=== PATIENT | male | born 1995 | race Caucasian/White ===

== ENCOUNTER 2016-10-15 09:53 | Inpatient (IN) | payer OTHER ==
[2016-10-15 10:32] VITALS: BMI 27.2
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
[2016-10-15] MEDS ORDERED: MENTHOL/PHENOL 1 EACH UD MM PRN (14:00)
[2016-10-15] MEDS ORDERED: guaiFENesin/D-METHORPHAN HB 10 ML UNIT-DOSE CUPS PO PRN (14:00)
[2016-10-15] MEDS ORDERED: diphenhydrAMINE HCL 50 MG CAPSULE PO PRN (14:00)
[2016-10-15] MEDS ORDERED: MAGNESIUM CITRATE 300 ML BOTTLE PO PRN (14:00)
[2016-10-15] MEDS ORDERED: LOPERAMIDE HCL 2 MG CAPSULE PO PRN (14:00)
[2016-10-15] MEDS ORDERED: MAG HYDROX/AL HYDROX/SIMETH 30 ML UNIT-DOSE CUP PO PRN (14:00)
[2016-10-15] MEDS ORDERED: MAGNESIUM HYDROX 2400MG/30ML ORAL SUSPENSION 30 ML CUP PO PRN (14:00)
[2016-10-15] MEDS ORDERED: P-EPHED 60MG/TRIPROLIDI 2.5MG TABLET PO PRN (14:00)
[2016-10-15] MEDS ORDERED: NICOTINE POLACRILEX 4 MG GUM BUC PRN (14:00)
[2016-10-15] MEDS ORDERED: ACETAMINOPHEN 325 MG TABLET (FP) PO PRN (14:00)
[2016-10-15] MEDS ORDERED: METHADONE HCL 10 MG TABLET (FOR DETOX USE ONLY) PO ONE ×2 (14:00→23:00)
[2016-10-15] MEDS ORDERED: hydrOXYzine PAMOATE 50 MG CAPSULE (FP) PO PRN (14:00)
[2016-10-15] MEDS ORDERED: diazePAM 5 MG TABLET PO ONE (14:13)
[2016-10-15] MEDS: diazePAM 5 MG TABLET PO SCH ×2 (14:33→22:12)
[2016-10-15 17:26] LABS: URINE APPEARANCE TURBID; URINE BILIRUBIN NEGATIVE (NEGATIVE); URINE BLOOD NEGATIVE (NEGATIVE); URINE COLOR YELLOW; URINE GLUCOSE (UA) NEGATIVE (NEGATIVE); URINE KETONE NEGATIVE (NEGATIVE); URINE LEUK ESTERASE NEGATIVE (NEGATIVE); URINE NITRITE NEGATIVE (NEGATIVE); URINE PROTEIN NEGATIVE (NEGATIVE); URINE UROBILINOGEN NEGATIVE E.U./dl (0.2-1.0)
[2016-10-15] MEDS: THIAMINE HCL 100 MG TABLET (FP) PO SCH (22:12)
[2016-10-16] MEDS: diazePAM 5 MG TABLET PO PRN ×2 (01:49→10:33)
[2016-10-16] MEDS: IBUPROFEN 400 MG TABLET (FP) PO PRN (01:49)
[2016-10-16] MEDS: diazePAM 5 MG TABLET PO SCH ×3 (06:15→22:35)
[2016-10-16] MEDS ORDERED: METHADONE HCL 10 MG TABLET (FOR DETOX USE ONLY) PO SCH (10:00)
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
[2016-10-16] MEDS: PRENATAL VITAMINS W/ FOLIC ACID TABLET (FP) PO SCH (10:32)
[2016-10-16] MEDS: NICOTINE 21 MG/24 HOURS TOPICAL PATCH TD SCH (10:33)
[2016-10-16 11:02] LABS: MCH 29.1 pg (25.7-33.7); MCHC 33.5 g/dl (32.0-35.9); MEAN CELL VOLUME 86.9 fl (80-96); MEAN PLT VOLUME 9.5 fl (7.5-11.1); PLATELET COUNT 227 K/MM3 (134-434); RDW 14.2 % (11.9-15.9); WHITE BLOOD COUNT 6.8 K/mm3 (4.0-10.0)
[2016-10-16 11:38] LABS: ALBUMIN 4.4 g/dl (3.4-5.0); ANION GAP 9 (8-16); CALCIUM 10.1 mg/dL (8.5-10.1); CO2 29 mmol/L (21-32); CREATININE 1.1 mg/dL (0.7-1.3); GLUCOSE,RANDOM 117 mg/dL (74-106); SGOT/AST 25 U/L (15-37); SGPT/ALT 44 U/L (12-78); TOT PROT 7.6 g/dl (6.4-8.2)
[2016-10-16 11:39] LABS: ALK PHOS 104 U/L (45-117)
--- NOTE | 2016-10-16 13:50 | PN ---
S CIWA - CIWA Score Nausea/Vomitin Muscle Tremors: 4-Moderate,w/Arms Extend Anxiety: 4-Mod. Anxious/Guarded Agitation: 4-Moderately Restless Paroxysmal Sweats: 3 Orientation: 0-Oriented Tacttile Disturbances: 1-Very Mild Itch/Numbness Auditory Disturbances: 0-None Visual Disturbances: 0-None Headache: 1-Very Mild CIWA-Ar Total Score: 20 BHS COWS - Scale Resting Pulse: 1= [place] 81-100 Sweatin= Chills/Flushing Restless Observation: 1= Difficult to Sit Still Pupil Size: 1= Pupils >than Normal Bone or Joint Aches: 1= Mild Discomfort Runny Nose/ Eye Tearin= Nasal Congestion GI Upset > 30mins: 2= Nausea/Diarrhea Tremor Observation of Outstretched Hands: 2= Slight Tremor Visible Yawning Observation: 1= 1-2x During Session Anxiety or Irritability: 2=Irritable/Anxious Goose Flesh Skin: 3=Piloerection COWS Score: 16 S Progress Note (SOAP) Subjective: nausea, sweats, interrupted sleep, anxiety, tremor Objective: 10/16/16 13:50 Vital Signs - 24 hr 10/15/16 10/15/16 10/15/16 14:53 17:45 21:53 Temperature 98.4 F 98.4 F 98.8 F Pulse Rate 80 111 H 81 Respiratory 16 20 18 Rate Blood Pressure 125/78 123/69 146/85 10/16/16 10/16/16 10/16/16 00:30 03:30 06:24 Temperature 97.3 F L Pulse Rate 64 Respiratory 16 18 16 Rate Blood Pressure 122/68 10/16/16 09:59 Temperature 98.1 F Pulse Rate 102 H Respiratory 20 Rate Blood Pressure 141/76 Laboratory Tests 10/15/16 10/16/16 10/16/16 16:00 06:10 06:10 WBC 6.8 RBC 5.44 Hgb 15.9 D Hct 47.3 D MCV 86.9 MCHC 33.5 RDW 14.2 Plt Count 227 D MPV 9.5 Sodium 139 Potassium 4.5 Chloride 101 Carbon Dioxide 29 Anion Gap 9 BUN 13 D Creatinine 1.1 Creat Clearance w eGFR > 60 Random Glucose 117 H D Calcium 10.1 Total Bilirubin 1.0 D AST 25 D ALT 44 D Alkaline Phosphatase 104 Total Protein 7.6 D Albumin 4.4 D Urine Color Yellow Urine Appearance Turbid Urine pH 7.0 Ur Specific [place] 1.019 Urine Protein Negative Urine Glucose (UA) Negative Urine Ketones Negative Urine Blood Negative Urine Nitrite Negative Urine Bilirubin Negative Urine Urobilinogen Negative Ur Leukocyte Esterase Negative Assessment: 10/16/16 13:50 withdrawal sx Plan: cont detox
[2016-10-16] MEDS: THIAMINE HCL 100 MG TABLET (FP) PO SCH (22:35)
[2016-10-16] MEDS: ZOLPIDEM TARTRATE 5 MG TABLET PO PRN (22:35)
[2016-10-17] MEDS: PRENATAL VITAMINS W/ FOLIC ACID TABLET (FP) PO SCH (10:48)
[2016-10-17] MEDS: METHADONE HCL 5 MG TABLET (FOR DETOX USE ONLY) PO SCH (10:48)
[2016-10-17] MEDS: diazePAM 5 MG TABLET PO SCH ×2 (10:49→22:24)
[2016-10-17] MEDS: NICOTINE 21 MG/24 HOURS TOPICAL PATCH TD SCH (10:49)
[2016-10-17] MEDS: IBUPROFEN 400 MG TABLET (FP) PO PRN (10:52)
--- NOTE | 2016-10-17 11:18 | PN ---
S CIWA - CIWA Score Nausea/Vomitin Muscle Tremors: 4-Moderate,w/Arms Extend Anxiety: 4-Mod. Anxious/Guarded Agitation: 4-Moderately Restless Paroxysmal Sweats: 3 Orientation: 0-Oriented Tacttile Disturbances: 0-None Auditory Disturbances: 0-None Visual Disturbances: 0-None Headache: 0-None Present CIWA-Ar Total Score: 18 BHS COWS - Scale Resting Pulse: 0= [place] 80 or Below Sweatin= Chills/Flushing Restless Observation: 1= Difficult to Sit Still Pupil Size: 1= Pupils >than Normal Bone or Joint Aches: 1= Mild Discomfort Runny Nose/ Eye Tearin= Nasal Congestion GI Upset > 30mins: 2= Nausea/Diarrhea Tremor Observation of Outstretched Hands: 2= Slight Tremor Visible Yawning Observation: 1= 1-2x During Session Anxiety or Irritability: 2=Irritable/Anxious Goose Flesh Skin: 3=Piloerection COWS Score: 15 BHS Progress Note (SOAP) Subjective: nausea, sweats, interrupted sleep, anxiety, tremor, Objective: 10/17/16 11:17 Vital Signs - 8 hr 10/17/16 10/17/16 10/17/16 03:30 06:00 10:55 Temperature 97.7 F 97.9 F Pulse Rate 69 75 Respiratory 18 18 20 Rate Blood Pressure 110/74 140/76 Laboratory Tests 10/15/16 10/16/16 10/16/16 16:00 06:10 06:10 WBC 6.8 RBC 5.44 Hgb 15.9 D Hct 47.3 D MCV 86.9 MCHC 33.5 RDW 14.2 Plt Count 227 D MPV 9.5 Sodium 139 Potassium 4.5 Chloride 101 Carbon Dioxide 29 Anion Gap 9 BUN 13 D Creatinine 1.1 Creat Clearance w eGFR > 60 Random Glucose 117 H D Calcium 10.1 Total Bilirubin 1.0 D AST 25 D ALT 44 D Alkaline Phosphatase 104 Total Protein 7.6 D Albumin 4.4 D Urine Color Yellow Urine Appearance Turbid Urine pH 7.0 Ur Specific [place] 1.019 Urine Protein Negative Urine Glucose (UA) Negative Urine Ketones Negative Urine Blood Negative Urine Nitrite Negative Urine Bilirubin Negative Urine Urobilinogen Negative Ur Leukocyte Esterase Negative Assessment: 10/17/16 11:17 withdrawal sx Plan: cont detox
[2016-10-17] MEDS: diazePAM 5 MG TABLET PO PRN ×2 (14:12→23:48)
[2016-10-17] MEDS: ZOLPIDEM TARTRATE 5 MG TABLET PO PRN (22:25)
[2016-10-17] MEDS: THIAMINE HCL 100 MG TABLET (FP) PO SCH (22:26)
[2016-10-18] MEDS: PRENATAL VITAMINS W/ FOLIC ACID TABLET (FP) PO SCH (10:42)
[2016-10-18] MEDS: NICOTINE 21 MG/24 HOURS TOPICAL PATCH TD SCH (10:42)
[2016-10-18] MEDS: diazePAM 5 MG TABLET PO SCH ×2 (10:42→22:07)
[2016-10-18] MEDS: METHADONE HCL 5 MG TABLET (FOR DETOX USE ONLY) PO SCH (10:42)
--- NOTE | 2016-10-18 11:23 | PN ---
BHS Progress Note (SOAP) Subjective: cold sweats, lbp Objective: 10/18/16 11:22 Vital Signs Temperature 97.5 F L 10/18/16 10:12 Pulse Rate 71 10/18/16 10:12 Respiratory Rate 16 10/18/16 10:12 Blood Pressure 141/96 10/18/16 10:12 O2 Sat by Pulse Oximetry (%) Laboratory Tests 10/15/16 10/16/16 10/16/16 16:00 06:10 06:10 WBC 6.8 RBC 5.44 Hgb 15.9 D Hct 47.3 D MCV 86.9 MCHC 33.5 RDW 14.2 Plt Count 227 D MPV 9.5 Sodium 139 Potassium 4.5 Chloride 101 Carbon Dioxide 29 Anion Gap 9 BUN 13 D Creatinine 1.1 Creat Clearance w eGFR > 60 Random Glucose 117 H D Calcium 10.1 Total Bilirubin 1.0 D AST 25 D ALT 44 D Alkaline Phosphatase 104 Total Protein 7.6 D Albumin 4.4 D Urine Color Yellow Urine Appearance Turbid Urine pH 7.0 Ur Specific [place] 1.019 Urine Protein Negative Urine Glucose (UA) Negative Urine Ketones Negative Urine Blood Negative Urine Nitrite Negative Urine Bilirubin Negative Urine Urobilinogen Negative Ur Leukocyte Esterase Negative RPR Titer 10/16/16 06:10 WBC RBC Hgb Hct MCV MCHC RDW Plt Count MPV Sodium Potassium Chloride Carbon Dioxide Anion Gap BUN Creatinine Creat Clearance w eGFR Random Glucose Calcium Total Bilirubin AST ALT Alkaline Phosphatase Total Protein Albumin Urine Color Urine Appearance Urine pH Ur Specific [place] Urine Protein Urine Glucose (UA) Urine Ketones Urine Blood Urine Nitrite Urine Bilirubin Urine Urobilinogen Ur Leukocyte Esterase RPR Titer Nonreactive pt aox3 in nad ambulating Assessment: 10/18/16 11:23 withdrawl sx's Plan: cont. detox increase fluids motrin prn
--- NOTE | 2016-10-18 12:48 | EKG ---
Test Reason : Blood Pressure : / mmHG Vent. Rate : 077 BPM Atrial Rate : 077 BPM P-R Int : 146 ms QRS Dur : 088 ms QT Int : 376 ms P-R-T Axes : 069 072 041 degrees QTc Int : 425 ms NORMAL SINUS RHYTHM NORMAL ECG NO PREVIOUS ECGS AVAILABLE Confirmed by OBIE BRANHAM MD ([id number]) on 10/18/2016 12:48:20 PM Referred By: Confirmed By:OBIE BRANHAM MD
[2016-10-18] MEDS: THIAMINE HCL 100 MG TABLET (FP) PO SCH (22:05)
[2016-10-18] MEDS: ZOLPIDEM TARTRATE 5 MG TABLET PO PRN (22:05)
[2016-10-19] MEDS: IBUPROFEN 400 MG TABLET (FP) PO PRN (00:40)
--- NOTE | 2016-10-19 08:40 | DS ---
[facility] Detox Discharge Summary Admission Date: 10/15/16 Discharge Date: 10/19/16 - History Present History: Opioid Dependence, Sedative Dependence - Physical Exam Results Vital Signs: Vital Signs Temperature 97.7 F 10/19/16 06:18 Pulse Rate 74 10/19/16 06:18 Respiratory Rate 18 10/19/16 06:18 Blood Pressure 114/74 10/19/16 06:18 O2 Sat by Pulse Oximetry (%) - Treatment Hospital Course: Detox Protocol Followed, Detoxed Safely, Responded well, Discharged Condition Good Patient has Accepted a Rehab Referral to: pt will be d/c'ed because of court attendance today. - Medication Discharge Medications: Ambulatory Orders NK [No Known Home Medication] 10/15/16 - Diagnosis (1) Nicotine dependence Current Visit: Yes Status: Chronic Qualifiers: Nicotine product type: cigarettes Substance use status: uncomplicated Qualified Code(s): F17.210 - Nicotine dependence, cigarettes, uncomplicated (2) Opioid dependence with withdrawal Current Visit: Yes Status: Chronic (3) Sedative, hypnotic or anxiolytic dependence with withdrawal, uncomplicated Current Visit: Yes Status: Chronic (4) Amphetamine abuse Current Visit: No Status: Acute (5) Anxiety Current Visit: Yes Status: Chronic - AMA Did Patient Leave Against Medical Advice: No
[2016-10-19] MEDS: PRENATAL VITAMINS W/ FOLIC ACID TABLET (FP) PO SCH (09:19)
[2016-10-19 09:34] VITALS: BP 133/78; PULSE 78; TEMP 97.3
[2016-10-19] MEDS ORDERED: METHADONE HCL 10 MG TABLET (FOR DETOX USE ONLY) PO SCH (10:00)
[2016-10-19] MEDS ORDERED: diazePAM 5 MG TABLET PO SCH (10:00)
[2016-10-20] MEDS ORDERED: METHADONE HCL 5 MG TABLET (FOR DETOX USE ONLY) PO SCH (06:00)
== END 2016-10-19 09:37 | disposition home or self-care (01) | DRG 897 ==
LOC: YASAS 09:53 → Y6N 13:53
PROVIDERS: ADMIT Internal Medicine; ATTEND Internal Medicine
PROC: HZ2ZZZZ Detoxification Services for Substance Abuse Treatment (ICD-10-PCS; principal; 2016-10-15)
DX: F11.23 Opioid dependence with withdrawal (principal); F19.282 Other psychoactive substance dependence with psychoactive substance-induced sleep disorder; F13.230 Sedative, hypnotic or anxiolytic dependence with withdrawal, uncomplicated; F15.10 Other stimulant abuse, uncomplicated; F17.210 Nicotine dependence, cigarettes, uncomplicated; F41.9 Anxiety disorder, unspecified; F19.24 Other psychoactive substance dependence with psychoactive substance-induced mood disorder; F51.01 Primary insomnia
CPT/HCPCS: 36415; 80053; 81003; 85027; 86593; 93005; 93010

== ENCOUNTER 2017-03-09 11:43 | Inpatient (IN) | payer OTHER ==
[2017-03-09 14:03] VITALS: BMI 27.9
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
[2017-03-09] MEDS ORDERED: P-EPHED 60MG/TRIPROLIDI 2.5MG TABLET PO PRN (15:15)
[2017-03-09] MEDS ORDERED: MENTHOL/PHENOL 1 EACH UD MM PRN (15:15)
[2017-03-09] MEDS ORDERED: ACETAMINOPHEN 325 MG TABLET (FP) PO PRN (15:15)
[2017-03-09] MEDS ORDERED: LOPERAMIDE HCL 2 MG CAPSULE PO PRN (15:15)
[2017-03-09] MEDS ORDERED: MAG HYDROX/AL HYDROX/SIMETH 30 ML UNIT-DOSE CUP PO PRN (15:15)
[2017-03-09] MEDS ORDERED: MAGNESIUM HYDROX 2400MG/30ML ORAL SUSPENSION 30 ML CUP PO PRN (15:15)
[2017-03-09] MEDS ORDERED: guaiFENesin/D-METHORPHAN HB 10 ML UNIT-DOSE CUPS PO PRN (15:15)
[2017-03-09] MEDS ORDERED: IBUPROFEN 400 MG TABLET (FP) PO PRN (15:15)
[2017-03-09] MEDS ORDERED: hydrOXYzine PAMOATE 50 MG CAPSULE (FP) PO PRN (15:15)
[2017-03-09] MEDS ORDERED: MAGNESIUM CITRATE 300 ML BOTTLE PO PRN (15:15)
[2017-03-09] MEDS ORDERED: METHADONE HCL 10 MG TABLET (FOR DETOX USE ONLY) PO ONE ×2 (15:50→23:00)
[2017-03-09] MEDS: diazePAM 5 MG TABLET PO PRN ×2 (16:51→22:29)
[2017-03-09] MEDS: NICOTINE POLACRILEX 4 MG GUM BUC PRN (18:47)
[2017-03-09] MEDS: THIAMINE HCL 100 MG TABLET (FP) PO SCH (22:29)
[2017-03-09] MEDS: diphenhydrAMINE HCL 50 MG CAPSULE PO PRN (22:29)
[2017-03-09 22:38] LABS: URINE APPEARANCE CLEAR; URINE BILIRUBIN NEGATIVE (NEGATIVE); URINE BLOOD NEGATIVE (NEGATIVE); URINE COLOR YELLOW; URINE GLUCOSE (UA) NEGATIVE (NEGATIVE); URINE KETONE NEGATIVE (NEGATIVE); URINE LEUK ESTERASE NEGATIVE (NEGATIVE); URINE NITRITE NEGATIVE (NEGATIVE); URINE PROTEIN NEGATIVE (NEGATIVE); URINE UROBILINOGEN NEGATIVE E.U./dl (0.2-1.0)
[2017-03-10] MEDS: diazePAM 5 MG TABLET PO PRN ×4 (06:05→22:31)
[2017-03-10 09:47] LABS: MCH 29.1 pg (25.7-33.7); MEAN CELL VOLUME 85.8 fl (80-96); MEAN PLT VOLUME 9.5 fl (7.5-11.1); PLATELET COUNT 212 K/MM3 (134-434); WHITE BLOOD COUNT 6.8 K/mm3 (4.0-10.0)
[2017-03-10] MEDS ORDERED: METHADONE HCL 10 MG TABLET (FOR DETOX USE ONLY) PO ONE (10:00)
[2017-03-10] MEDS: PRENATAL VITAMINS W/ FOLIC ACID TABLET (FP) PO SCH (10:57)
[2017-03-10] MEDS: NICOTINE 21 MG/24 HOURS TOPICAL PATCH TD SCH (10:58)
--- NOTE | 2017-03-10 12:37 | PN ---
BHS COWS - Scale Resting Pulse: 0= [place] 80 or Below Sweatin= Chills/Flushing Restless Observation: 3= Extraneous Movement Pupil Size: 2= Moderately Dilated Bone or Joint Aches: 4=Acute Joint/Muscle Pain Runny Nose/ Eye Tearin= Nasal Congestion GI Upset > 30mins: 1= Stomach Cramp Tremor Observation of Outstretched Hands: 2= Slight Tremor Visible Yawning Observation: 1= 1-2x During Session Anxiety or Irritability: 2=Irritable/Anxious Goose Flesh Skin: 0=Smooth Skin COWS Score: 17 BHS Progress Note (SOAP) Subjective: ANXIETY,SWEATS,IRRITABILITY,INTERMITTENT SLEEP...BENADRYL 50 MG PO X1 NOT EFFECTIVE. Objective: 03/10/17 12:35 Vital Signs Temperature 96.1 F L 03/10/17 09:02 Pulse Rate 73 03/10/17 09:02 Respiratory Rate 18 03/10/17 09:02 Blood Pressure 121/74 03/10/17 09:02 O2 Sat by Pulse Oximetry (%) Laboratory Last Values WBC 6.8 K/mm3 (4.0-10.0) 03/10/17 06:00 RBC 4.80 M/mm3 (4.00-5.60) 03/10/17 06:00 Hgb 14.0 GM/dL (11.7-16.9) D 03/10/17 06:00 Hct 41.2 % (35.4-49) 03/10/17 06:00 MCV 85.8 fl (80-96) 03/10/17 06:00 MCHC 34.0 g/dl (32.0-35.9) 03/10/17 06:00 RDW 13.0 % (11.9-15.9) 03/10/17 06:00 Plt Count 212 K/MM3 (134-434) 03/10/17 06:00 MPV 9.5 fl (7.5-11.1) 03/10/17 06:00 Urine Color Yellow 03/09/17 22:15 Urine Appearance Clear 03/09/17 22:15 Urine pH 5.0 (5.0-8.0) D 03/09/17 22:15 Ur Specific [place] 1.025 (1.005-1.025) 03/09/17 22:15 Urine Protein Negative (NEGATIVE) 03/09/17 22:15 Urine Glucose (UA) Negative (NEGATIVE) 03/09/17 22:15 Urine Ketones Negative (NEGATIVE) 03/09/17 22:15 Urine Blood Negative (NEGATIVE) 03/09/17 22:15 Urine Nitrite Negative (NEGATIVE) 03/09/17 22:15 Urine Bilirubin Negative (NEGATIVE) 03/09/17 22:15 Urine Urobilinogen Negative E.U./dl (0.2-1.0) 03/09/17 22:15 Ur Leukocyte Esterase Negative (NEGATIVE) 03/09/17 22:15 Assessment: 03/10/17 12:35 WITHDRAWAL SX Plan: CONTINUE DETOX BENADRYL 50 MG PO X2 TONIGHT, IF X1 NOT EFFECTIVE INCREASE PO FLUIDS
--- NOTE | 2017-03-10 12:41 | EKG ---
Test Reason : Blood Pressure : / mmHG Vent. Rate : 082 BPM Atrial Rate : 082 BPM P-R Int : 148 ms QRS Dur : 096 ms QT Int : 390 ms P-R-T Axes : 078 080 062 degrees QTc Int : 455 ms NORMAL SINUS RHYTHM NORMAL ECG WHEN COMPARED WITH ECG OF 15-OCT-2016 15:00, NO SIGNIFICANT CHANGE WAS FOUND Confirmed by SABA MADERA MD ([id number]) on 03/10/2017 12:41:15 PM Referred By: Confirmed By:SABA MADERA MD
[2017-03-10 13:27] LABS: ALBUMIN 4.5 g/dl (3.4-5.0); ALK PHOS 133 U/L (45-117); ANION GAP 15 (8-16); BILIRUBIN,TOTAL 1.4 mg/dL (0.2-1.0); CALCIUM 9.6 mg/dL (8.5-10.1); CO2 23 mmol/L (21-32); CREATININE 1.3 mg/dL (0.7-1.3); GLUCOSE,RANDOM 128 mg/dL (74-106); SGOT/AST 21 U/L (15-37); SGPT/ALT 40 U/L (12-78)
[2017-03-10 14:39] LABS: HIV 1 & 2 AB NEGATIVE; HIV 1 AGp24 NEGATIVE
[2017-03-10] MEDS: NICOTINE POLACRILEX 4 MG GUM BUC PRN ×2 (20:10→22:32)
[2017-03-10] MEDS: THIAMINE HCL 100 MG TABLET (FP) PO SCH (22:31)
[2017-03-10] MEDS: diphenhydrAMINE HCL 50 MG CAPSULE PO PRN (22:31)
[2017-03-11] MEDS: diazePAM 5 MG TABLET PO PRN ×4 (06:00→21:13)
[2017-03-11] MEDS ORDERED: METHADONE HCL 5 MG TABLET (FOR DETOX USE ONLY) PO ONE (10:00)
[2017-03-11] MEDS: NICOTINE 21 MG/24 HOURS TOPICAL PATCH TD SCH (10:29)
[2017-03-11] MEDS: PRENATAL VITAMINS W/ FOLIC ACID TABLET (FP) PO SCH (10:29)
--- NOTE | 2017-03-11 11:15 | PN ---
BHS COWS - Scale Resting Pulse: 1= [place] 81-100 Sweatin= Chills/Flushing Restless Observation: 3= Extraneous Movement Pupil Size: 2= Moderately Dilated Bone or Joint Aches: 4=Acute Joint/Muscle Pain Runny Nose/ Eye Tearin= Nasal Congestion GI Upset > 30mins: 1= Stomach Cramp Tremor Observation of Outstretched Hands: 1= Tremor [place], Not Seen Yawning Observation: 1= 1-2x During Session Anxiety or Irritability: 2=Irritable/Anxious Goose Flesh Skin: 0=Smooth Skin COWS Score: 17 BHS Progress Note (SOAP) Subjective: ANXIETY, MUSCLE ACHES/SPASMS,IRRITABILITY, SWEATS/CHILLS. Objective: 03/11/17 11:15 Vital Signs Temperature 98.2 F 03/11/17 09:59 Pulse Rate 86 03/11/17 09:59 Respiratory Rate 18 03/11/17 09:59 Blood Pressure 133/84 03/11/17 09:59 O2 Sat by Pulse Oximetry (%) Laboratory Last Values WBC 6.8 K/mm3 (4.0-10.0) 03/10/17 06:00 RBC 4.80 M/mm3 (4.00-5.60) 03/10/17 06:00 Hgb 14.0 GM/dL (11.7-16.9) D 03/10/17 06:00 Hct 41.2 % (35.4-49) 03/10/17 06:00 MCV 85.8 fl (80-96) 03/10/17 06:00 MCHC 34.0 g/dl (32.0-35.9) 03/10/17 06:00 RDW 13.0 % (11.9-15.9) 03/10/17 06:00 Plt Count 212 K/MM3 (134-434) 03/10/17 06:00 MPV 9.5 fl (7.5-11.1) 03/10/17 06:00 Sodium 138 mmol/L (136-145) 03/10/17 06:00 Potassium 3.9 mmol/L (3.5-5.1) 03/10/17 06:00 Chloride 100 mmol/L (98-107) 03/10/17 06:00 Carbon Dioxide 23 mmol/L (21-32) D 03/10/17 06:00 Anion Gap 15 (8-16) 03/10/17 06:00 BUN 23 mg/dL (7-18) H D 03/10/17 06:00 Creatinine 1.3 mg/dL (0.7-1.3) 03/10/17 06:00 Creat Clearance w eGFR > 60 (>60) 03/10/17 06:00 Random Glucose 128 mg/dL (74-106) H 03/10/17 06:00 Calcium 9.6 mg/dL (8.5-10.1) 03/10/17 06:00 Total Bilirubin 1.4 mg/dL (0.2-1.0) H D 03/10/17 06:00 AST 21 U/L (15-37) 03/10/17 06:00 ALT 40 U/L (12-78) 03/10/17 06:00 Alkaline Phosphatase 133 U/L (45-117) H D 03/10/17 06:00 Total Protein 8.0 g/dl (6.4-8.2) 03/10/17 06:00 Albumin 4.5 g/dl (3.4-5.0) 03/10/17 06:00 Urine Color Yellow 03/09/17 22:15 Urine Appearance Clear 03/09/17 22:15 Urine pH 5.0 (5.0-8.0) D 03/09/17 22:15 Ur Specific [place] 1.025 (1.005-1.025) 03/09/17 22:15 Urine Protein Negative (NEGATIVE) 03/09/17 22:15 Urine Glucose (UA) Negative (NEGATIVE) 03/09/17 22:15 Urine Ketones Negative (NEGATIVE) 03/09/17 22:15 Urine Blood Negative (NEGATIVE) 03/09/17 22:15 Urine Nitrite Negative (NEGATIVE) 03/09/17 22:15 Urine Bilirubin Negative (NEGATIVE) 03/09/17 22:15 Urine Urobilinogen Negative E.U./dl (0.2-1.0) 03/09/17 22:15 Ur Leukocyte Esterase Negative (NEGATIVE) 03/09/17 22:15 RPR Titer Nonreactive (NONREACTIVE) 03/10/17 06:00 HIV 1&2 Antibody Screen Negative 03/09/17 06:00 HIV P24 Antigen Negative 03/09/17 06:00 Assessment: 03/11/17 11:15 WITHDRAWAL SX Plan: CONTINUE DETOX
[2017-03-11] MEDS: THIAMINE HCL 100 MG TABLET (FP) PO SCH (21:13)
[2017-03-11] MEDS: diphenhydrAMINE HCL 50 MG CAPSULE PO PRN (21:13)
[2017-03-12] MEDS: diazePAM 5 MG TABLET PO PRN ×3 (05:59→14:22)
[2017-03-12] MEDS ORDERED: METHADONE HCL 5 MG TABLET (FOR DETOX USE ONLY) PO ONE (10:00)
[2017-03-12] MEDS: PRENATAL VITAMINS W/ FOLIC ACID TABLET (FP) PO SCH (10:17)
[2017-03-12] MEDS: NICOTINE 21 MG/24 HOURS TOPICAL PATCH TD SCH (10:17)
[2017-03-12] MEDS: NICOTINE POLACRILEX 4 MG GUM BUC PRN (14:22)
--- NOTE | 2017-03-12 18:57 | PN ---
BHS Progress Note (SOAP) Subjective: Sweating (mild) only symptom reported by patient today. Objective: PT. A & O X 3, OBSERVED AMBULATING ON UNIT. NO ACUTE DISTRESS. 03/12/17 18:51 Vital Signs Temperature 98.2 F 03/12/17 17:22 Pulse Rate 89 03/12/17 17:22 Respiratory Rate 18 03/12/17 17:22 Blood Pressure 104/65 03/12/17 17:22 O2 Sat by Pulse Oximetry (%) Laboratory Tests 03/09/17 03/09/17 03/10/17 06:00 22:15 06:00 WBC 6.8 RBC 4.80 Hgb 14.0 D Hct 41.2 MCV 85.8 MCHC 34.0 RDW 13.0 Plt Count 212 MPV 9.5 Sodium Potassium Chloride Carbon Dioxide Anion Gap BUN Creatinine Creat Clearance w eGFR Random Glucose Calcium Total Bilirubin AST ALT Alkaline Phosphatase Total Protein Albumin Urine Color Yellow Urine Appearance Clear Urine pH 5.0 D Ur Specific [place] 1.025 Urine Protein Negative Urine Glucose (UA) Negative Urine Ketones Negative Urine Blood Negative Urine Nitrite Negative Urine Bilirubin Negative Urine Urobilinogen Negative Ur Leukocyte Esterase Negative RPR Titer HIV 1&2 Antibody Screen Negative HIV P24 Antigen Negative 03/10/17 03/10/17 06:00 06:00 WBC RBC Hgb Hct MCV MCHC RDW Plt Count MPV Sodium 138 Potassium 3.9 Chloride 100 Carbon Dioxide 23 D Anion Gap 15 BUN 23 H D Creatinine 1.3 Creat Clearance w eGFR > 60 Random Glucose 128 H Calcium 9.6 Total Bilirubin 1.4 H D AST 21 ALT 40 Alkaline Phosphatase 133 H D Total Protein 8.0 Albumin 4.5 Urine Color Urine Appearance Urine pH Ur Specific [place] Urine Protein Urine Glucose (UA) Urine Ketones Urine Blood Urine Nitrite Urine Bilirubin Urine Urobilinogen Ur Leukocyte Esterase RPR Titer Nonreactive HIV 1&2 Antibody Screen HIV P24 Antigen LABS NOTED. Assessment: 03/12/17 18:52 WITHDRAWAL SYMPTOMS. Plan: WITHDRAWAL SYMPTOMS. PATIENT REPORTS THAT HE IS GENERALLY FEELING WELL. DETOX MEDICATION (METHADONE) SCHEDULE MODIFIED SO THAT PATIENT MAY LEAVE ON 03/13/2017 RATHER THAN ON 2016. ADVISED PATIENT TO FOLLOW-UP WITH [facility] AFTER DISCHARGE FROM DETOX FOR GENERAL MEDICAL ASSESSMENT AND FOR ELEVATED ADMISSION BUN AND RANDOM GLUCOSE LEVELS.
[2017-03-12] MEDS: diphenhydrAMINE HCL 50 MG CAPSULE PO PRN (22:01)
[2017-03-12] MEDS: THIAMINE HCL 100 MG TABLET (FP) PO SCH (22:01)
[2017-03-13] MEDS ORDERED: METHADONE HCL 5 MG TABLET (FOR DETOX USE ONLY) PO ONE (06:00)
[2017-03-13 06:52] VITALS: BP 135/84; PULSE 110; TEMP 97.8
[2017-03-13] MEDS ORDERED: METHADONE HCL 10 MG TABLET (FOR DETOX USE ONLY) PO ONE (10:00)
--- NOTE | 2017-03-13 12:33 | DS ---
[facility] Detox Discharge Summary Admission Date: 03/09/17 Discharge Date: 03/13/17 - History Present History: Opioid Dependence Pertinent Past History: Denies - Physical Exam Results Vital Signs: Vital Signs Temperature 97.8 F 03/13/17 06:52 Pulse Rate 110 H 03/13/17 06:52 Respiratory Rate 18 03/13/17 06:52 Blood Pressure 135/84 03/13/17 06:52 O2 Sat by Pulse Oximetry (%) Pertinent Admission Physical Exam Findings: Withdrawal symptoms Laboratory Tests 03/09/17 03/09/17 03/10/17 06:00 22:15 06:00 WBC 6.8 RBC 4.80 Hgb 14.0 D Hct 41.2 MCV 85.8 MCHC 34.0 RDW 13.0 Plt Count 212 MPV 9.5 Sodium Potassium Chloride Carbon Dioxide Anion Gap BUN Creatinine Creat Clearance w eGFR Random Glucose Calcium Total Bilirubin AST ALT Alkaline Phosphatase Total Protein Albumin Urine Color Yellow Urine Appearance Clear Urine pH 5.0 D Ur Specific [place] 1.025 Urine Protein Negative Urine Glucose (UA) Negative Urine Ketones Negative Urine Blood Negative Urine Nitrite Negative Urine Bilirubin Negative Urine Urobilinogen Negative Ur Leukocyte Esterase Negative RPR Titer HIV 1&2 Antibody Screen Negative HIV P24 Antigen Negative 03/10/17 03/10/17 06:00 06:00 WBC RBC Hgb Hct MCV MCHC RDW Plt Count MPV Sodium 138 Potassium 3.9 Chloride 100 Carbon Dioxide 23 D Anion Gap 15 BUN 23 H D Creatinine 1.3 Creat Clearance w eGFR > 60 Random Glucose 128 H Calcium 9.6 Total Bilirubin 1.4 H D AST 21 ALT 40 Alkaline Phosphatase 133 H D Total Protein 8.0 Albumin 4.5 Urine Color Urine Appearance Urine pH Ur Specific [place] Urine Protein Urine Glucose (UA) Urine Ketones Urine Blood Urine Nitrite Urine Bilirubin Urine Urobilinogen Ur Leukocyte Esterase RPR Titer Nonreactive HIV 1&2 Antibody Screen HIV P24 Antigen Labs noted - Treatment Hospital Course: Detox Protocol Followed, Detoxed Safely, Responded well, Discharged Condition Good - Medication Discharge Medications: Ambulatory Orders NK [No Known Home Medication] 10/15/16 - Diagnosis (1) Nicotine dependence Status: Chronic Qualifiers: Nicotine product type: cigarettes Substance use status: uncomplicated Qualified Code(s): F17.210 - Nicotine dependence, cigarettes, uncomplicated (2) Opioid dependence with withdrawal Status: Acute - AMA Did Patient Leave Against Medical Advice: No
[2017-03-14] MEDS ORDERED: METHADONE HCL 5 MG TABLET (FOR DETOX USE ONLY) PO ONE (06:00)
== END 2017-03-13 09:32 | disposition home or self-care (01) | DRG 897 ==
LOC: YASAS 11:43 → Y3N 15:36
PROVIDERS: ADMIT Internal Medicine; ATTEND Internal Medicine
PROC: HZ2ZZZZ Detoxification Services for Substance Abuse Treatment (ICD-10-PCS; principal; 2017-03-09)
DX: F11.23 Opioid dependence with withdrawal (principal); F17.210 Nicotine dependence, cigarettes, uncomplicated; R00.0 Tachycardia, unspecified
CPT/HCPCS: 36415; 80053; 81003; 85027; 86593; 87389; 93005; 93010

== ENCOUNTER 2018-02-06 16:03 | Inpatient (IN) | payer BC, OTHER ==
[2018-02-06 18:00] VITALS: BMI 26.9
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
[2018-02-06] MEDS ORDERED: MAGNESIUM HYDROX 2400MG/30ML ORAL SUSPENSION 30 ML CUP PO PRN (21:10)
[2018-02-06] MEDS ORDERED: P-EPHED 60MG/TRIPROLIDI 2.5MG TABLET PO PRN (21:10)
[2018-02-06] MEDS ORDERED: guaiFENesin/D-METHORPHAN HB 10 ML UNIT-DOSE CUPS PO PRN (21:10)
[2018-02-06] MEDS ORDERED: ACETAMINOPHEN 325 MG TABLET (FP) PO PRN (21:10)
[2018-02-06] MEDS ORDERED: MAG HYDROX/AL HYDROX/SIMETH 30 ML UNIT-DOSE CUP PO PRN (21:10)
[2018-02-06] MEDS ORDERED: hydrOXYzine PAMOATE 50 MG CAPSULE (FP) PO PRN (21:10)
[2018-02-06] MEDS ORDERED: MAGNESIUM CITRATE 300 ML BOTTLE PO PRN (21:10)
[2018-02-06] MEDS ORDERED: MENTHOL/PHENOL 1 EACH UD MM PRN (21:10)
[2018-02-06] MEDS ORDERED: IBUPROFEN 400 MG TABLET (FP) PO PRN (21:10)
[2018-02-06] MEDS ORDERED: LOPERAMIDE HCL 2 MG CAPSULE PO PRN (21:10)
[2018-02-06] MEDS ORDERED: NICOTINE POLACRILEX 2 MG GUM BC PRN (21:10)
[2018-02-06] MEDS ORDERED: diazePAM 5 MG TABLET PO ONE (22:00)
[2018-02-06] MEDS ORDERED: MELATONIN 5 MG TABLETS PO PRN (22:00)
[2018-02-06] MEDS ORDERED: METHADONE HCL 10 MG TABLET (FOR DETOX USE ONLY) PO ONE ×2 (22:00→23:00)
[2018-02-06] MEDS: THIAMINE HCL 100 MG TABLET (FP) PO SCH (22:36)
[2018-02-06] MEDS: LIDOCAINE PATCH REMOVAL MC SCH (22:42)
[2018-02-06] MEDS: LIDOCAINE 5% TOPICAL PATCH TP SCH (22:42)
[2018-02-06] MEDS: diazePAM 5 MG TABLET PO SCH (22:47)
[2018-02-07 00:07] LABS: URINE APPEARANCE CLEAR; URINE BILIRUBIN NEGATIVE (<2.0 mg/dL); URINE COLOR YELLOW; URINE GLUCOSE (UA) NEGATIVE (NEGATIVE); URINE KETONE NEGATIVE (NEGATIVE); URINE LEUK ESTERASE NEGATIVE (NEGATIVE); URINE NITRITE NEGATIVE (NEGATIVE); URINE PROTEIN NEGATIVE (NEGATIVE); URINE UROBILINOGEN NEGATIVE mg/dL (0.2-1.0)
[2018-02-07] MEDS: diazePAM 5 MG TABLET PO SCH ×3 (05:40→22:21)
[2018-02-07] MEDS ORDERED: METHADONE HCL 10 MG TABLET (FOR DETOX USE ONLY) PO SCH (10:00)
[2018-02-07 10:15] LABS: MCHC 34.4 g/dl (32.0-35.9); PLATELET COUNT 190 K/MM3 (134-434); RBC 4.02 M/mm3 (4.00-5.60); WHITE BLOOD COUNT 4.3 K/mm3 (4.0-10.0)
[2018-02-07 10:22] LABS: ALBUMIN 3.4 g/dl (3.4-5.0); BLOOD UREA NITROGEN 14 mg/dL (7-18); CALCIUM 8.5 mg/dL (8.5-10.1); CHLORIDE 106 mmol/L (98-107); SODIUM 142 mmol/L (136-145)
[2018-02-07 10:28] LABS: ALK PHOS 98 U/L (45-117); ANION GAP 8 (8-16); BILIRUBIN,TOTAL 0.4 mg/dL (0.2-1.0); CO2 28 mmol/L (21-32); GLUCOSE,RANDOM 90 mg/dL (74-106); SGOT/AST 16 U/L (15-37); SGPT/ALT 29 U/L (12-78); TOT PROT 6.3 g/dl (6.4-8.2)
[2018-02-07] MEDS: NICOTINE 21 MG/24 HOURS TOPICAL PATCH TD SCH (10:33)
[2018-02-07] MEDS: PRENATAL VITAMINS W/ FOLIC ACID TABLET (FP) PO SCH (10:33)
[2018-02-07] MEDS: diazePAM 5 MG TABLET PO PRN (10:36)
[2018-02-07] MEDS: LIDOCAINE 5% TOPICAL PATCH TP SCH (11:23)
--- NOTE | 2018-02-07 12:00 | EKG ---
Test Reason : Blood Pressure : / mmHG Vent. Rate : 073 BPM Atrial Rate : 073 BPM P-R Int : 144 ms QRS Dur : 092 ms QT Int : 416 ms P-R-T Axes : 066 074 051 degrees QTc Int : 458 ms NORMAL SINUS RHYTHM WITH SINUS ARRHYTHMIA NORMAL ECG WHEN COMPARED WITH ECG OF 09-MAR-2017 16:02, NO SIGNIFICANT CHANGE WAS FOUND Confirmed by MD RONAK, SONY ([id number]) on 02/07/2018 11:59:58 AM Referred By: Confirmed By:SONY SIMONS MD
--- NOTE | 2018-02-07 12:38 | PN ---
[facility] CIWA - CIWA Score Nausea/Vomitin-No Nausea/No Vomiting Muscle Tremors: None Anxiety: 4-Mod. Anxious/Guarded Agitation: 3 Paroxysmal Sweats: No Perspiration Orientation: 0-Oriented Tacttile Disturbances: 3-Moderate Itch/Numb/Burn Auditory Disturbances: 2-Mild Harshness/Frighten Visual Disturbances: 3-Moderate Sensitivity Headache: 0-None Present CIWA-Ar Total Score: 15 S COWS - Scale Resting Pulse: 0= [place] 80 or Below Sweatin= No chills or Flushing Restless Observation: 0= Sits Still Pupil Size: 0= Normal to Room Light Bone or Joint Aches: 2= Severe Diffuse Aches Runny Nose/ Eye Tearin= Runny Nose/Eyes GI Upset > 30mins: 1= Stomach Cramp Tremor Observation of Outstretched Hands: 0= None Yawning Observation: 2= >3x During Session Anxiety or Irritability: 2=Irritable/Anxious Goose Flesh Skin: 3=Piloerection COWS Score: 12 S Progress Note (SOAP) Subjective: Interrupted Sleep, Stomach Cramping, Anxious, Fatigue, Body Aches. Objective: PATIENT A & O X 3. NO ACUTE DISTRESS. 02/07/18 12:36 Vital Signs Temperature 99 F 02/07/18 09:29 Pulse Rate 75 02/07/18 09:29 Respiratory Rate 18 02/07/18 09:29 Blood Pressure 134/88 02/07/18 09:29 O2 Sat by Pulse Oximetry (%) Laboratory Tests 02/06/18 02/07/18 02/07/18 23:50 07:00 07:00 WBC 4.3 D RBC 4.02 Hgb 12.0 D Hct 35.0 L D MCV 87.0 MCH 30.0 MCHC 34.4 RDW 13.0 Plt Count 190 MPV 9.0 Sodium 142 Potassium 4.0 Chloride 106 Carbon Dioxide 28 D Anion Gap 8 BUN 14 D Creatinine 1.0 D Creat Clearance w eGFR > 60 Random Glucose 90 D Calcium 8.5 Total Bilirubin 0.4 D AST 16 D ALT 29 D Alkaline Phosphatase 98 D Total Protein 6.3 L D Albumin 3.4 D Urine Color Yellow Urine Appearance Clear Urine pH 5.0 Ur Specific [place] 1.034 Urine Protein Negative Urine Glucose (UA) Negative Urine Ketones Negative Urine Blood Negative Urine Nitrite Negative Urine Bilirubin Negative Urine Urobilinogen Negative Ur Leukocyte Esterase Negative RPR Titer 02/07/18 07:00 WBC RBC Hgb Hct MCV MCH MCHC RDW Plt Count MPV Sodium Potassium Chloride Carbon Dioxide Anion Gap BUN Creatinine Creat Clearance w eGFR Random Glucose Calcium Total Bilirubin AST ALT Alkaline Phosphatase Total Protein Albumin Urine Color Urine Appearance Urine pH Ur Specific [place] Urine Protein Urine Glucose (UA) Urine Ketones Urine Blood Urine Nitrite Urine Bilirubin Urine Urobilinogen Ur Leukocyte Esterase RPR Titer Nonreactive LABS NOTED. Assessment: 02/07/18 12:37 WITHDRAWAL SYMPTOMS. Plan: CONTINUE DETOX. INCREASE DAILY PO FLUID INTAKE. ENCOURAGE AMBULATION.
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
[2018-02-07] MEDS ORDERED: ZOLPIDEM TARTRATE 5 MG TABLET PO PRN (22:00)
[2018-02-07] MEDS: THIAMINE HCL 100 MG TABLET (FP) PO SCH (22:21)
[2018-02-07] MEDS: LIDOCAINE PATCH REMOVAL MC SCH (22:30)
[2018-02-08] MEDS: diazePAM 5 MG TABLET PO PRN (06:56)
[2018-02-08 09:43] VITALS: BP 129/70; PULSE 63; TEMP 98.3
[2018-02-08] MEDS ORDERED: diazePAM 5 MG TABLET PO SCH (10:00)
[2018-02-08] MEDS ORDERED: METHADONE HCL 5 MG TABLET (FOR DETOX USE ONLY) PO SCH (10:00)
[2018-02-08] MEDS: LIDOCAINE 5% TOPICAL PATCH TP SCH (10:56)
[2018-02-08] MEDS: PRENATAL VITAMINS W/ FOLIC ACID TABLET (FP) PO SCH (10:56)
[2018-02-08] MEDS: NICOTINE 21 MG/24 HOURS TOPICAL PATCH TD SCH (10:56)
--- NOTE | 2018-02-08 12:26 | PN ---
S CIWA - CIWA Score Nausea/Vomitin-No Nausea/No Vomiting Muscle Tremors: None Anxiety: 4-Mod. Anxious/Guarded Agitation: 5 Paroxysmal Sweats: 3 Orientation: 0-Oriented Tacttile Disturbances: 2-Mild Itch/Numbness/Burn Auditory Disturbances: 0-None Visual Disturbances: 2-Mild Sensitivity Headache: 0-None Present CIWA-Ar Total Score: 16 S COWS - Scale Resting Pulse: 0= [place] 80 or Below Sweatin=Flushed/Facial Moisture Restless Observation: 1= Difficult to Sit Still Pupil Size: 0= Normal to Room Light Bone or Joint Aches: 2= Severe Diffuse Aches Runny Nose/ Eye Tearin= None GI Upset > 30mins: 0= None Tremor Observation of Outstretched Hands: 0= None Yawning Observation: 2= >3x During Session Anxiety or Irritability: 2=Irritable/Anxious Goose Flesh Skin: 3=Piloerection COWS Score: 12 S Progress Note (SOAP) Subjective: Sweating, Anxious, Body Aches, Fatigue. Objective: PATIENT A & O X 3, OBSERVED AMBULATING ON UNIT. NO ACUTE DISTRESS. 02/08/18 12:25 Vital Signs Temperature 98.3 F 02/08/18 09:42 Pulse Rate 63 02/08/18 09:42 Respiratory Rate 18 02/08/18 09:42 Blood Pressure 129/70 02/08/18 09:42 O2 Sat by Pulse Oximetry (%) Laboratory Tests 02/06/18 02/07/18 02/07/18 23:50 07:00 07:00 WBC 4.3 D RBC 4.02 Hgb 12.0 D Hct 35.0 L D MCV 87.0 MCH 30.0 MCHC 34.4 RDW 13.0 Plt Count 190 MPV 9.0 Sodium 142 Potassium 4.0 Chloride 106 Carbon Dioxide 28 D Anion Gap 8 BUN 14 D Creatinine 1.0 D Creat Clearance w eGFR > 60 Random Glucose 90 D Calcium 8.5 Total Bilirubin 0.4 D AST 16 D ALT 29 D Alkaline Phosphatase 98 D Total Protein 6.3 L D Albumin 3.4 D Urine Color Yellow Urine Appearance Clear Urine pH 5.0 Ur Specific [place] 1.034 Urine Protein Negative Urine Glucose (UA) Negative Urine Ketones Negative Urine Blood Negative Urine Nitrite Negative Urine Bilirubin Negative Urine Urobilinogen Negative Ur Leukocyte Esterase Negative RPR Titer 02/07/18 07:00 WBC RBC Hgb Hct MCV MCH MCHC RDW Plt Count MPV Sodium Potassium Chloride Carbon Dioxide Anion Gap BUN Creatinine Creat Clearance w eGFR Random Glucose Calcium Total Bilirubin AST ALT Alkaline Phosphatase Total Protein Albumin Urine Color Urine Appearance Urine pH Ur Specific [place] Urine Protein Urine Glucose (UA) Urine Ketones Urine Blood Urine Nitrite Urine Bilirubin Urine Urobilinogen Ur Leukocyte Esterase RPR Titer Nonreactive LABS NOTED. Assessment: 02/08/18 12:26 WITHDRAWAL SYMPTOMS. Plan: CONTINUE DETOX. INCREASE DAILY PO FLUID INTAKE.
--- NOTE | 2018-02-08 12:27 | DS ---
[facility] Detox Discharge Summary Admission Date: 02/06/18 Discharge Date: 02/08/18 - History Present History: Opioid Dependence, Sedative Dependence Additional Comments: PATIENT DOES NOT WISH TO STAY TO COMPLETE DETOX REGIMEN. RISKS OF LEAVING DETOX UNIT AGAINST MEDICAL ADVICE AND PRIOR TO COMPLETION OF DETOX REGIMEN EXPLAINED TO PATIENT. PATIENT ADVISED TO GO IMMEDIATELY TO NEAREST ER SHOULD ANY INTOLERABLE DETOX SYMPTOMS DEVELOP AT ANY TIME. PATIENT LEFT DETOX UNIT IN STABLE MEDICAL CONDITION. Pertinent Past History: Anxious, Insomnia, Depression, History of Gastric Ulcer, Back Pain, Nicotine Dependence. - Physical Exam Results Vital Signs: Vital Signs Temperature 98.3 F 02/08/18 09:42 Pulse Rate 63 02/08/18 09:42 Respiratory Rate 18 02/08/18 09:42 Blood Pressure 129/70 02/08/18 09:42 O2 Sat by Pulse Oximetry (%) Pertinent Admission Physical Exam Findings: WITHDRAWAL SYMPTOMS. Laboratory Tests 02/06/18 02/07/18 02/07/18 23:50 07:00 07:00 WBC 4.3 D RBC 4.02 Hgb 12.0 D Hct 35.0 L D MCV 87.0 MCH 30.0 MCHC 34.4 RDW 13.0 Plt Count 190 MPV 9.0 Sodium 142 Potassium 4.0 Chloride 106 Carbon Dioxide 28 D Anion Gap 8 BUN 14 D Creatinine 1.0 D Creat Clearance w eGFR > 60 Random Glucose 90 D Calcium 8.5 Total Bilirubin 0.4 D AST 16 D ALT 29 D Alkaline Phosphatase 98 D Total Protein 6.3 L D Albumin 3.4 D Urine Color Yellow Urine Appearance Clear Urine pH 5.0 Ur Specific [place] 1.034 Urine Protein Negative Urine Glucose (UA) Negative Urine Ketones Negative Urine Blood Negative Urine Nitrite Negative Urine Bilirubin Negative Urine Urobilinogen Negative Ur Leukocyte Esterase Negative RPR Titer 02/07/18 07:00 WBC RBC Hgb Hct MCV MCH MCHC RDW Plt Count MPV Sodium Potassium Chloride Carbon Dioxide Anion Gap BUN Creatinine Creat Clearance w eGFR Random Glucose Calcium Total Bilirubin AST ALT Alkaline Phosphatase Total Protein Albumin Urine Color Urine Appearance Urine pH Ur Specific [place] Urine Protein Urine Glucose (UA) Urine Ketones Urine Blood Urine Nitrite Urine Bilirubin Urine Urobilinogen Ur Leukocyte Esterase RPR Titer Nonreactive LABS NOTED. - Treatment Hospital Course: Detoxed Safely - Medication Discharge Medications: Ambulatory Orders NK [No Known Home Medication] 10/15/16 - Diagnosis (1) Anxious mood Current Visit: Yes Status: Acute (2) Back pain Current Visit: Yes Status: Acute Qualifiers: Back pain location: low back pain Chronicity: acute Back pain laterality : midline Sciatica presence: without sciatica Qualified Code(s): M54.5 - Low back pain (3) IVDU (intravenous drug user) Current Visit: Yes Status: Acute (4) Opioid dependence with withdrawal Current Visit: Yes Status: Acute (5) Sedative, hypnotic or anxiolytic dependence with withdrawal, unspecified Current Visit: Yes Status: Acute (6) Weight loss Current Visit: Yes Status: Acute (7) Nicotine dependence Current Visit: Yes Status: Chronic Qualifiers: Nicotine product type: cigarettes Substance use status: uncomplicated Qualified Code(s): F17.210 - Nicotine dependence, cigarettes, uncomplicated (8) Insomnia Current Visit: Yes Status: Acute Qualifiers: Insomnia type: unspecified Qualified Code(s): G47.00 - Insomnia, unspecified (9) Substance-induced sleep disorder Current Visit: Yes Status: Acute - AMA Did Patient Leave Against Medical Advice: Yes (PATIENT DID NOT WISH TO STAY TO COMPLETE DETOX REGIMEN.)
[2018-02-10] MEDS ORDERED: diazePAM 5 MG TABLET PO SCH (10:00)
[2018-02-10] MEDS ORDERED: METHADONE HCL 10 MG TABLET (FOR DETOX USE ONLY) PO SCH (10:00)
[2018-02-11] MEDS ORDERED: METHADONE HCL 5 MG TABLET (FOR DETOX USE ONLY) PO SCH (06:00)
== END 2018-02-08 10:00 | disposition left against medical advice (07) | DRG 894 ==
LOC: YASAS 16:03 → Y3N 21:40
PROVIDERS: ADMIT Internal Medicine; ATTEND Internal Medicine
PROC: HZ2ZZZZ Detoxification Services for Substance Abuse Treatment (ICD-10-PCS; principal; 2018-02-06)
DX: F11.23 Opioid dependence with withdrawal (principal); F13.230 Sedative, hypnotic or anxiolytic dependence with withdrawal, uncomplicated; F17.210 Nicotine dependence, cigarettes, uncomplicated; F41.9 Anxiety disorder, unspecified; G47.00 Insomnia, unspecified; M54.5 Low back pain; Z87.898 Personal history of other specified conditions
CPT/HCPCS: 36415; 80053; 81003; 85027; 86593; 93005; 93010

== ENCOUNTER 2018-08-19 13:01 | Inpatient (IN) | payer BC, OTHER ==
[2018-08-19 14:35] VITALS: BMI 25.8
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
[2018-08-19] MEDS ORDERED: guaiFENesin/D-METHORPHAN HB 10 ML UNIT-DOSE CUPS PO PRN (15:33)
[2018-08-19] MEDS ORDERED: MAGNESIUM CITRATE 300 ML BOTTLE PO PRN (15:33)
[2018-08-19] MEDS ORDERED: ACETAMINOPHEN 325 MG TABLET (FP) PO PRN (15:33)
[2018-08-19] MEDS ORDERED: P-EPHED 60MG/TRIPROLIDI 2.5MG TABLET PO PRN (15:33)
[2018-08-19] MEDS ORDERED: MENTHOL/PHENOL 1 EACH UD MM PRN (15:33)
[2018-08-19] MEDS ORDERED: LOPERAMIDE HCL 2 MG CAPSULE PO PRN (15:33)
[2018-08-19] MEDS ORDERED: hydrOXYzine PAMOATE 50 MG CAPSULE (FP) PO PRN (15:33)
[2018-08-19] MEDS ORDERED: IBUPROFEN 400 MG TABLET (FP) PO PRN (15:33)
[2018-08-19] MEDS ORDERED: MAG HYDROX/AL HYDROX/SIMETH 30 ML UNIT-DOSE CUP PO PRN (15:33)
[2018-08-19] MEDS ORDERED: MAGNESIUM HYDROX 2400MG/30ML ORAL SUSPENSION 30 ML CUP PO PRN (15:33)
[2018-08-19] MEDS ORDERED: CYCLOBENZAPRINE HCL 10 MG TABLET (FP) PO PRN (15:36)
[2018-08-19] MEDS ORDERED: METHADONE HCL 10 MG TABLET (FOR DETOX USE ONLY) PO ONE ×2 (17:15→23:00)
[2018-08-19] MEDS: diazePAM 5 MG TABLET PO PRN ×2 (17:50→22:31)
[2018-08-19] MEDS: NICOTINE 21 MG/24 HOURS TOPICAL PATCH TD SCH (17:51)
[2018-08-19] MEDS: NICOTINE POLACRILEX 2 MG GUM BC PRN (17:53)
[2018-08-19] MEDS ORDERED: MELATONIN 5 MG TABLETS PO PRN (22:00)
[2018-08-19] MEDS: cloNIDine HCL 0.1 MG TABLET PO SCH (22:29)
[2018-08-19] MEDS: THIAMINE HCL 100 MG TABLET (FP) PO SCH (22:29)
[2018-08-19 22:46] LABS: URINE APPEARANCE CLEAR; URINE BILIRUBIN NEGATIVE (<2.0 mg/dL); URINE COLOR YELLOW; URINE GLUCOSE (UA) NEGATIVE (NEGATIVE); URINE KETONE NEGATIVE (NEGATIVE); URINE LEUK ESTERASE NEGATIVE (NEGATIVE); URINE NITRITE NEGATIVE (NEGATIVE); URINE PROTEIN NEGATIVE (NEGATIVE)
--- NOTE | 2018-08-20 09:36 | PN ---
[facility] COWS - Scale Resting Pulse: 1= NE 81-100 Sweatin= Chills/Flushing Restless Observation: 1= Difficult to Sit Still Pupil Size: 1= Pupils >than Normal Bone or Joint Aches: 1= Mild Discomfort Runny Nose/ Eye Tearin= Nasal Congestion GI Upset > 30mins: 2= Nausea/Diarrhea Tremor Observation of Outstretched Hands: 1= Tremor [place], Not Seen Yawning Observation: 0= None Anxiety or Irritability: 1=Feels Anxious/Irritable Goose Flesh Skin: 3=Piloerection COWS Score: 13 [facility] Progress Note (SOAP) Subjective: body aches muscle cramp tremor anxiety sweat diarrhea Objective: 08/20/18 09:36 Vital Signs Temperature 98.2 F 08/20/18 09:28 Pulse Rate 75 08/20/18 09:28 Respiratory Rate 16 08/20/18 09:28 Blood Pressure 124/78 08/20/18 09:28 O2 Sat by Pulse Oximetry (%) Laboratory Last Values Urine Color Yellow 08/19/18 22:30 Urine Appearance Clear 08/19/18 22:30 Urine pH 6.0 (5.0-8.0) 08/19/18 22:30 Ur Specific [place] 1.032 (1.010-1.035) 08/19/18 22:30 Urine Protein Negative (NEGATIVE) 08/19/18 22:30 Urine Glucose (UA) Negative (NEGATIVE) 08/19/18 22:30 Urine Ketones Negative (NEGATIVE) 08/19/18 22:30 Urine Blood Negative (NEGATIVE) 08/19/18 22:30 Urine Nitrite Negative (NEGATIVE) 08/19/18 22:30 Urine Bilirubin Negative (<2.0 mg/dL) 08/19/18 22:30 Urine Urobilinogen 2.0 mg/dL (0.2-1.0) 08/19/18 22:30 Ur Leukocyte Esterase Negative (NEGATIVE) 08/19/18 22:30 lab noted Assessment: 08/20/18 09:36 withdrawal sx Plan: continue detox
[2018-08-20] MEDS ORDERED: METHADONE HCL 10 MG TABLET (FOR DETOX USE ONLY) PO ONE (10:00)
[2018-08-20] MEDS: cloNIDine HCL 0.1 MG TABLET PO SCH ×2 (10:17→23:30)
[2018-08-20] MEDS: PRENATAL VITAMINS W/ FOLIC ACID TABLET (FP) PO SCH (10:18)
[2018-08-20] MEDS: NICOTINE 21 MG/24 HOURS TOPICAL PATCH TD SCH (10:18)
[2018-08-20] MEDS: diazePAM 5 MG TABLET PO PRN ×2 (10:21→17:16)
[2018-08-20 10:36] LABS: HEMATOCRIT 39.9 % (35.4-49); HEMOGLOBIN 13.1 GM/dL (11.7-16.9); MCH 27.9 pg (25.7-33.7); MCHC 32.9 g/dl (32.0-35.9); MEAN CELL VOLUME 84.9 fl (80-96); MEAN PLT VOLUME 9.5 fl (7.5-11.1); PLATELET COUNT 176 K/MM3 (134-434); RDW 13.8 % (11.9-15.9); WHITE BLOOD COUNT 5.5 K/mm3 (4.0-10.0)
[2018-08-20 10:45] LABS: ALBUMIN 3.5 g/dl (3.4-5.0); ALK PHOS 101 U/L (45-117); ANION GAP 7 MMOL/L (8-16); BILIRUBIN,TOTAL 0.4 mg/dL (0.2-1); BLOOD UREA NITROGEN 17 mg/dL (7-18); CALCIUM 8.9 mg/dL (8.5-10.1); CHLORIDE 106 mmol/L (98-107); CO2 29 mmol/L (21-32); CREATININE 0.9 mg/dL (0.55-1.3); GLUCOSE,RANDOM 79 mg/dL (74-106); POTASSIUM 4.1 mmol/L (3.5-5.1); SGOT/AST 18 U/L (15-37); SGPT/ALT 21 U/L (13-61); SODIUM 142 mmol/L (136-145); TOT PROT 6.7 g/dl (6.4-8.2)
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
[2018-08-20] MEDS: NICOTINE POLACRILEX 2 MG GUM BC PRN (17:17)
[2018-08-20] MEDS ORDERED: MIRTAZAPINE 30 MG TABLET (FP) PO SCH (22:00)
[2018-08-20] MEDS: THIAMINE HCL 100 MG TABLET (FP) PO SCH (23:31)
[2018-08-21] MEDS: diazePAM 5 MG TABLET PO PRN ×2 (00:29→10:23)
[2018-08-21] MEDS: NICOTINE POLACRILEX 2 MG GUM BC PRN (08:46)
[2018-08-21 09:08] VITALS: BP 126/72; PULSE 107; TEMP 98.4
[2018-08-21] MEDS ORDERED: METHADONE HCL 5 MG TABLET (FOR DETOX USE ONLY) PO ONE (10:00)
[2018-08-21] MEDS: cloNIDine HCL 0.1 MG TABLET PO SCH (10:22)
[2018-08-21] MEDS: PRENATAL VITAMINS W/ FOLIC ACID TABLET (FP) PO SCH (10:22)
[2018-08-21] MEDS: NICOTINE 21 MG/24 HOURS TOPICAL PATCH TD SCH (10:23)
--- NOTE | 2018-08-21 10:41 | PN ---
[facility] Progress Note Note: pt states he has a court date today and has been unsuccessful with reaching his tax attorney. Pt states is he doesn't show up to court he will get a warrant for his arrest, he doesn't want to go to [facility]. Pt was asked if he didn't know this prior to coming to detox but he said he didn't think it though. Pt was told his detox isnt complete and he will need to sign out AMA. Pt understands.
--- NOTE | 2018-08-21 10:42 | DS ---
S Detox Discharge Summary Admission Date: 08/19/18 - History Present History: Opioid Dependence, Sedative Dependence - Physical Exam Results Vital Signs: Vital Signs Temperature 98.4 F 08/21/18 09:07 Pulse Rate 107 H 08/21/18 09:07 Respiratory Rate 18 08/21/18 09:07 Blood Pressure 126/72 08/21/18 09:07 O2 Sat by Pulse Oximetry (%) - Treatment Hospital Course: Discharged Condition Good - Medication Discharge Medications: Ambulatory Orders NK [No Known Home Medication] 10/15/16 - AMA Did Patient Leave Against Medical Advice: Yes (has a court date today)
[2018-08-22] MEDS ORDERED: METHADONE HCL 5 MG TABLET (FOR DETOX USE ONLY) PO ONE (10:00)
[2018-08-23] MEDS ORDERED: METHADONE HCL 10 MG TABLET (FOR DETOX USE ONLY) PO ONE (10:00)
[2018-08-24] MEDS ORDERED: METHADONE HCL 5 MG TABLET (FOR DETOX USE ONLY) PO ONE (06:00)
== END 2018-08-21 10:45 | disposition left against medical advice (07) | DRG 894 ==
LOC: YASAS 13:01 → Y6N 16:58
PROVIDERS: ADMIT Neuromusculoskeletal Medicine & OMM; ATTEND Neuromusculoskeletal Medicine & OMM
PROC: HZ2ZZZZ Detoxification Services for Substance Abuse Treatment (ICD-10-PCS; principal; 2018-08-19)
DX: F11.23 Opioid dependence with withdrawal (principal); F19.282 Other psychoactive substance dependence with psychoactive substance-induced sleep disorder; F13.230 Sedative, hypnotic or anxiolytic dependence with withdrawal, uncomplicated; F17.210 Nicotine dependence, cigarettes, uncomplicated; F41.9 Anxiety disorder, unspecified; F32.9 Major depressive disorder, single episode, unspecified; G47.00 Insomnia, unspecified; Z86.69 Personal history of other diseases of the nervous system and sense organs
CPT/HCPCS: 36415; 80053; 81003; 85027; 86593; J0735

== ENCOUNTER 2018-11-11 15:49 | Inpatient (IN) | payer BC, OTHER ==
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
[2018-11-11 18:21] VITALS: BMI 26.5
[2018-11-11] MEDS ORDERED: ACETAMINOPHEN 325 MG TABLET (FP) PO PRN (18:27)
[2018-11-11] MEDS ORDERED: guaiFENesin/D-METHORPHAN HB 10 ML UNIT-DOSE CUPS PO PRN (18:27)
[2018-11-11] MEDS ORDERED: LOPERAMIDE HCL 2 MG CAPSULE PO PRN (18:27)
[2018-11-11] MEDS ORDERED: NICOTINE POLACRILEX 2 MG GUM BC PRN (18:27)
[2018-11-11] MEDS ORDERED: MAG HYDROX/AL HYDROX/SIMETH 30 ML UNIT-DOSE CUP PO PRN (18:27)
[2018-11-11] MEDS ORDERED: IBUPROFEN 400 MG TABLET (FP) PO PRN (18:27)
[2018-11-11] MEDS ORDERED: MAGNESIUM CITRATE 300 ML BOTTLE PO PRN (18:27)
[2018-11-11] MEDS ORDERED: MAGNESIUM HYDROX 2400MG/30ML ORAL SUSPENSION 30 ML CUP PO PRN (18:27)
[2018-11-11] MEDS ORDERED: P-EPHED 60MG/TRIPROLIDI 2.5MG TABLET PO PRN (18:27)
[2018-11-11] MEDS ORDERED: diazePAM 5 MG TABLET PO ONE (18:27)
[2018-11-11] MEDS ORDERED: MENTHOL/PHENOL 1 EACH UD MM PRN (18:27)
[2018-11-11] MEDS ORDERED: METHADONE HCL 10 MG TABLET (FOR DETOX USE ONLY) PO ONE ×2 (18:27→23:00)
[2018-11-11] MEDS ORDERED: hydrOXYzine PAMOATE 25 MG CAPSULE (FP) PO PRN (18:27)
[2018-11-11] MEDS: CYCLOBENZAPRINE HCL 10 MG TABLET (FP) PO PRN ×2 (20:26→22:33)
[2018-11-11] MEDS: NICOTINE 21 MG/24 HOURS TOPICAL PATCH TD SCH (20:30)
[2018-11-11] MEDS: diazePAM 5 MG TABLET PO SCH (22:32)
[2018-11-11] MEDS: MELATONIN 5 MG TABLETS PO PRN (22:33)
[2018-11-11] MEDS: cloNIDine HCL 0.1 MG TABLET PO SCH (22:33)
[2018-11-11] MEDS: THIAMINE HCL 100 MG TABLET (FP) PO SCH (22:54)
[2018-11-12] MEDS: diazePAM 5 MG TABLET PO SCH ×3 (07:50→23:06)
[2018-11-12] MEDS ORDERED: METHADONE HCL 10 MG TABLET (FOR DETOX USE ONLY) PO SCH (10:00)
[2018-11-12 10:37] LABS: HEMATOCRIT 37.3 % (35.4-49); HEMOGLOBIN 13.2 GM/dL (11.7-16.9); MCH 31.4 pg (25.7-33.7); MCHC 35.3 g/dl (32.0-35.9); MEAN PLT VOLUME 9.8 fl (7.5-11.1); PLATELET COUNT 196 K/MM3 (134-434); RBC 4.19 M/mm3 (4.00-5.60); RDW 13.5 % (11.9-15.9); WHITE BLOOD COUNT 5.6 K/mm3 (4.0-10.0)
[2018-11-12] MEDS: cloNIDine HCL 0.1 MG TABLET PO SCH ×2 (10:40→23:06)
[2018-11-12] MEDS: PRENATAL VITAMINS W/ FOLIC ACID TABLET (FP) PO SCH (10:40)
[2018-11-12] MEDS: diazePAM 5 MG TABLET PO PRN ×2 (10:41→16:50)
[2018-11-12] MEDS: NICOTINE 21 MG/24 HOURS TOPICAL PATCH TD SCH (10:41)
[2018-11-12 11:12] LABS: ALBUMIN 3.7 g/dl (3.4-5.0); ALK PHOS 88 U/L (45-117); ANION GAP 6 MMOL/L (8-16); BILIRUBIN,TOTAL 0.9 mg/dL (0.2-1); BLOOD UREA NITROGEN 16 mg/dL (7-18); CALCIUM 9.3 mg/dL (8.5-10.1); CHLORIDE 105 mmol/L (98-107); CO2 31 mmol/L (21-32); GLUCOSE,RANDOM 88 mg/dL (74-106); POTASSIUM 4.4 mmol/L (3.5-5.1); SGOT/AST 12 U/L (15-37); SGPT/ALT 14 U/L (13-61); SODIUM 142 mmol/L (136-145); TOT PROT 6.6 g/dl (6.4-8.2)
--- NOTE | 2018-11-12 13:35 | PN ---
[facility] CIWA - CIWA Score Nausea/Vomitin-No Nausea/No Vomiting Muscle Tremors: 3 Anxiety: 3 Agitation: 3 Paroxysmal Sweats: 2 Orientation: 0-Oriented Tacttile Disturbances: 3-Moderate Itch/Numb/Burn Auditory Disturbances: 0-None Visual Disturbances: 0-None Headache: 0-None Present CIWA-Ar Total Score: 14 S COWS - Scale Resting Pulse: 1= [place] 81-100 Sweatin= Chills/Flushing Restless Observation: 1= Difficult to Sit Still Pupil Size: 0= Normal to Room Light Bone or Joint Aches: 1= Mild Discomfort Runny Nose/ Eye Tearin= Nasal Congestion GI Upset > 30mins: 0= None Tremor Observation of Outstretched Hands: 2= Slight Tremor Visible Yawning Observation: 0= None Anxiety or Irritability: 2=Irritable/Anxious Goose Flesh Skin: 0=Smooth Skin COWS Score: 9 S Progress Note (SOAP) Subjective: PATIENT C/O ANXIETY, RESTLESSNESS, SHAKES AND SWEATING. Objective: 11/12/18 13:33 Laboratory Tests 11/12/18 11/12/18 11/12/18 07:50 07:50 07:50 WBC 5.6 RBC 4.19 Hgb 13.2 Hct 37.3 MCV 89.0 MCH 31.4 D MCHC 35.3 RDW 13.5 Plt Count 196 MPV 9.8 Sodium 142 Potassium 4.4 Chloride 105 Carbon Dioxide 31 Anion Gap 6 L BUN 16 Creatinine 1.0 Creat Clearance w eGFR > 60 Random Glucose 88 Calcium 9.3 Total Bilirubin 0.9 AST 12 L ALT 14 Alkaline Phosphatase 88 Total Protein 6.6 Albumin 3.7 RPR Titer Nonreactive Vital Signs Temperature 98.4 F 11/12/18 09:39 Pulse Rate 87 11/12/18 09:39 Respiratory Rate 18 11/12/18 09:39 Blood Pressure 148/90 11/12/18 09:39 O2 Sat by Pulse Oximetry (%) PE: ALERT AND ORIENTED X 3 SKIN WARM AND MOIST EXT FULL ROM, +TREMORS AMB AD ARIELA ANXIOUS Assessment: 11/12/18 13:34 WITHDRAWAL SX Plan: CONTINUE DETOX ENCOURAGE ORAL FLUIDS CONTINUE TO MONITOR
[2018-11-12] MEDS: THIAMINE HCL 100 MG TABLET (FP) PO SCH (23:06)
[2018-11-13] MEDS ORDERED: METHADONE HCL 5 MG TABLET (FOR DETOX USE ONLY) PO SCH (10:00)
--- NOTE | 2018-11-13 10:32 | PN ---
S CIWA - CIWA Score Nausea/Vomitin-No Nausea/No Vomiting Muscle Tremors: 3 Anxiety: 3 Agitation: 4-Moderately Restless Paroxysmal Sweats: 3 Orientation: 0-Oriented Tacttile Disturbances: 0-None Auditory Disturbances: 0-None Visual Disturbances: 0-None Headache: 0-None Present CIWA-Ar Total Score: 13 BHS COWS - Scale Resting Pulse: 0= [place] 80 or Below Sweatin=Flushed/Facial Moisture Restless Observation: 1= Difficult to Sit Still Pupil Size: 0= Normal to Room Light Bone or Joint Aches: 1= Mild Discomfort Runny Nose/ Eye Tearin= Nasal Congestion GI Upset > 30mins: 1= Stomach Cramp Tremor Observation of Outstretched Hands: 2= Slight Tremor Visible Yawning Observation: 2= >3x During Session Anxiety or Irritability: 2=Irritable/Anxious Goose Flesh Skin: 0=Smooth Skin COWS Score: 12 S Progress Note (SOAP) Subjective: chills sweats stomach upset shakes yawning low appetite Objective: 11/13/18 10:31 Vital Signs Temperature 98.2 F 11/13/18 09:56 Pulse Rate 64 11/13/18 09:56 Respiratory Rate 17 11/13/18 09:56 Blood Pressure 127/83 11/13/18 09:56 O2 Sat by Pulse Oximetry (%) Laboratory Tests 11/12/18 11/12/18 11/12/18 07:50 07:50 07:50 WBC 5.6 RBC 4.19 Hgb 13.2 Hct 37.3 MCV 89.0 MCH 31.4 D MCHC 35.3 RDW 13.5 Plt Count 196 MPV 9.8 Sodium 142 Potassium 4.4 Chloride 105 Carbon Dioxide 31 Anion Gap 6 L BUN 16 Creatinine 1.0 Creat Clearance w eGFR > 60 Random Glucose 88 Calcium 9.3 Total Bilirubin 0.9 AST 12 L ALT 14 Alkaline Phosphatase 88 Total Protein 6.6 Albumin 3.7 RPR Titer Nonreactive aaox3 ambulating no acute distress Assessment: 11/13/18 10:31 withdrawal sx Plan: continue detox increase fluids
[2018-11-13] MEDS: diazePAM 5 MG TABLET PO SCH ×2 (11:05→22:17)
[2018-11-13] MEDS: PRENATAL VITAMINS W/ FOLIC ACID TABLET (FP) PO SCH (11:05)
[2018-11-13] MEDS: NICOTINE 21 MG/24 HOURS TOPICAL PATCH TD SCH (11:05)
[2018-11-13] MEDS: cloNIDine HCL 0.1 MG TABLET PO SCH ×2 (11:05→22:17)
[2018-11-13] MEDS: CYCLOBENZAPRINE HCL 10 MG TABLET (FP) PO PRN (22:17)
[2018-11-13] MEDS: MELATONIN 5 MG TABLETS PO PRN (22:17)
[2018-11-13] MEDS: THIAMINE HCL 100 MG TABLET (FP) PO SCH (22:18)
[2018-11-14 06:23] VITALS: TEMP 97.7
--- NOTE | 2018-11-14 09:39 | PN ---
[facility] Progress Note Note: pt states he has court and wants to leave now. Pt refused to complete his detox regimen and signed out AMA.
--- NOTE | 2018-11-14 09:41 | DS ---
[facility] Detox Discharge Summary Admission Date: 11/11/18 - History Present History: Opioid Dependence, Sedative Dependence - Physical Exam Results Vital Signs: Vital Signs Temperature 97.7 F 11/14/18 06:00 Pulse Rate 81 11/14/18 06:00 Respiratory Rate 18 11/14/18 06:00 Blood Pressure 98/78 11/14/18 06:00 O2 Sat by Pulse Oximetry (%) - Treatment Hospital Course: Responded well, Discharged Condition Good - Medication Discharge Medications: Ambulatory Orders NK [No Known Home Medication] 10/15/16 - Diagnosis (1) IVDU (intravenous drug user) Current Visit: Yes Status: Chronic (2) Anxiety and depression Current Visit: No Status: Acute (3) Insomnia Current Visit: Yes Status: Acute Qualifiers: Insomnia type: unspecified Qualified Code(s): G47.00 - Insomnia, unspecified (4) Opioid dependence with withdrawal Current Visit: Yes Status: Chronic (5) Sedative, hypnotic or anxiolytic dependence with withdrawal, unspecified Current Visit: Yes Status: Chronic (6) Substance-induced sleep disorder Current Visit: No Status: Acute (7) Nicotine dependence Current Visit: Yes Status: Chronic Qualifiers: Nicotine product type: cigarettes Substance use status: uncomplicated Qualified Code(s): F17.210 - Nicotine dependence, cigarettes, uncomplicated - AMA Did Patient Leave Against Medical Advice: Yes (going home; going to court)
[2018-11-14 10:04] VITALS: BP 147/76; PULSE 84
[2018-11-15] MEDS ORDERED: METHADONE HCL 10 MG TABLET (FOR DETOX USE ONLY) PO SCH (10:00)
[2018-11-15] MEDS ORDERED: diazePAM 5 MG TABLET PO SCH (10:00)
[2018-11-16] MEDS ORDERED: METHADONE HCL 5 MG TABLET (FOR DETOX USE ONLY) PO SCH (06:00)
== END 2018-11-14 09:28 | disposition left against medical advice (07) | DRG 894 ==
LOC: YASAS 15:49 → Y6N 18:45
PROVIDERS: ADMIT Surgery; ATTEND Surgery
PROC: HZ2ZZZZ Detoxification Services for Substance Abuse Treatment (ICD-10-PCS; principal; 2018-11-11)
DX: F11.23 Opioid dependence with withdrawal (principal); F19.282 Other psychoactive substance dependence with psychoactive substance-induced sleep disorder; F13.230 Sedative, hypnotic or anxiolytic dependence with withdrawal, uncomplicated; F17.210 Nicotine dependence, cigarettes, uncomplicated; F41.9 Anxiety disorder, unspecified; F32.9 Major depressive disorder, single episode, unspecified; G47.00 Insomnia, unspecified; Z86.69 Personal history of other diseases of the nervous system and sense organs
CPT/HCPCS: 36415; 80053; 85027; 86593; J0735

== ENCOUNTER 2019-02-04 08:21 | Inpatient (IN) | payer OTHER, BC | END 2019-02-08 10:17 | disposition home or self-care (01) | LOC: YASAS 08:21 → Y6N 02-05 20:15 ==

== ENCOUNTER 2019-03-21 15:25 | Inpatient (IN) | payer BC, OTHER ==
[2019-03-21 18:32] VITALS: BMI 25.2
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
[2019-03-21] MEDS ORDERED: MAGNESIUM CITRATE 300 ML BOTTLE PO PRN (20:18)
[2019-03-21] MEDS ORDERED: ACETAMINOPHEN 325 MG TABLET (FP) PO PRN ×2 (20:18)
[2019-03-21] MEDS ORDERED: MENTHOL/PHENOL 1 EACH UD MM PRN (20:18)
[2019-03-21] MEDS ORDERED: cloNIDine HCL 0.1 MG TABLET PO PRN (20:18)
[2019-03-21] MEDS ORDERED: BISMUTH SUBSALICYLATE 524 MG/30 ML UD PO PRN (20:18)
[2019-03-21] MEDS ORDERED: IBUPROFEN 400 MG TABLET (FP) PO PRN (20:18)
[2019-03-21] MEDS ORDERED: MAG HYDROX/AL HYDROX/SIMETH 30 ML UNIT-DOSE CUP PO PRN (20:18)
[2019-03-21] MEDS ORDERED: MAGNESIUM HYDROX 2400MG/30ML ORAL SUSPENSION 30 ML CUP PO PRN (20:18)
[2019-03-21] MEDS: THIAMINE HCL 100 MG TABLET (FP) PO SCH (21:38)
[2019-03-21] MEDS: diazePAM 5 MG TABLET PO SCH (21:38)
[2019-03-21] MEDS: METHOCARBAMOL 500 MG TABLET PO PRN (21:40)
[2019-03-21] MEDS: NICOTINE POLACRILEX 2 MG GUM BUC PRN (21:40)
[2019-03-21 22:28] LABS: EPI CELLS 1.1 /HPF (0-5/HPF); HYALINE CASTS 6 /lpf (0-8); PH,URINE 5.5 (5.0-8.0); URINE APPEARANCE TURBID; URINE BACTERIA 5.2 /hpf (NEGATIVE); URINE BILIRUBIN 1+ (NEGATIVE); URINE COLOR DK YELLOW; URINE GLUCOSE (UA) NEGATIVE (NEGATIVE); URINE KETONE TRACE (NEGATIVE); URINE LEUK ESTERASE NEGATIVE (NEGATIVE); URINE NITRITE NEGATIVE (NEGATIVE); URINE PROTEIN 1+ (NEGATIVE); URINE RBC 2 /hpf (0-4); URINE WBC 4 /hpf (0-5)
[2019-03-21 22:59] LABS: URINE CRYSTALS AMORPHOUS URATES /hpf
[2019-03-21] MEDS ORDERED: METHADONE HCL 10 MG TABLET (FOR DETOX USE ONLY) PO ONE (23:00)
[2019-03-22] MEDS: diazePAM 5 MG TABLET PO SCH ×3 (05:29→22:17)
[2019-03-22] MEDS ORDERED: METHADONE HCL 10 MG TABLET (FOR DETOX USE ONLY) PO ONE (10:00)
[2019-03-22] MEDS: NICOTINE 21 MG/24 HOURS TOPICAL PATCH TD SCH (10:30)
[2019-03-22] MEDS: PRENATAL VITAMINS W/ FOLIC ACID TABLET (FP) PO SCH (10:30)
[2019-03-22] MEDS: diazePAM 5 MG TABLET PO PRN ×2 (10:32→18:03)
[2019-03-22 11:02] LABS: ALBUMIN 3.4 g/dl (3.4-5.0); BILIRUBIN,TOTAL 0.7 mg/dL (0.2-1); BLOOD UREA NITROGEN 13.6 mg/dL (7-18); CREATININE 1.1 mg/dL (0.55-1.3); POTASSIUM 4.2 mmol/L (3.5-5.1); TOT PROT 6.1 g/dl (6.4-8.2)
[2019-03-22 11:15] LABS: HEMOGLOBIN 12.3 GM/dL (11.7-16.9); MCH 30.7 pg (25.7-33.7); MCHC 33.4 g/dl (32.0-35.9); MEAN CELL VOLUME 91.9 fl (80-96); MEAN PLT VOLUME 10.2 fl (7.5-11.1); PLATELET COUNT 164 K/MM3 (134-434); RBC 4.02 M/mm3 (4.00-5.60); RDW 13.4 % (11.9-15.9); WHITE BLOOD COUNT 5.4 K/mm3 (4.0-10.0)
--- NOTE | 2019-03-22 11:51 | PN ---
S CIWA - CIWA Score Nausea/Vomitin Muscle Tremors: 2 Anxiety: 2 Agitation: 2 Paroxysmal Sweats: 1-Minimal Palms Moist Orientation: 0-Oriented Tacttile Disturbances: 1-Very Mild Itch/Numbness Auditory Disturbances: 1-Very Mild Visual Disturbances: 0-None Headache: 2-Mild CIWA-Ar Total Score: 13 BHS COWS - Scale Resting Pulse: 0= [place] 80 or Below Sweatin= Chills/Flushing Restless Observation: 1= Difficult to Sit Still Pupil Size: 1= Pupils >than Normal Bone or Joint Aches: 2= Severe Diffuse Aches Runny Nose/ Eye Tearin= Nasal Congestion GI Upset > 30mins: 2= Nausea/Diarrhea Tremor Observation of Outstretched Hands: 2= Slight Tremor Visible Yawning Observation: 1= 1-2x During Session Anxiety or Irritability: 1=Feels Anxious/Irritable Goose Flesh Skin: 0=Smooth Skin COWS Score: 12 BHS Progress Note (SOAP) Subjective: alert,irritable,anxious,interrupted sleep,tremor,pain in the body and back, tremor Objective: 03/22/19 11:49 Vital Signs Temperature 98.2 F 03/22/19 09:20 Pulse Rate 71 03/22/19 09:20 Respiratory Rate 16 03/22/19 09:20 Blood Pressure 134/70 03/22/19 09:20 O2 Sat by Pulse Oximetry (%) 03/22/19 11:49 Laboratory Last Values WBC 5.4 K/mm3 (4.0-10.0) 03/22/19 07:30 RBC 4.02 M/mm3 (4.00-5.60) 03/22/19 07:30 Hgb 12.3 GM/dL (11.7-16.9) 03/22/19 07:30 Hct 37.0 % (35.4-49) 03/22/19 07:30 MCV 91.9 fl (80-96) 03/22/19 07:30 MCH 30.7 pg (25.7-33.7) 03/22/19 07:30 MCHC 33.4 g/dl (32.0-35.9) 03/22/19 07:30 RDW 13.4 % (11.9-15.9) 03/22/19 07:30 Plt Count 164 K/MM3 (134-434) D 03/22/19 07:30 MPV 10.2 fl (7.5-11.1) 03/22/19 07:30 Sodium 140 mmol/L (136-145) 03/22/19 07:30 Potassium 4.2 mmol/L (3.5-5.1) 03/22/19 07:30 Chloride 104 mmol/L (98-107) 03/22/19 07:30 Carbon Dioxide 32 mmol/L (21-32) 03/22/19 07:30 Anion Gap 4 MMOL/L (8-16) L 03/22/19 07:30 BUN 13.6 mg/dL (7-18) 03/22/19 07:30 Creatinine 1.1 mg/dL (0.55-1.3) 03/22/19 07:30 Est GFR (CKD-EPI)AfAm 107.56 03/22/19 07:30 Est GFR (CKD-EPI)NonAf 92.81 03/22/19 07:30 Random Glucose 87 mg/dL (74-106) 03/22/19 07:30 Calcium 9.0 mg/dL (8.5-10.1) 03/22/19 07:30 Total Bilirubin 0.7 mg/dL (0.2-1) 03/22/19 07:30 AST 12 U/L (15-37) L 03/22/19 07:30 ALT 15 U/L (13-61) 03/22/19 07:30 Alkaline Phosphatase 78 U/L (45-117) 03/22/19 07:30 Total Protein 6.1 g/dl (6.4-8.2) L 03/22/19 07:30 Albumin 3.4 g/dl (3.4-5.0) 03/22/19 07:30 Urine Color Dk yellow 03/21/19 21:05 Urine Appearance Turbid 03/21/19 21:05 Urine pH 5.5 (5.0-8.0) 03/21/19 21:05 Ur Specific [place] 1.039 (1.010-1.035) H 03/21/19 21:05 Urine Protein 1+ (NEGATIVE) H 03/21/19 21:05 Urine Glucose (UA) Negative (NEGATIVE) 03/21/19 21:05 Urine Ketones Trace (NEGATIVE) H 03/21/19 21:05 Urine Blood Negative (NEGATIVE) 03/21/19 21:05 Urine Nitrite Negative (NEGATIVE) 03/21/19 21:05 Urine Bilirubin 1+ (NEGATIVE) H 03/21/19 21:05 Urine Urobilinogen 1.0 mg/dL (0.2-1.0) 03/21/19 21:05 Ur Leukocyte Esterase Negative (NEGATIVE) 03/21/19 21:05 Urine WBC (Auto) 4 /hpf (0-5) 03/21/19 21:05 Urine RBC (Auto) 2 /hpf (0-4) 03/21/19 21:05 Urine Casts (Auto) 6 /lpf (0-8) 03/21/19 21:05 U Pathogenic Cast Auto No Result Required. 03/21/19 21:05 U Epithel Cells (Auto) 1.1 /HPF (0-5/HPF) 03/21/19 21:05 Urine Crystals (Auto) Amorphous urates /hpf 03/21/19 21:05 Urine Bacteria (Auto) 5.2 /hpf (NEGATIVE) 03/21/19 21:05 03/22/19 11:50 rpr pending Assessment: 03/22/19 11:50 withdrawal symptom Plan: continue detox
[2019-03-22] MEDS: METHOCARBAMOL 500 MG TABLET PO PRN ×2 (13:19→22:18)
--- NOTE | 2019-03-22 13:41 | EKG ---
Test Reason : Blood Pressure : / mmHG Vent. Rate : 060 BPM Atrial Rate : 060 BPM P-R Int : 134 ms QRS Dur : 088 ms QT Int : 426 ms P-R-T Axes : 066 073 036 degrees QTc Int : 426 ms NORMAL SINUS RHYTHM NORMAL ECG WHEN COMPARED WITH ECG OF 06-FEB-2018 22:29, NO SIGNIFICANT CHANGE WAS FOUND Confirmed by SABA MADERA MD ([id number]) on 03/22/2019 1:40:57 PM Referred By: MICHAEL BOOKER Confirmed By:SABA MADERA MD
[2019-03-22] MEDS: THIAMINE HCL 100 MG TABLET (FP) PO SCH (22:17)
[2019-03-22] MEDS: MELATONIN 5 MG TABLETS PO PRN (22:20)
[2019-03-22] MEDS: NICOTINE POLACRILEX 2 MG GUM BUC PRN (22:23)
[2019-03-23] MEDS ORDERED: METHADONE HCL 10 MG TABLET (FOR DETOX USE ONLY) PO ONE (10:00)
[2019-03-23] MEDS: NICOTINE 21 MG/24 HOURS TOPICAL PATCH TD SCH (10:18)
[2019-03-23] MEDS: diazePAM 5 MG TABLET PO SCH ×2 (10:19→22:19)
[2019-03-23] MEDS: PRENATAL VITAMINS W/ FOLIC ACID TABLET (FP) PO SCH (10:19)
--- NOTE | 2019-03-23 11:29 | PN ---
[facility] CIWA - CIWA Score Nausea/Vomitin-No Nausea/No Vomiting Muscle Tremors: 3 Anxiety: 3 Agitation: 3 Paroxysmal Sweats: 2 Orientation: 0-Oriented Tacttile Disturbances: 0-None Auditory Disturbances: 0-None Visual Disturbances: 0-None Headache: 0-None Present CIWA-Ar Total Score: 11 BHS COWS - Scale Resting Pulse: 0= [place] 80 or Below Sweatin= Chills/Flushing Restless Observation: 1= Difficult to Sit Still Pupil Size: 0= Normal to Room Light Bone or Joint Aches: 2= Severe Diffuse Aches Runny Nose/ Eye Tearin= Nasal Congestion GI Upset > 30mins: 1= Stomach Cramp Tremor Observation of Outstretched Hands: 0= None Yawning Observation: 2= >3x During Session Anxiety or Irritability: 1=Feels Anxious/Irritable Goose Flesh Skin: 0=Smooth Skin COWS Score: 9 [facility] Progress Note (SOAP) Subjective: sweats shakes interrupted sleep body aches irritable Objective: 03/23/19 11:28 Vital Signs Temperature 97.9 F 03/23/19 09:19 Pulse Rate 73 03/23/19 09:19 Respiratory Rate 16 03/23/19 09:19 Blood Pressure 146/79 03/23/19 09:19 O2 Sat by Pulse Oximetry (%) Laboratory Tests 03/21/19 03/22/19 03/22/19 21:05 07:30 07:30 WBC 5.4 RBC 4.02 Hgb 12.3 Hct 37.0 MCV 91.9 MCH 30.7 MCHC 33.4 RDW 13.4 Plt Count 164 D MPV 10.2 Sodium 140 Potassium 4.2 Chloride 104 Carbon Dioxide 32 Anion Gap 4 L BUN 13.6 Creatinine 1.1 Est GFR (CKD-EPI)AfAm 107.56 Est GFR (CKD-EPI)NonAf 92.81 Random Glucose 87 Calcium 9.0 Total Bilirubin 0.7 AST 12 L ALT 15 Alkaline Phosphatase 78 Total Protein 6.1 L Albumin 3.4 Urine Color Dk yellow Urine Appearance Turbid Urine pH 5.5 Ur Specific [place] 1.039 H Urine Protein 1+ H Urine Glucose (UA) Negative Urine Ketones Trace H Urine Blood Negative Urine Nitrite Negative Urine Bilirubin 1+ H Urine Urobilinogen 1.0 Ur Leukocyte Esterase Negative Urine WBC (Auto) 4 Urine RBC (Auto) 2 Urine Casts (Auto) 6 U Pathogenic Cast Auto No Result Required. U Epithel Cells (Auto) 1.1 Urine Crystals (Auto) Amorphous urates Urine Bacteria (Auto) 5.2 RPR Titer 03/22/19 07:30 WBC RBC Hgb Hct MCV MCH MCHC RDW Plt Count MPV Sodium Potassium Chloride Carbon Dioxide Anion Gap BUN Creatinine Est GFR (CKD-EPI)AfAm Est GFR (CKD-EPI)NonAf Random Glucose Calcium Total Bilirubin AST ALT Alkaline Phosphatase Total Protein Albumin Urine Color Urine Appearance Urine pH Ur Specific [place] Urine Protein Urine Glucose (UA) Urine Ketones Urine Blood Urine Nitrite Urine Bilirubin Urine Urobilinogen Ur Leukocyte Esterase Urine WBC (Auto) Urine RBC (Auto) Urine Casts (Auto) U Pathogenic Cast Auto U Epithel Cells (Auto) Urine Crystals (Auto) Urine Bacteria (Auto) RPR Titer Nonreactive labs noted repeat u/a aaox3 ambulating no acute distress Assessment: 03/23/19 11:29 withdrawal sx Plan: continue detox increase fluids repeat u/a
[2019-03-23] MEDS: diazePAM 5 MG TABLET PO PRN (14:25)
[2019-03-23] MEDS: NICOTINE POLACRILEX 2 MG GUM BUC PRN (17:23)
[2019-03-23] MEDS: THIAMINE HCL 100 MG TABLET (FP) PO SCH (22:16)
[2019-03-23] MEDS: METHOCARBAMOL 500 MG TABLET PO PRN (22:17)
[2019-03-24] MEDS ORDERED: diazePAM 5 MG TABLET PO SCH (06:00)
[2019-03-24] MEDS ORDERED: METHADONE HCL 10 MG TABLET (FOR DETOX USE ONLY) PO ONE (10:00)
[2019-03-24] MEDS: PRENATAL VITAMINS W/ FOLIC ACID TABLET (FP) PO SCH (10:05)
[2019-03-24] MEDS: NICOTINE 21 MG/24 HOURS TOPICAL PATCH TD SCH (10:05)
[2019-03-24] MEDS: diazePAM 5 MG TABLET PO PRN ×2 (10:10→16:10)
--- NOTE | 2019-03-24 10:33 | PN ---
[facility] CIWA - CIWA Score Nausea/Vomitin-No Nausea/No Vomiting Muscle Tremors: 2 Anxiety: 2 Agitation: 1-Slight > Activity Paroxysmal Sweats: 3 Orientation: 0-Oriented Tacttile Disturbances: 0-None Auditory Disturbances: 0-None Visual Disturbances: 0-None Headache: 2-Mild CIWA-Ar Total Score: 10 S COWS - Scale Resting Pulse: 0= [place] 80 or Below Sweatin= Beads of Sweat on Face Restless Observation: 1= Difficult to Sit Still Pupil Size: 0= Normal to Room Light Bone or Joint Aches: 1= Mild Discomfort Runny Nose/ Eye Tearin= None GI Upset > 30mins: 0= None Tremor Observation of Outstretched Hands: 2= Slight Tremor Visible Yawning Observation: 0= None Anxiety or Irritability: 2=Irritable/Anxious Goose Flesh Skin: 0=Smooth Skin COWS Score: 9 [facility] Progress Note (SOAP) Subjective: c/o anxiety, irritability, sweats, and headache. Objective: 03/24/19 10:31 Vital Signs 03/24/19 06:00 Temperature 97.9 F Pulse Rate 70 Respiratory 18 Rate Blood Pressure 126/71 Lab Results WBC 5.4 K/mm3 (4.0-10.0) 03/22/19 07:30 RBC 4.02 M/mm3 (4.00-5.60) 03/22/19 07:30 Hgb 12.3 GM/dL (11.7-16.9) 03/22/19 07:30 Hct 37.0 % (35.4-49) 03/22/19 07:30 MCV 91.9 fl (80-96) 03/22/19 07:30 MCHC 33.4 g/dl (32.0-35.9) 03/22/19 07:30 RDW 13.4 % (11.9-15.9) 03/22/19 07:30 Plt Count 164 K/MM3 (134-434) D 03/22/19 07:30 Sodium 140 mmol/L (136-145) 03/22/19 07:30 Potassium 4.2 mmol/L (3.5-5.1) 03/22/19 07:30 Chloride 104 mmol/L (98-107) 03/22/19 07:30 Carbon Dioxide 32 mmol/L (21-32) 03/22/19 07:30 Anion Gap 4 MMOL/L (8-16) L 03/22/19 07:30 BUN 13.6 mg/dL (7-18) 03/22/19 07:30 Creatinine 1.1 mg/dL (0.55-1.3) 03/22/19 07:30 Random Glucose 87 mg/dL (74-106) 03/22/19 07:30 Calcium 9.0 mg/dL (8.5-10.1) 03/22/19 07:30 Labs noted. Assessment: 03/24/19 10:32 AOX3, in no acute distress Full ROM, ambulating in the unit. withdrawal symptoms. Plan: continue detox.
[2019-03-24] MEDS: THIAMINE HCL 100 MG TABLET (FP) PO SCH (22:47)
[2019-03-25] MEDS ORDERED: METHADONE HCL 5 MG TABLET (FOR DETOX USE ONLY) PO ONE ×2 (06:00→10:30)
[2019-03-25] MEDS: PRENATAL VITAMINS W/ FOLIC ACID TABLET (FP) PO SCH (10:21)
[2019-03-25] MEDS: NICOTINE 21 MG/24 HOURS TOPICAL PATCH TD SCH (10:21)
--- NOTE | 2019-03-25 15:51 | PN ---
[facility] CIWA - CIWA Score Nausea/Vomitin-No Nausea/No Vomiting Muscle Tremors: None Anxiety: 1-Mildly Anxious Agitation: 2 Paroxysmal Sweats: 2 Orientation: 0-Oriented Tacttile Disturbances: 0-None Auditory Disturbances: 0-None Visual Disturbances: 0-None Headache: 0-None Present CIWA-Ar Total Score: 5 S COWS - Scale Resting Pulse: 1= [place] 81-100 Sweatin= Chills/Flushing Restless Observation: 0= Sits Still Pupil Size: 0= Normal to Room Light Bone or Joint Aches: 1= Mild Discomfort Runny Nose/ Eye Tearin= None GI Upset > 30mins: 0= None Tremor Observation of Outstretched Hands: 0= None Yawning Observation: 0= None Anxiety or Irritability: 2=Irritable/Anxious Goose Flesh Skin: 0=Smooth Skin COWS Score: 5 [facility] Progress Note (SOAP) Subjective: Feels ok, medication helps a lot. Refuse to elaborate. Patient stated he missed his 6am dose of methadone because he was sleeping and was too tired to get up. Patient requesting to receive his methadone 5mg dose which was due at 6am. Ordered as per patient's request. Objective: 03/25/19 15:49 Last Vital Signs Temp Pulse Resp BP Pulse Ox 98.2 F 89 18 135/75 03/25/19 14:24 03/25/19 14:24 03/25/19 14:24 03/25/19 14:24 Laboratory Tests 03/21/19 03/22/19 03/22/19 21:05 07:30 07:30 WBC 5.4 RBC 4.02 Hgb 12.3 Hct 37.0 MCV 91.9 MCH 30.7 MCHC 33.4 RDW 13.4 Plt Count 164 D MPV 10.2 Sodium 140 Potassium 4.2 Chloride 104 Carbon Dioxide 32 Anion Gap 4 L BUN 13.6 Creatinine 1.1 Est GFR (CKD-EPI)AfAm 107.56 Est GFR (CKD-EPI)NonAf 92.81 Random Glucose 87 Calcium 9.0 Total Bilirubin 0.7 AST 12 L ALT 15 Alkaline Phosphatase 78 Total Protein 6.1 L Albumin 3.4 Urine Color Dk yellow Urine Appearance Turbid Urine pH 5.5 Ur Specific [place] 1.039 H Urine Protein 1+ H Urine Glucose (UA) Negative Urine Ketones Trace H Urine Blood Negative Urine Nitrite Negative Urine Bilirubin 1+ H Urine Urobilinogen 1.0 Ur Leukocyte Esterase Negative Urine WBC (Auto) 4 Urine RBC (Auto) 2 Urine Casts (Auto) 6 U Pathogenic Cast Auto No Result Required. U Epithel Cells (Auto) 1.1 Urine Crystals (Auto) Amorphous urates Urine Bacteria (Auto) 5.2 RPR Titer 03/22/19 07:30 WBC RBC Hgb Hct MCV MCH MCHC RDW Plt Count MPV Sodium Potassium Chloride Carbon Dioxide Anion Gap BUN Creatinine Est GFR (CKD-EPI)AfAm Est GFR (CKD-EPI)NonAf Random Glucose Calcium Total Bilirubin AST ALT Alkaline Phosphatase Total Protein Albumin Urine Color Urine Appearance Urine pH Ur Specific [place] Urine Protein Urine Glucose (UA) Urine Ketones Urine Blood Urine Nitrite Urine Bilirubin Urine Urobilinogen Ur Leukocyte Esterase Urine WBC (Auto) Urine RBC (Auto) Urine Casts (Auto) U Pathogenic Cast Auto U Epithel Cells (Auto) Urine Crystals (Auto) Urine Bacteria (Auto) RPR Titer Nonreactive Labs reviewed: abnormal UA Assessment: 03/25/19 15:50 Withdrawal symptoms Noted with abnormal UA Plan: Continue detox Encouraged PO water intake Methadone 5mg PO x 1 dose (6am dose for today) given as per patient's request Abnormal UA: repeat UA already ordered Follow up with PCP for abnormal lab result
[2019-03-25] MEDS: MELATONIN 5 MG TABLETS PO PRN (22:47)
[2019-03-25] MEDS: THIAMINE HCL 100 MG TABLET (FP) PO SCH (22:47)
[2019-03-26 06:12] VITALS: BP 112/60; PULSE 79; TEMP 97.7
--- NOTE | 2019-03-26 09:05 | DS ---
[facility] Detox Discharge Summary Admission Date: 03/21/19 Discharge Date: 03/26/19 - History Present History: Alcohol Dependence, Opioid Dependence - Physical Exam Results Vital Signs: Vital Signs Temperature 97.7 F 03/26/19 06:11 Pulse Rate 79 03/26/19 06:11 Respiratory Rate 18 03/26/19 06:11 Blood Pressure 112/60 03/26/19 06:11 O2 Sat by Pulse Oximetry (%) - Treatment Hospital Course: Detox Protocol Followed, Detoxed Safely, Responded well, Discharged Condition Good, Rehab Referral Accepted - Diagnosis (1) Alcohol dependence with uncomplicated withdrawal Current Visit: Yes Status: Chronic (2) Nystagmus Current Visit: No Status: Chronic (3) Opioid dependence with withdrawal Current Visit: Yes Status: Chronic (4) IVDU (intravenous drug user) Current Visit: Yes Status: Chronic (5) Nicotine dependence Current Visit: Yes Status: Chronic Qualifiers: Nicotine product type: cigarettes Substance use status: uncomplicated Qualified Code(s): F17.210 - Nicotine dependence, cigarettes, uncomplicated (6) Anxiety and depression Current Visit: No Status: Acute (7) Insomnia Current Visit: No Status: Acute Qualifiers: Insomnia type: unspecified Qualified Code(s): G47.00 - Insomnia, unspecified (8) Substance-induced anxiety disorder Current Visit: No Status: Acute (9) Substance-induced sleep disorder Current Visit: No Status: Acute (10) Sedative, hypnotic or anxiolytic dependence with withdrawal, unspecified Current Visit: Yes Status: Chronic - AMA Did Patient Leave Against Medical Advice: No (referred to [facility])
[2019-03-26] MEDS: NICOTINE 21 MG/24 HOURS TOPICAL PATCH TD SCH (10:37)
[2019-03-26] MEDS: PRENATAL VITAMINS W/ FOLIC ACID TABLET (FP) PO SCH (10:37)
== END 2019-03-26 11:39 | disposition home or self-care (01) | DRG 897 ==
LOC: YASAS 15:25 → Y6N 19:53
PROVIDERS: ADMIT Surgery; ATTEND Surgery
PROC: HZ2ZZZZ Detoxification Services for Substance Abuse Treatment (ICD-10-PCS; principal; 2019-03-21)
DX: F11.23 Opioid dependence with withdrawal (principal); F19.280 Other psychoactive substance dependence with psychoactive substance-induced anxiety disorder; F19.282 Other psychoactive substance dependence with psychoactive substance-induced sleep disorder; F10.230 Alcohol dependence with withdrawal, uncomplicated; F13.230 Sedative, hypnotic or anxiolytic dependence with withdrawal, uncomplicated; F17.210 Nicotine dependence, cigarettes, uncomplicated; F32.9 Major depressive disorder, single episode, unspecified; F41.9 Anxiety disorder, unspecified; H55.00 Unspecified nystagmus; G47.00 Insomnia, unspecified; R82.90 Unspecified abnormal findings in urine; I49.9 Cardiac arrhythmia, unspecified; Z86.69 Personal history of other diseases of the nervous system and sense organs
CPT/HCPCS: 36415; 80053; 81003; 85027; 86593; 93005; 93010; J0735

== ENCOUNTER 2019-04-20 10:23 | Inpatient (IN) | payer OTHER, BC | END 2019-04-22 13:54 | disposition left against medical advice (07) | LOC: YASAS 10:23 → Y6N 12:33 ==

== ENCOUNTER 2019-09-01 12:02 | Inpatient (IN) | payer OTHER ==
[2019-09-01 14:25] VITALS: BMI 29.9
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
[2019-09-01] MEDS ORDERED: METHOCARBAMOL 500 MG TABLET PO PRN (15:27)
[2019-09-01] MEDS ORDERED: MAG HYDROX/AL HYDROX/SIMETH 30 ML UNIT-DOSE CUP PO PRN (15:27)
[2019-09-01] MEDS ORDERED: METHADONE HCL 10 MG TABLET (FOR DETOX USE ONLY) PO ONE (15:27)
[2019-09-01] MEDS ORDERED: ACETAMINOPHEN 325 MG TABLET (FP) PO PRN ×2 (15:27)
[2019-09-01] MEDS ORDERED: NICOTINE POLACRILEX 2 MG GUM BUC PRN (15:27)
[2019-09-01] MEDS ORDERED: MAGNESIUM CITRATE 300 ML BOTTLE PO PRN (15:27)
[2019-09-01] MEDS ORDERED: cloNIDine HCL 0.1 MG TABLET PO PRN (15:27)
[2019-09-01] MEDS ORDERED: MAGNESIUM HYDROX 2400MG/30ML ORAL SUSPENSION 30 ML CUP PO PRN (15:27)
[2019-09-01] MEDS ORDERED: IBUPROFEN 400 MG TABLET (FP) PO PRN (15:27)
[2019-09-01] MEDS ORDERED: LORazepam 1 MG TABLET PO PRN (15:27)
[2019-09-01] MEDS ORDERED: BISMUTH SUBSALICYLATE 524 MG/30 ML UD PO PRN (15:27)
[2019-09-01] MEDS ORDERED: MENTHOL/PHENOL 1 EACH UD MM PRN (15:27)
[2019-09-01] MEDS ORDERED: hydrOXYzine PAMOATE 25 MG CAPSULE (FP) PO PRN (15:27)
[2019-09-01] MEDS: LORazepam 2 MG TABLET PO SCH ×2 (17:45→22:36)
[2019-09-01] MEDS: NICOTINE 21 MG/24 HOURS TOPICAL PATCH TD SCH (17:46)
[2019-09-01] MEDS: THIAMINE HCL 100 MG TABLET (FP) PO SCH (22:36)
[2019-09-01] MEDS: MELATONIN 5 MG TABLETS PO PRN (22:37)
[2019-09-02] MEDS: LORazepam 2 MG TABLET PO SCH ×4 (08:00→22:34)
[2019-09-02] MEDS ORDERED: METHADONE HCL 10 MG TABLET (FOR DETOX USE ONLY) ONE (09:57)
[2019-09-02] MEDS ORDERED: METHADONE HCL 5 MG TABLET (FOR DETOX USE ONLY) ONE (09:57)
[2019-09-02] MEDS ORDERED: METHADONE (DETOX) 20 MG, METHADONE (DETOX) 5 MG PO ONE (10:00)
[2019-09-02] MEDS: PRENATAL VITAMINS W/ FOLIC ACID TABLET (FP) PO SCH (10:30)
[2019-09-02] MEDS: NICOTINE 21 MG/24 HOURS TOPICAL PATCH TD SCH (10:32)
--- NOTE | 2019-09-02 15:25 | PN ---
S CIWA - CIWA Score Nausea/Vomitin-Mild Nausea/No Vomiting Muscle Tremors: 3 Anxiety: 2 Agitation: 2 Paroxysmal Sweats: 2 Orientation: 0-Oriented Tacttile Disturbances: 1-Very Mild Itch/Numbness Auditory Disturbances: 0-None Visual Disturbances: 0-None Headache: 1-Very Mild CIWA-Ar Total Score: 12 [facility] COWS - Scale Resting Pulse: 1= [place] 81-100 Sweatin= Chills/Flushing Restless Observation: 0= Sits Still Pupil Size: 1= Pupils >than Normal Bone or Joint Aches: 1= Mild Discomfort Runny Nose/ Eye Tearin= None GI Upset > 30mins: 2= Nausea/Diarrhea Tremor Observation of Outstretched Hands: 2= Slight Tremor Visible Yawning Observation: 0= None Anxiety or Irritability: 1=Feels Anxious/Irritable Goose Flesh Skin: 3=Piloe[place] COWS Score: 12 S Progress Note (SOAP) Subjective: 24 years old male admitted on 09/01/19 for alcohol benzo opiate withdrawal sx management treated with ativan and methadone detox regimen ate breakfast and lunch no trouble chewing swallowing tolerated food and fluid well Objective: 09/02/19 15:32 Vital Signs Temperature 99.1 F 09/02/19 13:05 Pulse Rate 85 09/02/19 13:05 Respiratory Rate 18 09/02/19 13:05 Blood Pressure 102/52 L 09/02/19 13:05 O2 Sat by Pulse Oximetry (%) 09/02/19 15:33 lab see 04/21/19 report Assessment: 09/02/19 15:33 alcohol benzo opiate withdrawal sx Plan: continue ativan and methadone detox regimen
[2019-09-02] MEDS: MELATONIN 5 MG TABLETS PO PRN (22:34)
[2019-09-02] MEDS: THIAMINE HCL 100 MG TABLET (FP) PO SCH (22:34)
[2019-09-03] MEDS: LORazepam 1 MG TABLET PO SCH ×2 (07:06→10:18)
[2019-09-03 09:14] VITALS: BP 122/69; PULSE 91; TEMP 99.3
[2019-09-03] MEDS ORDERED: METHADONE HCL 10 MG TABLET (FOR DETOX USE ONLY) PO ONE (10:00)
[2019-09-03] MEDS: PRENATAL VITAMINS W/ FOLIC ACID TABLET (FP) PO SCH (10:17)
[2019-09-03] MEDS: NICOTINE 21 MG/24 HOURS TOPICAL PATCH TD SCH (10:17)
--- NOTE | 2019-09-03 13:18 | DS ---
[facility] Detox Discharge Summary Admission Date: 09/01/19 Discharge Date: 09/03/19 - History Present History: Alcohol Dependence, Opioid Dependence, Sedative Dependence Additional Comments: 24 years old male admitted on 09/01/19 for alcohol benzo opiate withdrawal sx management treated with ativan and methadone patient is alert oriented x 3 ambulating steady gait speech clearly coherently patient insists to leave the detox unit and "nothing to talk about" Pertinent Past History: multidisciplinary team meet with the patient discuss benefits of detox completion patient wants to leave the detox now - Physical Exam Results Vital Signs: Vital Signs Temperature 99.3 F 09/03/19 09:28 Pulse Rate 91 H 09/03/19 09:28 Respiratory Rate 18 09/03/19 09:28 Blood Pressure 122/69 09/03/19 09:28 O2 Sat by Pulse Oximetry (%) Pertinent Admission Physical Exam Findings: alcohol benzo opiate withdrawal sx lab 04/21/19 - Treatment Hospital Course: Detox Protocol Followed, Discharged Condition Good Patient has Accepted a Rehab Referral to: medication assisted treatment program - Medication Discharge Medications: Ambulatory Orders Naloxone HCl [Narcan] 4 mg NS ASDIR PRN #1 spray 09/02/19 - Diagnosis (1) Alcohol dependence with uncomplicated withdrawal Current Visit: Yes Status: Acute (2) Opioid dependence with withdrawal Current Visit: No Status: Acute (3) Sedative, hypnotic or anxiolytic dependence with withdrawal, unspecified Current Visit: Yes Status: Acute (4) Nicotine dependence Current Visit: Yes Status: Acute Qualifiers: Nicotine product type: cigarettes Substance use status: in withdrawal Qualified Code(s): F17.213 - Nicotine dependence, cigarettes, with withdrawal (5) Substance induced mood disorder Current Visit: Yes Status: Suspected - AMA Did Patient Leave Against Medical Advice: Yes
[2019-09-04] MEDS ORDERED: LORazepam 0.5 MG TABLET PO PRN
[2019-09-04] MEDS ORDERED: LORazepam 0.5 MG TABLET PO SCH (05:00)
[2019-09-04] MEDS ORDERED: METHADONE (DETOX) 10 MG, METHADONE (DETOX) 5 MG PO ONE (10:00)
[2019-09-05] MEDS ORDERED: LORazepam 0.5 MG TABLET PO ONE (05:00)
[2019-09-05] MEDS ORDERED: METHADONE HCL 10 MG TABLET (FOR DETOX USE ONLY) PO ONE (10:00)
[2019-09-06] MEDS ORDERED: METHADONE HCL 5 MG TABLET (FOR DETOX USE ONLY) PO ONE (06:00)
== END 2019-09-03 10:16 | disposition left against medical advice (07) | DRG 770 ==
LOC: YASAS 12:02 → Y3N 15:21
PROVIDERS: ADMIT Allergy & Immunology; ATTEND Allergy & Immunology
PROC: HZ2ZZZZ Detoxification Services for Substance Abuse Treatment (ICD-10-PCS; principal; 2019-09-01)
DX: F10.230 Alcohol dependence with withdrawal, uncomplicated (principal); F11.23 Opioid dependence with withdrawal; F13.230 Sedative, hypnotic or anxiolytic dependence with withdrawal, uncomplicated; F14.20 Cocaine dependence, uncomplicated; F12.20 Cannabis dependence, uncomplicated; F17.213 Nicotine dependence, cigarettes, with withdrawal; G47.00 Insomnia, unspecified

== ENCOUNTER 2020-03-30 16:35 | Inpatient (IN) | payer OTHER ==
--- NOTE | 2020-03-30 18:34 | BHS.RME ---
Substance Use & Tx History - Substance Use History Xanax Substance amount: 8 mgs to 10 mgs Frequency of use: Daily Substance route: Oral Date of Last Use: 03/30/20 Cocaine- Powder Substance amount: 1 gram Frequency of use: Once a month Substance route: Injection (ex: intravenous or skin popping) Date of Last Use: 03/26/20 Heroin Substance amount: 10 bags Frequency of use: Daily Substance route: Injection (ex: intravenous or skin popping) Date of Last Use: 03/30/20 - Last Treatment Date of last treatment: [facility] 03/07/20 to 03/11/20 Where was last treatment: Detox Physical/Psych/Mental Status - Behavior Eye Contact: Normal - Cooperativeness Cooperativeness: Cooperative - Thinking Thought Processes: Logical Thought content: Future oriented - Physical Health Problems Is patient presently having any pain?: No Does patient presently have any injuries (include location): No Does patient currently have a fever: No CIWA Nausea/Vomitin Muscle Tremors: 3 Anxiety: 3 Agitation: 3 Paroxysmal Sweats: No Perspiration Orientation: 0-Oriented Tacttile Disturbances: 1-Very Mild Itch/Numbness Auditory Disturbances: 0-None Visual Disturbances: 0-None Headache: 2-Mild CIWA-Ar Total Score: 14
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
[2020-03-30] MEDS ORDERED: MAGNESIUM HYDROX 2400MG/30ML ORAL SUSPENSION 30 ML CUP PO PRN (19:06)
[2020-03-30] MEDS ORDERED: MAG HYDROX/AL HYDROX/SIMETH 30 ML UNIT-DOSE CUP PO PRN (19:06)
[2020-03-30] MEDS ORDERED: METHOCARBAMOL 500 MG TABLET PO PRN (19:06)
[2020-03-30] MEDS ORDERED: MAGNESIUM CITRATE 300 ML BOTTLE PO PRN (19:06)
[2020-03-30] MEDS ORDERED: MENTHOL/PHENOL 1 EACH UD MM PRN (19:06)
[2020-03-30] MEDS ORDERED: ACETAMINOPHEN 325 MG TABLET (FP) PO PRN ×2 (19:06)
[2020-03-30] MEDS ORDERED: IBUPROFEN 400 MG TABLET (FP) PO PRN (19:06)
[2020-03-30] MEDS ORDERED: BISMUTH SUBSALICYLATE 524 MG/30 ML UD PO PRN (19:06)
[2020-03-30] MEDS ORDERED: LORazepam 1 MG TABLET PO PRN (19:06)
[2020-03-30 19:22] VITALS: BMI 26.5
[2020-03-30] MEDS ORDERED: ONDANSETRON *ODT* 4 MG TABLET SL ONE (19:45)
[2020-03-30] MEDS ORDERED: MELATONIN 5 MG TABLETS PO SCH (22:00)
[2020-03-30] MEDS: LORazepam 2 MG TABLET PO SCH (22:29)
[2020-03-30] MEDS: hydrOXYzine PAMOATE 25 MG CAPSULE (FP) PO SCH (22:29)
[2020-03-30] MEDS: THIAMINE HCL 100 MG TABLET (FP) PO SCH (22:29)
[2020-03-31] MEDS: hydrOXYzine PAMOATE 25 MG CAPSULE (FP) PO SCH ×5 (05:17→22:01)
[2020-03-31] MEDS: LORazepam 2 MG TABLET PO SCH ×4 (05:18→22:01)
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
[2020-03-31] MEDS: METHADONE HCL 40 MG DISPERSABLE TABLET PO SCH (10:25)
[2020-03-31] MEDS: NICOTINE 7 MG/24 HOURS TOPICAL PATCH TD SCH (10:25)
[2020-03-31] MEDS: PRENATAL VITAMINS W/ FOLIC ACID TABLET (FP) PO SCH (10:25)
[2020-03-31 11:22] LABS: HEMOGLOBIN 12.5 GM/dL (11.7-16.9); MCH 29.7 pg (25.7-33.7); MCHC 33.7 g/dl (32.0-35.9); MEAN CELL VOLUME 88.3 fl (80-96); MEAN PLT VOLUME 9.5 fl (7.5-11.1); PLATELET COUNT 185 K/MM3 (134-434); RBC 4.19 M/mm3 (4.00-5.60); RDW 13.5 % (11.9-15.9); WHITE BLOOD COUNT 4.2 K/mm3 (4.0-10.0)
[2020-03-31 11:33] LABS: ALBUMIN 3.4 g/dl (3.4-5.0); BILIRUBIN,TOTAL 0.8 mg/dL (0.2-1); BLOOD UREA NITROGEN 14.9 mg/dL (7-18); CALCIUM 8.9 mg/dL (8.5-10.1); TOT PROT 6.6 g/dl (6.4-8.2)
--- NOTE | 2020-03-31 13:10 | PN ---
S CIWA - CIWA Score Nausea/Vomitin Muscle Tremors: 2 Anxiety: 2 Agitation: 2 Paroxysmal Sweats: No Perspiration Orientation: 0-Oriented Tacttile Disturbances: 1-Very Mild Itch/Numbness Auditory Disturbances: 0-None Visual Disturbances: 1-Very Mild Sensitivity Headache: 2-Mild CIWA-Ar Total Score: 12 BHS Progress Note (SOAP) Subjective: alert,irritable,anxious,interrupted sleep ,pain in the body and back Objective: 03/31/20 13:07 Vital Signs Temperature 97.8 F 03/31/20 08:46 Pulse Rate 70 03/31/20 08:46 Respiratory Rate 16 03/31/20 08:46 Blood Pressure 140/93 03/31/20 08:46 O2 Sat by Pulse Oximetry (%) 98 03/31/20 05:13 Laboratory Last Values WBC 4.2 K/mm3 (4.0-10.0) 03/31/20 07:00 RBC 4.19 M/mm3 (4.00-5.60) 03/31/20 07:00 Hgb 12.5 GM/dL (11.7-16.9) 03/31/20 07:00 Hct 37.0 % (35.4-49) 03/31/20 07:00 MCV 88.3 fl (80-96) 03/31/20 07:00 MCH 29.7 pg (25.7-33.7) 03/31/20 07:00 MCHC 33.7 g/dl (32.0-35.9) 03/31/20 07:00 RDW 13.5 % (11.9-15.9) 03/31/20 07:00 Plt Count 185 K/MM3 (134-434) 03/31/20 07:00 MPV 9.5 fl (7.5-11.1) 03/31/20 07:00 Sodium 137 mmol/L (136-145) 03/31/20 07:00 Potassium 4.0 mmol/L (3.5-5.1) 03/31/20 07:00 Chloride 104 mmol/L (98-107) 03/31/20 07:00 Carbon Dioxide 28 mmol/L (21-32) 03/31/20 07:00 Anion Gap 6 MMOL/L (8-16) L 03/31/20 07:00 BUN 14.9 mg/dL (7-18) 03/31/20 07:00 Creatinine 1.0 mg/dL (0.55-1.3) 03/31/20 07:00 Est GFR (CKD-EPI)AfAm 119.86 03/31/20 07:00 Est GFR (CKD-EPI)NonAf 103.41 03/31/20 07:00 Random Glucose 83 mg/dL (74-106) 03/31/20 07:00 Calcium 8.9 mg/dL (8.5-10.1) 03/31/20 07:00 Total Bilirubin 0.8 mg/dL (0.2-1) 03/31/20 07:00 AST 27 U/L (15-37) 03/31/20 07:00 ALT 40 U/L (13-61) 03/31/20 07:00 Alkaline Phosphatase 110 U/L (45-117) 03/31/20 07:00 Total Protein 6.6 g/dl (6.4-8.2) 03/31/20 07:00 Albumin 3.4 g/dl (3.4-5.0) 03/31/20 07:00 Syphilis Serology Non-reactive (NONREACTIVE) 03/31/20 07:00 Assessment: 03/31/20 13:08 withdrawal symptom Plan: continue detox ativan regimen,continue methadone maintenance 40 mgs per day
[2020-03-31] MEDS: THIAMINE HCL 100 MG TABLET (FP) PO SCH (22:01)
[2020-03-31] MEDS: SUVOREXANT 10 MG TABLET PO PRN (22:04)
[2020-04-01] MEDS: METHADONE HCL 40 MG DISPERSABLE TABLET PO SCH (05:55)
[2020-04-01] MEDS: hydrOXYzine PAMOATE 25 MG CAPSULE (FP) PO SCH ×5 (05:55→22:05)
[2020-04-01] MEDS: LORazepam 1 MG TABLET PO SCH ×4 (05:56→22:05)
--- NOTE | 2020-04-01 10:06 | PN ---
S CIWA - CIWA Score Nausea/Vomitin-Mild Nausea/No Vomiting Muscle Tremors: 2 Anxiety: 2 Agitation: 2 Paroxysmal Sweats: No Perspiration Orientation: 0-Oriented Tacttile Disturbances: 1-Very Mild Itch/Numbness Auditory Disturbances: 0-None Visual Disturbances: 0-None Headache: 2-Mild CIWA-Ar Total Score: 10 S Progress Note (SOAP) Subjective: alert,irritable,anxious,interrupted sleep,tremor,pain in the body and back,[place],ambulation on the unit Objective: 04/01/20 10:04 Vital Signs Temperature 98.0 F 04/01/20 08:43 Pulse Rate 88 04/01/20 08:43 Respiratory Rate 18 04/01/20 08:43 Blood Pressure 146/83 04/01/20 08:43 O2 Sat by Pulse Oximetry (%) 97 04/01/20 06:07 04/01/20 10:04 Laboratory Last Values WBC 4.2 K/mm3 (4.0-10.0) 03/31/20 07:00 RBC 4.19 M/mm3 (4.00-5.60) 03/31/20 07:00 Hgb 12.5 GM/dL (11.7-16.9) 03/31/20 07:00 Hct 37.0 % (35.4-49) 03/31/20 07:00 MCV 88.3 fl (80-96) 03/31/20 07:00 MCH 29.7 pg (25.7-33.7) 03/31/20 07:00 MCHC 33.7 g/dl (32.0-35.9) 03/31/20 07:00 RDW 13.5 % (11.9-15.9) 03/31/20 07:00 Plt Count 185 K/MM3 (134-434) 03/31/20 07:00 MPV 9.5 fl (7.5-11.1) 03/31/20 07:00 Sodium 137 mmol/L (136-145) 03/31/20 07:00 Potassium 4.0 mmol/L (3.5-5.1) 03/31/20 07:00 Chloride 104 mmol/L (98-107) 03/31/20 07:00 Carbon Dioxide 28 mmol/L (21-32) 03/31/20 07:00 Anion Gap 6 MMOL/L (8-16) L 03/31/20 07:00 BUN 14.9 mg/dL (7-18) 03/31/20 07:00 Creatinine 1.0 mg/dL (0.55-1.3) 03/31/20 07:00 Est GFR (CKD-EPI)AfAm 119.86 03/31/20 07:00 Est GFR (CKD-EPI)NonAf 103.41 03/31/20 07:00 Random Glucose 83 mg/dL (74-106) 03/31/20 07:00 Calcium 8.9 mg/dL (8.5-10.1) 03/31/20 07:00 Total Bilirubin 0.8 mg/dL (0.2-1) 03/31/20 07:00 AST 27 U/L (15-37) 03/31/20 07:00 ALT 40 U/L (13-61) 03/31/20 07:00 Alkaline Phosphatase 110 U/L (45-117) 03/31/20 07:00 Total Protein 6.6 g/dl (6.4-8.2) 03/31/20 07:00 Albumin 3.4 g/dl (3.4-5.0) 03/31/20 07:00 Syphilis Serology Non-reactive (NONREACTIVE) 03/31/20 07:00 Assessment: 04/01/20 10:04 withdrawal symptom Plan: continue detox ativan regimen,continue methadone maintenance 40 mgs/day
[2020-04-01] MEDS: NICOTINE 7 MG/24 HOURS TOPICAL PATCH TD SCH (10:10)
[2020-04-01] MEDS: PRENATAL VITAMINS W/ FOLIC ACID TABLET (FP) PO SCH (10:10)
[2020-04-01] MEDS: THIAMINE HCL 100 MG TABLET (FP) PO SCH (22:05)
[2020-04-01] MEDS: SUVOREXANT 10 MG TABLET PO PRN (22:07)
[2020-04-02] MEDS ORDERED: LORazepam 0.5 MG TABLET PO PRN
[2020-04-02] MEDS: LORazepam 0.5 MG TABLET PO SCH ×4 (06:07→22:15)
[2020-04-02] MEDS: METHADONE HCL 40 MG DISPERSABLE TABLET PO SCH (06:07)
[2020-04-02] MEDS: hydrOXYzine PAMOATE 25 MG CAPSULE (FP) PO SCH ×5 (06:07→22:14)
[2020-04-02] MEDS: PRENATAL VITAMINS W/ FOLIC ACID TABLET (FP) PO SCH (10:41)
[2020-04-02] MEDS: NICOTINE POLACRILEX 2 MG GUM BUC PRN ×2 (10:41→17:23)
[2020-04-02] MEDS: NICOTINE 7 MG/24 HOURS TOPICAL PATCH TD SCH (10:41)
--- NOTE | 2020-04-02 10:45 | PN ---
[facility] CIWA - CIWA Score Nausea/Vomitin-Mild Nausea/No Vomiting Muscle Tremors: 2 Anxiety: 2 Agitation: 1-Slight > Activity Paroxysmal Sweats: No Perspiration Orientation: 0-Oriented Tacttile Disturbances: 0-None Auditory Disturbances: 0-None Visual Disturbances: 0-None Headache: 1-Very Mild CIWA-Ar Total Score: 7 S Progress Note (SOAP) Subjective: alert,irritable,interrupted sleep,pain in the body Objective: 04/02/20 10:45 Vital Signs Temperature 98.2 F 04/02/20 08:30 Pulse Rate 88 04/02/20 08:30 Respiratory Rate 20 04/02/20 08:30 Blood Pressure 127/73 04/02/20 08:30 O2 Sat by Pulse Oximetry (%) 97 04/02/20 05:04 Assessment: 04/02/20 10:45 withdrawal symptom Plan: continue detox ativan regimen,mmtp 40 mgs/day,discharge in am
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
[2020-04-02] MEDS: THIAMINE HCL 100 MG TABLET (FP) PO SCH (22:14)
[2020-04-02] MEDS: SUVOREXANT 10 MG TABLET PO PRN (22:14)
[2020-04-02 23:07] LABS: URINE APPEARANCE CLEAR; URINE BILIRUBIN NEGATIVE (NEGATIVE); URINE COLOR YELLOW; URINE GLUCOSE (UA) NEGATIVE (NEGATIVE); URINE KETONE NEGATIVE (NEGATIVE); URINE LEUK ESTERASE NEGATIVE (NEGATIVE); URINE NITRITE NEGATIVE (NEGATIVE); URINE PROTEIN TRACE (NEGATIVE); URINE UROBILINOGEN 0.2 mg/dL (0.2-1.0)
[2020-04-03] MEDS ORDERED: LORazepam 0.5 MG TABLET PO ONE (05:00)
[2020-04-03] MEDS: hydrOXYzine PAMOATE 25 MG CAPSULE (FP) PO SCH (05:07)
[2020-04-03] MEDS: METHADONE HCL 40 MG DISPERSABLE TABLET PO SCH (05:07)
[2020-04-03 05:41] VITALS: TEMP 97.8
[2020-04-03 06:10] VITALS: BP 119/60; PULSE 96
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
== END 2020-04-03 06:45 | disposition home or self-care (01) | DRG 773 ==
LOC: YASAS 16:35 → Y6N 19:32
PROVIDERS: ADMIT Allergy & Immunology; ATTEND Allergy & Immunology
PROC: HZ2ZZZZ Detoxification Services for Substance Abuse Treatment (ICD-10-PCS; principal; 2020-03-30)
DX: F10.230 Alcohol dependence with withdrawal, uncomplicated (principal); F11.23 Opioid dependence with withdrawal; F13.230 Sedative, hypnotic or anxiolytic dependence with withdrawal, uncomplicated; F14.20 Cocaine dependence, uncomplicated; F12.20 Cannabis dependence, uncomplicated; F17.210 Nicotine dependence, cigarettes, uncomplicated; F19.282 Other psychoactive substance dependence with psychoactive substance-induced sleep disorder; F19.24 Other psychoactive substance dependence with psychoactive substance-induced mood disorder; F41.8 Other specified anxiety disorders; F32.9 Major depressive disorder, single episode, unspecified; G40.509 Epileptic seizures related to external causes, not intractable, without status epilepticus; R94.5 Abnormal results of liver function studies; Z90.49 Acquired absence of other specified parts of digestive tract; Z98.890 Other specified postprocedural states; Z86.69 Personal history of other diseases of the nervous system and sense organs; Z87.828 Personal history of other (healed) physical injury and trauma
CPT/HCPCS: 36415; 80053; 81003; 85027; 86780; Q0162; U0003

== ENCOUNTER 2020-05-17 10:48 | Inpatient (IN) | payer OTHER ==
[2020-05-17 11:25] VITALS: BMI 25.5
--- NOTE | 2020-05-17 12:11 | BHS.RME ---
Substance Use & Tx History - Substance Use History Alcohol Substance amount: 12 beers Frequency of use: More than 3 times per week Substance route: Oral Date of Last Use: 05/09/20 Heroin Substance amount: 10 bags Frequency of use: Daily Substance route: Injection (ex: intravenous or skin popping) Date of Last Use: 05/17/20 Xanax Substance amount: 6mg Frequency of use: Daily Substance route: Oral Date of Last Use: 05/17/20 - Last Treatment Date of last treatment: 03/30/2020 Where was last treatment: Detox Physical/Psych/Mental Status - Behavior General Behavior: Increased activity (restlessness, agitation) Eye Contact: Normal Other Behaviors: Mannerisms - Cooperativeness Cooperativeness: Cooperative - Thinking Thought Processes: Tight, Logical, Goal Directed Thought content: Future oriented - Physical Health Problems Is patient presently having any pain?: No Does patient presently have any injuries (include location): No Does patient currently have a fever: No COWS - Scale Resting Pulse: 0= [place] 80 or Below Sweatin=Flushed/Facial Moisture Restless Observation: 1= Difficult to Sit Still Pupil Size: 1= Pupils >than Normal Bone or Joint Aches: 1= Mild Discomfort Runny Nose/ Eye Tearin= Nasal Congestion GI Upset > 30mins: 2= Nausea/Diarrhea Tremor Observation: 1= Tremor [place], Not Seen Yawning Observation: 1= 1-2x During Session Anxiety or Irritability: 1=Feels Anxious/Irritable Goose Flesh Skin: 3=Piloerection COWS Score: 14 CIWA Nausea/Vomitin-Mild Nausea/No Vomiting Muscle Tremors: 2 Anxiety: 2 Agitation: 2 Paroxysmal Sweats: 4-Forehead w/Sweat Beads Orientation: 0-Oriented Tacttile Disturbances: 1-Very Mild Itch/Numbness Auditory Disturbances: 1-Very Mild Visual Disturbances: 1-Very Mild Sensitivity Headache: 1-Very Mild CIWA-Ar Total Score: 15
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
[2020-05-17] MEDS ORDERED: MENTHOL/PHENOL 1 EACH UD MM PRN (12:32)
[2020-05-17] MEDS ORDERED: ONDANSETRON *ODT* 4 MG TABLET SL ONE (12:32)
[2020-05-17] MEDS ORDERED: MAGNESIUM CITRATE 300 ML BOTTLE PO PRN (12:32)
[2020-05-17] MEDS ORDERED: MAGNESIUM HYDROX 2400MG/30ML ORAL SUSPENSION 30 ML CUP PO PRN (12:32)
[2020-05-17] MEDS ORDERED: METHOCARBAMOL 500 MG TABLET PO PRN (12:32)
[2020-05-17] MEDS ORDERED: ACETAMINOPHEN 325 MG TABLET (FP) PO PRN ×2 (12:32)
[2020-05-17] MEDS ORDERED: BISMUTH SUBSALICYLATE 524 MG/30 ML UD PO PRN (12:32)
[2020-05-17] MEDS ORDERED: IBUPROFEN 400 MG TABLET (FP) PO PRN (12:32)
[2020-05-17] MEDS: METHADONE HCL 10 MG TABLET PO SCH (13:54)
[2020-05-17] MEDS: diazePAM 5 MG TABLET PO SCH ×2 (13:56→22:18)
[2020-05-17] MEDS: hydrOXYzine PAMOATE 25 MG CAPSULE (FP) PO SCH ×3 (14:01→22:18)
[2020-05-17] MEDS: diazePAM 5 MG TABLET PO PRN (17:25)
[2020-05-17] MEDS: THIAMINE HCL 100 MG TABLET (FP) PO SCH (22:18)
[2020-05-17] MEDS: MELATONIN 5 MG TABLETS PO SCH (22:18)
[2020-05-18] MEDS: hydrOXYzine PAMOATE 25 MG CAPSULE (FP) PO SCH (05:13)
[2020-05-18] MEDS: METHADONE HCL 10 MG TABLET PO SCH (05:13)
[2020-05-18] MEDS: diazePAM 5 MG TABLET PO SCH ×3 (05:13→21:18)
[2020-05-18] MEDS: diazePAM 5 MG TABLET PO PRN ×3 (09:21→20:29)
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
[2020-05-18] MEDS ORDERED: hydrOXYzine PAMOATE 50 MG CAPSULE (FP) PO PRN (09:56)
[2020-05-18] MEDS: NICOTINE 14 MG/24 HOURS TOPICAL PATCH TD SCH (10:07)
[2020-05-18] MEDS: PRENATAL VITAMINS W/ FOLIC ACID TABLET (FP) PO SCH (10:07)
[2020-05-18] MEDS: NICOTINE POLACRILEX 2 MG GUM BUC PRN (10:08)
[2020-05-18] MEDS: MAG HYDROX/AL HYDROX/SIMETH 30 ML UNIT-DOSE CUP PO PRN ×2 (10:08→17:43)
[2020-05-18 12:13] LABS: HEMATOCRIT 34.9 % (35.4-49); HEMOGLOBIN 11.7 GM/dL (11.7-16.9); MCH 29.8 pg (25.7-33.7); MCHC 33.6 g/dl (32.0-35.9); MEAN CELL VOLUME 88.6 fl (80-96); MEAN PLT VOLUME 9.4 fl (7.5-11.1); PLATELET COUNT 166 K/MM3 (134-434); RBC 3.94 M/mm3 (4.00-5.60); RDW 13.7 % (11.9-15.9); WHITE BLOOD COUNT 4.4 K/mm3 (4.0-10.0)
[2020-05-18 12:27] LABS: ALBUMIN 3.3 g/dl (3.4-5.0); BILIRUBIN,TOTAL 0.3 mg/dL (0.2-1); BLOOD UREA NITROGEN 13.5 mg/dL (7-18); CALCIUM 8.7 mg/dL (8.5-10.1); CREATININE 0.9 mg/dL (0.55-1.3); POTASSIUM 4.1 mmol/L (3.5-5.1); TOT PROT 6.2 g/dl (6.4-8.2)
--- NOTE | 2020-05-18 13:33 | PN ---
[facility] CIWA - CIWA Score Nausea/Vomitin-Mild Nausea/No Vomiting Muscle Tremors: 3 Anxiety: 3 Agitation: 2 Paroxysmal Sweats: 2 Orientation: 0-Oriented Tacttile Disturbances: 0-None Auditory Disturbances: 1-Very Mild Visual Disturbances: 0-None Headache: 0-None Present CIWA-Ar Total Score: 12 S Progress Note (SOAP) Subjective: Complaints of nausea, anxiety, agitation, tremors and sweats. Objective: 05/18/20 13:32 Vital Signs 05/18/20 08:43 Temperature 97.8 F Pulse Rate 72 Respiratory 18 Rate Blood Pressure 140/82 Laboratory Last Values WBC 4.4 K/mm3 (4.0-10.0) 05/18/20 07:15 RBC 3.94 M/mm3 (4.00-5.60) L 05/18/20 07:15 Hgb 11.7 GM/dL (11.7-16.9) 05/18/20 07:15 Hct 34.9 % (35.4-49) L 05/18/20 07:15 MCV 88.6 fl (80-96) 05/18/20 07:15 MCH 29.8 pg (25.7-33.7) 05/18/20 07:15 MCHC 33.6 g/dl (32.0-35.9) 05/18/20 07:15 RDW 13.7 % (11.9-15.9) 05/18/20 07:15 Plt Count 166 K/MM3 (134-434) 05/18/20 07:15 MPV 9.4 fl (7.5-11.1) 05/18/20 07:15 Sodium 141 mmol/L (136-145) 05/18/20 07:15 Potassium 4.1 mmol/L (3.5-5.1) 05/18/20 07:15 Chloride 107 mmol/L (98-107) 05/18/20 07:15 Carbon Dioxide 29 mmol/L (21-32) 05/18/20 07:15 Anion Gap 5 MMOL/L (8-16) L 05/18/20 07:15 BUN 13.5 mg/dL (7-18) 05/18/20 07:15 Creatinine 0.9 mg/dL (0.55-1.3) 05/18/20 07:15 Est GFR (CKD-EPI)AfAm 136.14 05/18/20 07:15 Est GFR (CKD-EPI)NonAf 117.46 05/18/20 07:15 Random Glucose 78 mg/dL (74-106) 05/18/20 07:15 Calcium 8.7 mg/dL (8.5-10.1) 05/18/20 07:15 Total Bilirubin 0.3 mg/dL (0.2-1) 05/18/20 07:15 AST 39 U/L (15-37) H 05/18/20 07:15 ALT 68 U/L (13-61) H 05/18/20 07:15 Alkaline Phosphatase 101 U/L (45-117) 05/18/20 07:15 Total Protein 6.2 g/dl (6.4-8.2) L 05/18/20 07:15 Albumin 3.3 g/dl (3.4-5.0) L 05/18/20 07:15 Syphilis Serology Non-reactive (NONREACTIVE) 05/18/20 07:15 HIV Ag/Ab Combo Qual Negative (NEGATIVE) 05/18/20 07:15 Labs noted. Assessment: 05/18/20 13:33 Patient was seen and examined at bedside. Alert and oriented x 3, in no acute respiratory distress. Full ROM, ambulatory without assistance. Withdrawal symptoms. Plan: Continue detox protocol.
[2020-05-18] MEDS: THIAMINE HCL 100 MG TABLET (FP) PO SCH (21:18)
[2020-05-18] MEDS: SUVOREXANT 10 MG TABLET PO PRN (21:19)
[2020-05-18] MEDS: MELATONIN 5 MG TABLETS PO SCH (22:16)
[2020-05-19] MEDS: diazePAM 5 MG TABLET PO PRN ×4 (02:31→21:06)
[2020-05-19] MEDS: METHADONE HCL 10 MG TABLET PO SCH (06:57)
[2020-05-19] MEDS: diazePAM 5 MG TABLET PO SCH ×2 (06:57→17:16)
[2020-05-19] MEDS: PRENATAL VITAMINS W/ FOLIC ACID TABLET (FP) PO SCH (09:07)
[2020-05-19] MEDS: NICOTINE 14 MG/24 HOURS TOPICAL PATCH TD SCH (09:09)
[2020-05-19] MEDS: NICOTINE POLACRILEX 2 MG GUM BUC PRN ×2 (09:09→18:10)
--- NOTE | 2020-05-19 10:16 | PN ---
[facility] CIWA - CIWA Score Nausea/Vomitin-No Nausea/No Vomiting Muscle Tremors: 2 Anxiety: 2 Agitation: 2 Paroxysmal Sweats: No Perspiration Orientation: 0-Oriented Tacttile Disturbances: 0-None Auditory Disturbances: 0-None Visual Disturbances: 0-None Headache: 1-Very Mild CIWA-Ar Total Score: 7 S Progress Note (SOAP) Subjective: alert,irritable,anxious,interrupted sleep,aching pain Objective: 05/19/20 10:15 Vital Signs Temperature 98.2 F 05/19/20 08:32 Pulse Rate 87 05/19/20 08:32 Respiratory Rate 18 05/19/20 08:32 Blood Pressure 121/86 05/19/20 08:32 O2 Sat by Pulse Oximetry (%) 96 05/18/20 13:09 05/19/20 10:15 Laboratory Last Values WBC 4.4 K/mm3 (4.0-10.0) 05/18/20 07:15 RBC 3.94 M/mm3 (4.00-5.60) L 05/18/20 07:15 Hgb 11.7 GM/dL (11.7-16.9) 05/18/20 07:15 Hct 34.9 % (35.4-49) L 05/18/20 07:15 MCV 88.6 fl (80-96) 05/18/20 07:15 MCH 29.8 pg (25.7-33.7) 05/18/20 07:15 MCHC 33.6 g/dl (32.0-35.9) 05/18/20 07:15 RDW 13.7 % (11.9-15.9) 05/18/20 07:15 Plt Count 166 K/MM3 (134-434) 05/18/20 07:15 MPV 9.4 fl (7.5-11.1) 05/18/20 07:15 Sodium 141 mmol/L (136-145) 05/18/20 07:15 Potassium 4.1 mmol/L (3.5-5.1) 05/18/20 07:15 Chloride 107 mmol/L (98-107) 05/18/20 07:15 Carbon Dioxide 29 mmol/L (21-32) 05/18/20 07:15 Anion Gap 5 MMOL/L (8-16) L 05/18/20 07:15 BUN 13.5 mg/dL (7-18) 05/18/20 07:15 Creatinine 0.9 mg/dL (0.55-1.3) 05/18/20 07:15 Est GFR (CKD-EPI)AfAm 136.14 05/18/20 07:15 Est GFR (CKD-EPI)NonAf 117.46 05/18/20 07:15 Random Glucose 78 mg/dL (74-106) 05/18/20 07:15 Calcium 8.7 mg/dL (8.5-10.1) 05/18/20 07:15 Total Bilirubin 0.3 mg/dL (0.2-1) 05/18/20 07:15 AST 39 U/L (15-37) H 05/18/20 07:15 ALT 68 U/L (13-61) H 05/18/20 07:15 Alkaline Phosphatase 101 U/L (45-117) 05/18/20 07:15 Total Protein 6.2 g/dl (6.4-8.2) L 05/18/20 07:15 Albumin 3.3 g/dl (3.4-5.0) L 05/18/20 07:15 Syphilis Serology Non-reactive (NONREACTIVE) 05/18/20 07:15 COVID-19 (GUIDO) Not detected (Not Detected) 05/17/20 13:25 HIV Ag/Ab Combo Qual Negative (NEGATIVE) 05/18/20 07:15 Assessment: 05/19/20 10:15 withdrawal symptom Plan: continue detox valium regimen,discharge in am
[2020-05-19] MEDS: THIAMINE HCL 100 MG TABLET (FP) PO SCH (21:06)
[2020-05-19] MEDS: SUVOREXANT 10 MG TABLET PO PRN (21:06)
[2020-05-19] MEDS: MELATONIN 5 MG TABLETS PO SCH (22:36)
[2020-05-19] MEDS: MAG HYDROX/AL HYDROX/SIMETH 30 ML UNIT-DOSE CUP PO PRN (22:56)
[2020-05-20] MEDS ORDERED: diazePAM 5 MG TABLET PO ONE (06:00)
[2020-05-20] MEDS: METHADONE HCL 10 MG TABLET PO SCH (06:09)
[2020-05-20 08:07] VITALS: BP 142/78; PULSE 86; TEMP 97.5
--- NOTE | 2020-05-20 10:36 | PN ---
[facility] CIWA - CIWA Score Nausea/Vomitin-No Nausea/No Vomiting Muscle Tremors: None Anxiety: 1-Mildly Anxious Agitation: 0-Normal Activity Paroxysmal Sweats: No Perspiration Orientation: 0-Oriented Tacttile Disturbances: 0-None Auditory Disturbances: 0-None Visual Disturbances: 0-None Headache: 0-None Present CIWA-Ar Total Score: 1 S Progress Note (SOAP) Subjective: alert,no complaint Objective: 05/20/20 10:34 Vital Signs Temperature 97.5 F L 05/20/20 05:10 Pulse Rate 86 05/20/20 05:10 Respiratory Rate 18 05/20/20 05:10 Blood Pressure 142/78 05/20/20 05:10 O2 Sat by Pulse Oximetry (%) 97 05/20/20 05:10 Assessment: 05/20/20 10:34 detox completed,no withdrawal symptom Plan: stable for discharge today,follow up with after care program as arrangement [facility]
--- NOTE | 2020-05-20 10:37 | DS ---
[facility] Detox Discharge Summary Admission Date: 05/17/20 Discharge Date: 05/20/20 - History Present History: Alcohol Dependence, Cannabis Dependence, Cocaine Dependence, Sedative Dependence, MMTP Additional Comments: alert,oriented x 3 ambulation on the unit lung clear on auscultation bilaterally abdomen soft,no distension,no pain no swelling of the legs detox completed,no withdrawal symptom stable for discharge today, follow up with after care program as arrangement [facility] total time of discharge 35 minutes Pertinent Past History: insomnia - Physical Exam Results Vital Signs: Vital Signs Temperature 97.5 F L 05/20/20 05:10 Pulse Rate 86 05/20/20 05:10 Respiratory Rate 18 05/20/20 05:10 Blood Pressure 142/78 05/20/20 05:10 O2 Sat by Pulse Oximetry (%) 97 05/20/20 05:10 Pertinent Admission Physical Exam Findings: withdrawal signs and symptom Laboratory Last Values WBC 4.4 K/mm3 (4.0-10.0) 05/18/20 07:15 RBC 3.94 M/mm3 (4.00-5.60) L 05/18/20 07:15 Hgb 11.7 GM/dL (11.7-16.9) 05/18/20 07:15 Hct 34.9 % (35.4-49) L 05/18/20 07:15 MCV 88.6 fl (80-96) 05/18/20 07:15 MCH 29.8 pg (25.7-33.7) 05/18/20 07:15 MCHC 33.6 g/dl (32.0-35.9) 05/18/20 07:15 RDW 13.7 % (11.9-15.9) 05/18/20 07:15 Plt Count 166 K/MM3 (134-434) 05/18/20 07:15 MPV 9.4 fl (7.5-11.1) 05/18/20 07:15 Sodium 141 mmol/L (136-145) 05/18/20 07:15 Potassium 4.1 mmol/L (3.5-5.1) 05/18/20 07:15 Chloride 107 mmol/L (98-107) 05/18/20 07:15 Carbon Dioxide 29 mmol/L (21-32) 05/18/20 07:15 Anion Gap 5 MMOL/L (8-16) L 05/18/20 07:15 BUN 13.5 mg/dL (7-18) 05/18/20 07:15 Creatinine 0.9 mg/dL (0.55-1.3) 05/18/20 07:15 Est GFR (CKD-EPI)AfAm 136.14 05/18/20 07:15 Est GFR (CKD-EPI)NonAf 117.46 05/18/20 07:15 Random Glucose 78 mg/dL (74-106) 05/18/20 07:15 Calcium 8.7 mg/dL (8.5-10.1) 05/18/20 07:15 Total Bilirubin 0.3 mg/dL (0.2-1) 05/18/20 07:15 AST 39 U/L (15-37) H 05/18/20 07:15 ALT 68 U/L (13-61) H 05/18/20 07:15 Alkaline Phosphatase 101 U/L (45-117) 05/18/20 07:15 Total Protein 6.2 g/dl (6.4-8.2) L 05/18/20 07:15 Albumin 3.3 g/dl (3.4-5.0) L 05/18/20 07:15 Syphilis Serology Non-reactive (NONREACTIVE) 05/18/20 07:15 COVID-19 (GUIDO) Not detected (Not Detected) 05/17/20 13:25 HIV Ag/Ab Combo Qual Negative (NEGATIVE) 05/18/20 07:15 Vital Signs Temperature 97.5 F L 05/20/20 05:10 Pulse Rate 86 05/20/20 05:10 Respiratory Rate 18 05/20/20 05:10 Blood Pressure 142/78 05/20/20 05:10 O2 Sat by Pulse Oximetry (%) 97 05/20/20 05:10 - Treatment Hospital Course: Detox Protocol Followed, Detoxed Safely, Responded well, Discharged Condition Good, Rehab Referral Accepted Patient has Accepted a Rehab Referral to: [facility] rehab - Medication Discharge Medications: Ambulatory Orders Methadone [Dolophine -] 50 mg PO DAILY 03/07/20 - Diagnosis (1) Alcohol dependence with uncomplicated withdrawal Status: Acute (2) Cannabis use disorder, mild, abuse Status: Acute (3) Cocaine dependence Status: Acute (4) Heroin abuse Status: Acute (5) Sedative, hypnotic or anxiolytic dependence with withdrawal, unspecified Status: Acute (6) Insomnia Status: Chronic Qualifiers: (7) Opioid dependence on agonist therapy Status: Chronic (8) Insomnia Status: Acute - AMA Did Patient Leave Against Medical Advice: No
== END 2020-05-20 09:19 | disposition home or self-care (01) | DRG 773 ==
LOC: YASAS 10:48 → Y6N 13:20
PROVIDERS: ADMIT Allergy & Immunology; ATTEND Allergy & Immunology
PROC: HZ2ZZZZ Detoxification Services for Substance Abuse Treatment (ICD-10-PCS; principal; 2020-05-18)
DX: F10.230 Alcohol dependence with withdrawal, uncomplicated (principal); F11.20 Opioid dependence, uncomplicated; F13.230 Sedative, hypnotic or anxiolytic dependence with withdrawal, uncomplicated; F14.20 Cocaine dependence, uncomplicated; F12.10 Cannabis abuse, uncomplicated; F17.210 Nicotine dependence, cigarettes, uncomplicated; F19.282 Other psychoactive substance dependence with psychoactive substance-induced sleep disorder; F19.280 Other psychoactive substance dependence with psychoactive substance-induced anxiety disorder; F41.9 Anxiety disorder, unspecified; F32.9 Major depressive disorder, single episode, unspecified; G47.00 Insomnia, unspecified; Z86.69 Personal history of other diseases of the nervous system and sense organs; Z98.890 Other specified postprocedural states; Z56.0 Unemployment, unspecified; Z59.0 Homelessness
CPT/HCPCS: 36415; 80053; 85027; 86780; 87389; U0003

== ENCOUNTER 2020-06-19 10:07 | Inpatient (IN) | payer OTHER ==
--- NOTE | 2020-06-19 10:22 | BHS.RME ---
Substance Use & Tx History - Substance Use History Xanax Substance amount: 6 mg Frequency of use: Daily Substance route: Oral Date of Last Use: 06/19/20 (First use age 14y) Nicotine Substance amount: one pack Frequency of use: Daily Substance route: Smoking Date of Last Use: 06/19/20 - Last Treatment Date of last treatment: Detox April 2020, completed, referred to [facility] Physical/Psych/Mental Status - Behavior General Behavior: Increased activity (restlessness, agitation) Eye Contact: Normal - Cooperativeness Cooperativeness: Cooperative - Thinking Thought Processes: Tight Thought content: Future oriented - Physical Health Problems Is patient presently having any pain?: No Does patient presently have any injuries (include location): No Does patient currently have a fever: No CIWA Nausea/Vomitin-Mild Nausea/No Vomiting Muscle Tremors: None Anxiety: 3 Agitation: 3 Paroxysmal Sweats: No Perspiration Orientation: 1-Uncertain about Date Tacttile Disturbances: 0-None Auditory Disturbances: 1-Very Mild Visual Disturbances: 1-Very Mild Sensitivity Headache: 2-Mild CIWA-Ar Total Score: 12
[2020-06-19 10:42] VITALS: BMI 27.8
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
[2020-06-19] MEDS ORDERED: NICOTINE POLACRILEX 2 MG GUM BUC PRN (10:57)
[2020-06-19] MEDS ORDERED: ACETAMINOPHEN 325 MG TABLET (FP) PO PRN ×2 (10:57)
[2020-06-19] MEDS ORDERED: MAGNESIUM CITRATE 300 ML BOTTLE PO PRN (10:57)
[2020-06-19] MEDS ORDERED: BISMUTH SUBSALICYLATE 524 MG/30 ML UD PO PRN (10:57)
[2020-06-19] MEDS ORDERED: MAGNESIUM HYDROX 2400MG/30ML ORAL SUSPENSION 30 ML CUP PO PRN (10:57)
[2020-06-19] MEDS ORDERED: MENTHOL/PHENOL 1 EACH UD MM PRN (10:57)
[2020-06-19] MEDS ORDERED: LORazepam 1 MG TABLET PO PRN (10:57)
[2020-06-19] MEDS ORDERED: METHOCARBAMOL 500 MG TABLET PO PRN (10:57)
[2020-06-19] MEDS ORDERED: ONDANSETRON *ODT* 4 MG TABLET SL PRN (10:57)
[2020-06-19] MEDS ORDERED: IBUPROFEN 400 MG TABLET (FP) PO PRN (10:57)
[2020-06-19] MEDS ORDERED: MAG HYDROX/AL HYDROX/SIMETH 30 ML UNIT-DOSE CUP PO PRN (10:57)
--- OUTSIDE RECORDS SUMMARY | 2020-06-19 11:11 | XMS ---
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 capsule 300 mg 300 mg Oral Q6H PRN aluminum-magnesium hydroxide (MAALOX) oral suspension 30 mL 30 mL Oral Q3HPRN dicyclomine (BENTYL) capsule 20 mg 20 mg Oral Q6H PRN tuber culin injection 5 Units 5 Units IntraDERMal ONCE diazePAM (VALIUM) tablet 10 mg 10 mg Oral QID PRNComponents: Yes No N/A Comment:Takes meds as prescribed:[] [] [ ]Side effects reported/observed: [] [] []Changes in Medical Status: [] [] []VIT AL SIGNSPatient Vitals for the past 12 hrs: Temp Pulse Resp BP [id number]/16/20 1732 97. 9 F (36.6 C) 85 18 128/70 -06/16/20 1710 98.1 F (36.7 C) 86 18 137/85 98 %06/16 1316 99.8 F (37.7 C) (!) 111 18 (!) 108/58 97 %LABSLab Results 24Hours Proce dure Component Value Units Date/Time DRUG SCREEN, URINE [[id number]] (Abnormal) Co llected: 06/16/20 1328 Order Status: Completed Specimen: Urine, random Updat ed: 06/16/20 1430 PCP(PHENCYCLIDINE) Negative BENZODIAZEPINES Positive COCA INE Negative AMPHETAMINES Negative METHADONE Positive THC (TH-CANNABINOL) Negative OPIATES Positive BARBITURATES Negative METABOLIC PANEL, COMPREHENSIVE [[id number]] (Abnormal) Collected: 06/16/201340 Order Status: Completed Sp ecimen: Serum from Plasma Updated: 06/16/20 1426 Sodium 142 mmol/L Potassium 4.3 m mol/L Chloride 110 mmol/L CO2 28 mmol/L Anion gap 9 mmol/L Glucose 136 mg/dL B UN 19 mg/dL Creatinine 1.08 mg/dL GFR est AA >60 ml/min/1.73m2 GFR est non-AA >60 ml/min/1.73m2 Calcium 9.3 mg/dL Bilirubin, total 0.7 mg/dL ALT (SGPT) 80 U/L AST (SGOT) 38 U/L Alk. phosphatase 104 U/L Protein, total 6.9 g/dL Albumin 3.7 g/d L Globulin 3.2 g/dL A-G Ratio 1.1 ETHYL ALCOHOL [[id number]] Collected: 06/16/20 1340 Order Status: Completed Specimen: Blood from Plasma Updated: 06/16/20 142 6 ETHYL ALCOHOL, SERUM <3.0 MG/DL PROTHROMBIN TIME [[id number]] Collected: 09/21/20 1340 Order Status: Completed Specimen: Blood from Plasma Updated: 0 06/16/20 1424 Prothrombin time 10.7 sec INR 1.0 PTT [[id number]] Collected: 06/16/201339 Order Status: Completed Specimen: Blood from Plasma Updated: 06/16/20 142 4 aPTT 26.2 SEC URINALYSIS W/ RFLX MICROSCOPIC [[id number]] Collected: 05/28 10/15 1328 Order Status: Completed Specimen: Urine Updated: 06/16/20 1408 Color YEL LOW Appearance CLEAR Specific gravity 1.019 pH (UA) 5.5 Protein Negative mg/dL Gl ucose Negative mg/dL Ketone Negative mg/dL Bilirubin Negative Blood Negative Urob ilinogen 0.2 EU/dL Nitrites Negative Leukocyte Esterase Negative CBC WITH AUT OMATED DIFF [[id number]] (Abnormal) Collected: 06/16/201339 Order Status: Completed Specimen: Whole Blood Updated: 06/16/20 1405 WBC 7.5 K/uL RBC 4.12 M/ uL HGB 12.3 g/dL HCT 36.3 % MCV 88.1 FL MCH 29.9 PG MCHC 33.9 g/dL RDW 12.9 % PLATELET 173 K/uL MPV 11.3 FL NRBC 0.0 PER 100 WBC ABSOLUTE NRBC 0.00 K/uL NEUTRO PHILS 82 % LYMPHOCYTES 13 % MONOCYTES 4 % EOSINOPHILS 0 % BASOPHILS 0 % IMMATURE GRANULOCYTES 0 % ABS. NEUTROPHILS 6.1 K/UL ABS. LYMPHOCYTES 1.0 K/UL ABS. MONOCYTE S 0.3 K/UL ABS. EOSINOPHILS 0.0 K/UL ABS. BASOPHILS 0.0 K/UL ABS. IMM. GRANS. 0.0 K/UL DF AUTOMATEDSTD TESTING:Pt is requesting STD/HIV Testing: [x] YES [] NOHIV RISK ASSESSMENT (per patient)HIV STATUS: [] Unknown [x]Negative [] PositiveDate of last test: 2019Have you put yourself at risk? noRULES AND REGULATIONS OF UNIT: Patient was given the rules and regulations ofunit. Rules were then reviewed by staff and "Patient Welcoming" individual.Patient agrees to comply with unit rules & procedures. Patient made aware ofconsequences if rules are v iolated. Name Value Range Interpretation Code Description Data Kelly rce(s) Supporting Document(s ) ID Date Data Source 36N*ENCOUNTER 06/16/2020 05:31:51 PM EDT BSS - [facility] [id number] [facility] [address] [place] [address] [phone]/ Sabra Navarro (Male) [id number] ES I 3 ED Dispo:ADMIT Chief Complaint: Addiction problem Diagnosis: Drug addiction (HCC) [] Polysubstance abuse (HCC) [] Cu rrent Providers: Attending: Lindsey Lomax S Consulting Provider: Justin Null Primary Nurse: Geovanny Garcia, [facility]: [id number] [phone] Print Group [id number] - [facility] Med[facility] MrnMRN: [id number] Print Group [id number] - [facility] Age Sex 1995 AGE 25 SEX Male Primary Care Provider: RaulAllergies: (No Known Allergies)Date Reviewed: 06/16/2020Reviewed by: Sudha Felix RN - Review CompleteED Provider Notes: All notesHNO ID: [id number]: Tamica Lomax, MDService: -Author Type: PhysicianFiled: 06/16/20 1655Note Text:H PI1:19 PM: Sabra Navarro is a 25 y.o. male with medical history of benzoaddiction since age 14. Patient tejada s been on Xanax daily and last dose wasthis morning wants to detox from Xanax. Patient tried detox 1-/2 m onthsago but relapsed.History reviewed. No pertinent past medical history.History reviewed. No pertinent s urgical history.History reviewed. No pertinent family history.Social HistorySocioeconomic History Marital st atus: SINGLE Spouse name: Not on file Number of children: Not on file Years of education: Not on file H ighest education level: Not on fileOccupational History Not on fileSocial Needs Financial resource str ain: Not on file Food insecurity Worry: Not on file Inability: Not on file Transportation needs Medic al: Not on file Non-medical: Not on fileTobacco Use Smoking status: Current Every Day Smoker Smokel ess tobacco: Never UsedSubstance and Sexual Activity Alcohol use: Yes Drug use: Yes Types: Heroin Comme nt: xanax Sexual activity: Yes Partners: FemaleLifestyle Physical activity Days per week: Not on file Mi nutes per session: Not on file Stress: Not on fileRelationships Social connections Talks on phone: Not on file Gets together: Not on file Attends mandaeism service: Not on file Active member of club or organi zation: Not on file Attends meetings of clubs or organizations: Not on file Relationship status: Not on maryuri e Intimate partner violence Fear of current or ex partner: Not on file Emotionally abused: Not on file P hysically abused: Not on file Forced sexual activity: Not on fileOther Topics Concern Not on fileSoc ial History Narrative Not on fileALLERGIES: Patient has no known allergies.Review of SystemsConstitutiona l: Negative for chills and fever.HENT: Negative for rhinorrhea and sore throat.Eyes: Negative for photophob ia and visual disturbance.Respiratory: Negative for cough and shortness of breath.Cardiovascular: Nega tive for chest pain and leg swelling.Gastrointestinal: Negative for abdominal pain, diarrhea, nausea andvomi ting.Genitourinary: Negative for dysuria and hematuria.Musculoskeletal: Negative for back pain and myalgias.Skin: Negative for color change and pallor.Neurological: Negative for seizur es and syncope.Vitals: 06/16/20 1316BP: (!) 108/58Pulse: (!) 111Resp: 18Temp: 99.8 F (37.7 C)SpO2: 97%Weight: 83.9 kg (185 lb)Height: 5' 10" (1.778 m)Physical ExamVitals signs and nursing note review ed.Constitutional: Appearance: Normal appearance.HENT: Head: Normocephalic. Nose: Nose normal. Mo uth/Throat: Mouth: Mucous membranes are moist.Eyes: Extraocular Movements: Extraocular movements intact. Conjunctiva/sclera: Conjunctivae normal. Pupils: Pupils are equal, round, and reactive to light.Neck : Musculoskeletal: Normal range of motion.Cardiovascular: Rate and Rhythm: Normal rate. Pulses: Margarita l pulses.Pulmonary: Effort: Pulmonary effort is normal. Breath sounds: Normal breath sounds.Abdominal: General: Abdomen is flat. Bowel sounds are normal. Tenderness: There is no abdominal tenderness.Musculo skeletal: Normal range of motion.Skin: General: Skin is warm. Capillary Refill: Capillary refill takes less than 2 seconds.Neurological: General: No focal deficit present. Mental Status: He is alert an d oriented to person, place, and time.Mental status is at baseline.Psychiatric: Mood and Affect: Mood normal. Behavior: Behavior normal.MDMProceduresIMonie Robin S, MD, reviewed the patient's past histo ry, allergies andhome medications as documented in the nursing chart.Labs:Recent Results (from the past 12 hour(s))DRUG SCREEN, URINE Collection Time: 06/16/20 1:28 PMResult Value Ref Range PCP(PHENCYCLIDI NE) Negative NEG BENZODIAZEPINES Positive (A) NEG COCAINE Negative NEG AMPHETAMINES Negative NEG METHADONE Positive (A) NEG THC (TH-CANNABINOL) Negative NEG OPIATES Positive (A) NEG BARBITURATES Negative NEGURINALY SIS W/ RFLX MICROSCOPIC Collection Time: 06/16/20 1:28 PMResult Value Ref Range Color YELLOW YEL Appeara nce CLEAR CLEAR Specific gravity 1.019 1.003 - 1.030 pH (UA) 5.5 4.6 - 8.0 Protein Negative NEG mg/dL Glucose Negative NEG mg/dL Ketone Negative NEG mg/dL Bilirubin Negative NEG Blood Negative NEG Urobilinogen 0.2 0.2 - 1.0 EU/dL Nitrites Negative NEG Leukocyte Esterase Negative NEGCBC WITH AUTOMATED DIFF Collection Time: 1:40 PMResult Value Ref Range WBC 7.5 4.8 - 10.6 K/uL RBC 4.12 (L) 4.70 - 6.00 M/uL HGB 12.3 (L) 1 4.0 - 18.0 g/dL HCT 36.3 (L) 42.0 - 52.0 % MCV 88.1 81.0 - 94.0 FL MCH 29.9 27.0 - 35.0 PG MCHC 33.9 30.7 - 37.3 g/dL RDW 12.9 11.5 - 14.0 % PLATELET 173 130 - 400 K/uL MPV 11.3 9.2 - 11.8 FL NRBC 0.0 0 PER 100 WB C ABSOLUTE NRBC 0.00 0.0 - 0.01 K/uL NEUTROPHILS 82 (H) 48.0 - 72.0 % LYMPHOCYTES 13 (L) 18.0 - 40.0 % MONOC YTES 4 2.0 - 12.0 % EOSINOPHILS 0 0.0 - 7.0 % BASOPHILS 0 0.0 - 3.0 % IMMATURE GRANULOCYTES 0 0 - 0.5 % ABS. NEUTROPHILS 6.1 2.3 - 7.6 K/UL ABS. LYMPHOCYTES 1.0 0.9 - 4.2 K/UL ABS. MONOCYTES 0.3 0.1 - 1.7 K/UL ABS. E OSINOPHILS 0.0 0.0 - 1.0 K/UL ABS. BASOPHILS 0.0 0.0 - 0.4 K/UL ABS. IMM. GRANS. 0.0 0.0 - 0.17 K/UL DF AUTOM ATEDMETABOLIC PANEL, COMPREHENSIVE Collection Time: 06/16/20 1:40 PMResult Value Ref Range Sodium 142 136 - 145 mmol/L Potassium 4.3 3.5 - 5.1 mmol/L Chloride 110 (H) 98 - 107 mmol/L CO2 28 21 - 32 mmol/L Anion g ap 9 (L) 10 - 20 mmol/L Glucose 136 (H) 74 - 106 mg/dL BUN 19 (H) 7 - 18 mg/dL Creatinine 1.08 0.70 - 1.30 m g/dL GFR est AA >60 >60 ml/min/1.73m2 GFR est non-AA >60 >60 ml/min/1.73m2 Calcium 9.3 8.5 - 10.1 mg/ dL Bilirubin, total 0.7 0.2 - 1.0 mg/dL ALT (SGPT) 80 (H) 13 - 61 U/L AST (SGOT) 38 (H) 15 - 37 U/L Alk. p hosphatase 104 45 - 117 U/L Protein, total 6.9 6.4 - 8.2 g/dL Albumin 3.7 3.5 - 4.7 g/dL Globulin 3.2 1.7 - 4.7 g/dL A-G Ratio 1.1 0.7 - 2.8PROTHROMBIN TIME + INR Collection Time: 06/16/20 1:40 PMResult Value Ref Range Prothrombin time 10.7 9.4 - 11.1 sec INR 1.0 0.8 - 1.2PTT Collection Time: 06/16/20 1:40 P MResult Value Ref Range aPTT 26.2 21.0 - 28.0 SECETHYL ALCOHOL Collection Time: 06/16/20 1:40 PMResult Value Ref Range ETHYL ALCOHOL, SERUM <3.0 <10 MG/DLRadiology:CXR Results (Last 48 hours) NoneCT Results (Last 48 hours) NoneEcho Results (Last 48 hours) None<EMERGENCY DEPARTMENT CASE SUMMARY>Impression/Diffe rential Diagnosis: Benzodiazepine dependence,polysubstance abuseED Course:25 y.o. male presented to the ED history of benzodiazepine dependence willbe admitted for detox.Final Impression/Diagnosis:Encounter Diagnoses ICD-10-CM ICD-9-CM1. Drug addiction ([facility]) F19.20 304.902. Polysubstance abuse ([facility]) F19.10 305.90 Patient condition at time of disposition: stableI have reviewed the following home medications:Prior to Admi ssion medicationsMedication Sig Start Date End Date Taking? Authorizing Providermethadone HCl (METHA DONE PO) Take by mouth. Does not know dosing YesPiotr Aquino MDKim, Tamica Robertson MDED Orders ME THADONE PO [#[id number]] Priority: Routine Class: Historical Med MULTIVITAMIN TAB [#[id number]] Priority: None Class: Normal NICOTINE 2 1 MG/24 HR DAILY PATCH [#[id number]] Priority: None Class: Normal TRAZODONE 50 MG TAB [#[id number]] Priority: None Class: Normal MAGNESIUM HYDROXIDE 400 MG/5 ML ORAL* [#[id number]] Priority: None Class: Normal CYCLOBENZAPRINE 10 MG TAB [# [id number]] Priority: None Class: Normal CLONIDINE 0.1 MG TAB [#[id number]] Priority: None Class: Normal HYDROXYZINE 25 MG TAB [#[id number]] Priority: None Class: Normal TRIMETHOBENZAMIDE 300 MG CAP [#[id number]] Priority: None Class: N ormal TRIMETHOBENZAMIDE 100 MG/ML IM [#[id number]] Priority: None Class: Normal ALUMINUM-MAGNESIUM HYDROXIDE 200 MG-* [#[id number]] Priority: None Class: Normal DICYCLOMIN E 10 MG CAP [#[id number]] Priority: None Class: Normal TUBERCULIN PPD 5 UNIT/0 .1 ML INTRADE* [#[id number]] Priority: None Class: Normal DIAZEPAM 5 MG TAB [#[id number]] Priority: None Class: Normal CON53 IP CONSULT TO PSYCHIATRY [#[id number]] Priority: STAT Class: Hospital Performed Standing Order Information Remaining Occurrences:0 /1 Interval:ONE TIME Last released:06/16/2020 Released orders: TueJun 16, 2020 1:15 PM by: TAMICA LOMAX Reason for Consult: -> detox Did you call or speak to the consulting provider? -> No Consult To -> Meggan Schedule When? -> TODAY CON53 IP CONSULT TO PSYCHIATRY [#[id number]] Priority: STAT Class: Hospital Performed Comment:SANDRO Broderick aware of consult @[id number] -[facility] Reason for Consult: -> detox Did you call or speak to the consulting provider? -> No Consult To -> Meggan Schedule When? -> TODAY Released on: 0 1:15 PM [id number] CBC WITH AUTOMATED DIFF [#[id number]] Priority: STAT Class: E R Collect Standing Order Information Remaining Occurrences:0/1 Interval:ONE TI ME Last released:06/16/2020 Released orders: TueJun 16, 2020 1:15 PM by: TAMICA LOMAX [id number] METABOLIC PANEL, COMPREHENSIVE [#[id number]] Priority: STAT Class: ER Collect Sta nding Order Information Remaining Occurrences:0/1 Interval:ONE TIME Last released:0 06/16/2020 Released orders: TueJun 16, 2020 1:15 PM by: TAMICA LOMAX [id number] PROTHROMBIN T ULISES + INR [#[id number]] Priority: STAT Class: ER Collect Standing Order Information Remaining Occurrences:0/1 Interval:ONE TIME Last released:06/16/2020 Released orders : TueJun 16, 2020 1:15 PM by: TAMICA LOMAX [id number] PTT [#[id number]] Priority: STAT Class: ER Collect Specimen Source: Blood Standing Order Information Remain ing Occurrences:0/1 Interval:ONE TIME Last released:06/16/2020 Released orders : TueJun 16, 2020 1:15 PM by: TAMICA LOMAX [id number] DRUG SCREEN, URINE [# [id number]] Priority: STAT Class: ER Collect Standing Order Information Remaining Occurrences:0 /1 Interval:ONE TIME Last released:06/16/2020 Released orders: TueJun 16, 2020 1:15 PM by: TAMICA LOMAX [id number] ETHYL ALCOHOL [#[id number]] Priority: STAT Class: ER Collect Standing Order Information Remaining Occurrences:0/1 Interval:ONE TI ME Last released:06/16/2020 Released orders: TueJun 16, 2020 1:15 PM by: TAMICA LOMAX [id number] URINALYSIS W/ RFLX MICROSCOPIC [#[id number]] Priority: STAT Class: ER Collect Sta nding Order Information Remaining Occurrences:0/1 Interval:ONE TIME Last released:0 06/16/2020 Released orders: TueJun 16, 2020 1:15 PM by: TAMICA LOMAX [id number] CBC WITH AUTO MATED DIFF [#[id number]] Priority: STAT Class: ER Collect Specimen Source: Whole Blood S pecimen Collected: 06/16/2020 1:40 PM Resulting Agency: [facility] Test ID: [id number] Released on: 06/16/2020 1:15 PM [id number] METABOLIC PANEL, COMPREHENSIVE [#[id number]] Dana ority: STAT Class: ER Collect Specimen Source: Plasma Specimen Collected: 06/16/2020 1:40 PM Nava fortune Agency: [facility] Test ID: MPL Released on: 06/16/2020 1:15 PM [id number] PROTHROMBIN TIME + INR [#[id number]] Priority: STAT Class: ER Collect Specimen Source : Plasma Specimen Collected: 06/16/2020 1:40 PM Resulting Agency: [facility] Test ID: APTHR Released on: 06/16/2020 1:15 PM [id number] PTT [#[id number]] Priority: STAT Class: ER Collect Specimen Source: Plasma Specimen Collected: 06/16/2020 1:40 PM Resulting Agency: [facility] Test ID: APTT Released on: 06/16/2020 1:15 PM LAB 2119 DRUG SCREEN, URINE [#[id number]] Priority: STAT Class: ER Collect Speci men Source: Urine, random Specimen Collected: 06/16/2020 1:28 PM Resulting Agency: [facility] Test ID: URDS Released on: 06/16/2020 1:15 PM [id number] ETHYL ALCOHOL [#[id number]] Priority: STAT Class: ER Collect Specimen Source: Plasma Specimen Collected: 05/28 1:40 PM Resulting Agency: [facility] Test ID: MALC Released on : 06/16/2020 1:15 PM [id number] URINALYSIS W/ RFLX MICROSCOPIC [#[id number]] Priority: STAT Class: ER Collect Specimen Source: Urine Specimen Collected: 06/16/2020 1:28 PM Resulting Agency: [facility] Test ID: UA Released on: 06/16/2020 1:15 PM [id number] INITIAL PHYSICIAN ORDER: IN PATIENT [#[id number]] Priority: Routine Class: ADT Pend Transfer Standing Order Information Remaining Occurrences:0/1 Interval:ONE TIME Last released:06/16/2020 Released orders : TueJun 16, 2020 5:02 PM by: FLORENTINO NULL Status: -> IP REHABILITATION Inpati ent Hospitalization Certified Necessary for the Following Reasons -> 3- . P- a- t- i- e- n- t r- e- c- e- i- v- i- n- g t- r- e - a- t- m- e- n- t t- h- a- t c- a- n o- n- l- y b- e p- r- o- v- i- d- e- d i- n a- n i- n- p- a- t- i- e- n- t s- e- t- t- i- n- g (- f- u- r- t- h- e- r c- l- a- r- i- f- i- c- a- t- i- o- n i- n H- &- P d- o- c- u- m- e- n- t- a- t- i- o- n- ) Admitting Diagnosi s -> Benzodiazepine dependence (HCC) Admitting Physician -> FLORENTINO NULL Attending Physici an -> TEENA COLBERT Estimated Length of Stay -> 3-4 Midnights Discharge Plan: -> Home w ith Office Follow-up [id number] INITIAL PHYSICIAN ORDER: INPATIENT [#[id number]] Priority: Routine Class : ADT Pend Transfer Status: -> IP REHABILITATION Inpatient Hospitalization Certified Necessary for the Following Reasons -> 3- . P- a- t- i- e- n- t r- e- c - e- i- v- i- n- g t- r- e- a- t- m- e- n- t t- h- a- t c- a- n o- n- l- y b- e p- r- o- v- i- d- e- d i- n a- n i- n- p- a- t- i- e- n- t s- e- t- t- i- n- g (- f- u- r- t- h- e- r c- l- a- r- i- f- i- c- a- t- i- o- n i- n H- &- P d- o- c- u- m- e- n- t- a- t- i- o- n- ) Admitting Diagnosis -> Benzodiazepine dependence (HCC) Adm itting Physician -> FLORENTINO NULL Attending Physician -> TEENA COLBERT Estimated Length o f Stay -> 3-4 Midnights Discharge Plan: -> Home with Office Follow-up Released on: 06/16/2020 5: 02 PM COD2 FULL CODE [#[id number]] Priority: Routine Class: Hospital Perf ormed Standing Order Information Remaining Occurrences:N/A-not released Interval :CONTINUOUS [id number] VITAL SIGNS PER UNIT ROUTINE [#[id number]] Priority: STAT Class: H ospital Performed Standing Order Information Remaining Occurrences:N/A-not released Interval :CONTINUOUS [id number] UP AD ARIELA [#[id number]] Priority: STAT Class: H ospital Performed Standing Order Information Remaining Occurrences:N/A-not released Interval :CONTINUOUS [id number] NOTIFY PROVIDER: VITAL SIGNS CHANGES [#[id number]] Priority: STAT Class: H ospital Performed Standing Order Information Remaining Occurrences:N/A-not released Interval :CONTINUOUS [id number] DIET REGULAR [#[id number]] Priority: STAT Class: H ospital Performed Standing Order Information Remaining Occurrences:N/A-not released Interval :DIET EFFECTIVE NOW Comment:Encourage fluids [id number] PLEASE READ & DOCUMENT PPD TEST IN 4* [#[id number]] Priority: Routine Class: ER Collect Standing Order Information Remaining Occurrences:N /A-not released Interval:ONE TIME [id number] PLEASE READ & DOCUMENT PPD TEST IN 7* [#[id number]] Priority: Routine Class: ER Collect Standing Order Information Remaining Occurrences:N/A-not release d Interval:ONE TIMESabra Navarro MR#: [id number] * Rm: 380-01Ht: 5' 10" Wt: 185 lb Code: Not on file Iso:Diagnosis:Benzodiazepine dependence (HCC) [F13.20]Allergies: No Known Allergies -------- Current as of: 06/16/20 1731 ---This patient has no MAR information. ED Current OP Medicationsmethadone HCl (METHADONE PO)Sig:Take by mouth. Does not know dos ingDispense Amount:Start Date:End Date:Doc. Provider: Miles, MD Piotr ED Pre scriptions None on FileFollow-up InformationNone Name Value Range Interpretation Code Description Data [facility] rce(s) Supporting Document(s ) ID Date Data Source [id number] 06/16/2020 05:16:45 PM EDT [facility] Chart reviewed for pending admit. Name Value Range Interpretation Code Description Data [facility] rce(s) Supporting Document(s ) ID Date Data Source [id number] 06/16/2020 05:13:35 PM EDT [facility] TRANSFER - OUT REPORT:Verbal report give n to Cecy CHACON (name[facility] utine progression of careReport consisted of patient's Situation, Background, Assessm ent andRecommendations(SBAR).Information from the following report(s) SBAR, ED Summary , MAR and RecentResults was reviewed with the receiving nurse.Lines:Opportunity for qu estions and clarification was provided.Patient transported with:Jessica ings Name Value Range Interpretation Code Description Data [facility] rce(s) Supporting Document(s ) ID Date Data Source [id number] 06/16/2020 04:56:02 PM EDT [facility] HPI1:19 PM: Sabra Navarro is a 25 y.o. male with medical history of benzoaddiction since age 14. Patient has been on Xanax daily and last dose was thismorning wants to detox from Xanax. Patient tried detox 1 -1/2 months ago butrelapsed.History reviewed. No pertinent past medical history.Histor y reviewed. No pertinent surgical history.History reviewed. No pertinent f amily history.Social HistorySocioeconomic History Marital status: SINGLE Spouse name: Not on file Number of children: Not on file Years of education: Not on file H ighest education level: Not on fileOccupational History Not on fileSoc ial Needs Financial resource strain: Not on file Food insecurity Worry: Not on maryuri e Inability: Not on file Transportation needs Medical: Not on file Non-medical : Not on fileTobacco Use Smoking status: Current Every Day Smoker Smokeless toba customer account administrator: Never UsedSubstance and Sexual Activity Alcohol use: Yes Drug use: Yes Types: Heroin Comment: xanax Sexual activity: Yes Partners: FemaleLifestyle Physical acti vity Days per week: Not on file Minutes per session: Not on file Stress: Not on maryuri eRelationships Social connections Talks on phone: Not on file Gets together: Not o n file Attends mandaeism service: Not on file Active member of club or organizat ion: Not on file Attends meetings of clubs or organizations: Not on file Relations hip status: Not on file Intimate partner violence Fear of current or ex partner: Not on file Emotionally abused: Not on file Physically abused: Not on file Forced sexual activity: Not on fileOther Topics Concern Not on fileSocial History Narra tive Not on fileALLERGIES: Patient has no known allergies.Review of SystemsConstit utional: Negative for chills and fever.HENT: Negative for rhinorrhea and sore throat. Eyes: Negative for photophobia and visual disturbance.Respiratory: Negative for co ugh and shortness of breath.Cardiovascular: Negative for chest pain and leg swelling .Gastrointestinal: Negative for abdominal pain, diarrhea, nausea and vomiting.Renee tourinary: Negative for dysuria and hematuria.Musculoskeletal: Negative for back pain and myalgias.Skin: Negative for color change and pallor.Neurological: Ne gative for seizures and syncope.Vitals: 06/16/20 1316BP: (!) 108/58Pulse: (!) 11 1Resp: 18Temp: 99.8 F (37.7 C)SpO2: 97%Weight: 83.9 kg (185 lb)Height: 5' 10 " (1.778 m)Physical ExamVitals signs and nursing note reviewed.Constitutional: Appearance: Normal appearance.HENT: Head: Normocephalic. Nose: Nose normal. Mo uth/Throat: Mouth: Mucous membranes are moist.Eyes: Extraocular Movements: Ext raocular movements intact. Conjunctiva/sclera: Conjunctivae normal. Pupils: Pupils are equal, round, and reactive to light.Neck: Musculoskeleta l: Normal range of motion.Cardiovascular: Rate and Rhythm: Normal rate. Pulses: Normal pulses.Pulmonary: Effort: Pulmonary effort is normal. Breath sounds: Margarita l breath sounds.Abdominal: General: Abdomen is flat. Bowel sounds are normal. Tend erness: There is no abdominal tenderness.Musculoskeletal: Normal range of motion.Skin: General: Skin is warm. Capillary Refill: Capillary refill takes less than 2 seconds.Neurological: General: No focal deficit present. Mental Statu s: He is alert and oriented to person, place, and time. Mentalstatus is at baseline.Ps ychiatric: Mood and Affect: Mood normal. Behavior: Behavior normal.MDMMonie Gore Robin S, MD, reviewed the patient's past history, allergies and homemedicati ons as documented in the nursing chart.Labs:Recent Results (from the past 12 hour(s))DRUG SCREEN, URINE Collection Time: 06/16/20 1:28 PMResult Value Ref Range PCP(PHENCYCLIDINE) Negative NEG BENZODIAZEPINES Positive (A) NEG COCAINE Negative NEG AMPHETAMINES Negative NEG METHADONE Positive (A) NEG THC (TH-CANNA BINOL) Negative NEG OPIATES Positive (A) NEG BARBITURATES Negative NEGURINALYSIS W/ R FLX MICROSCOPIC Collection Time: 06/16/20 1:28 PMResult Value Ref Range Color YELL OW YEL Appearance CLEAR CLEAR Specific gravity 1.019 1.003 - 1.030 pH (UA) 5.5 4.6 - 8.0 Protein Negative NEG mg/dL Glucose Negative NEG mg/dL Ketone Negative NEG m g/dL Bilirubin Negative NEG Blood Negative NEG Urobilinogen 0.2 0.2 - 1.0 EU/dL Nit rites Negative NEG Leukocyte Esterase Negative NEGCBC WITH AUTOMATED DIFF Rakesh ection Time: 06/16/20 1:40 PMResult Value Ref Range WBC 7.5 4.8 - 10.6 K/uL RBC 4. 12 (L) 4.70 - 6.00 M/uL HGB 12.3 (L) 14.0 - 18.0 g/dL HCT 36.3 (L) 42.0 - 52.0 % MCV 88.1 81.0 - 94.0 FL MCH 29.9 27.0 - 35.0 PG MCHC 33.9 30.7 - 37.3 g/dL RDW 12.9 11.5 - 14.0 % PLATELET 173 130 - 400 K/uL MPV 11.3 9.2 - 11.8 FL NRBC 0.0 0 PER 100 WB C ABSOLUTE NRBC 0.00 0.0 - 0.01 K/uL NEUTROPHILS 82 (H) 48.0 - 72.0 % LYMPHOC YTES 13 (L) 18.0 - 40.0 % MONOCYTES 4 2.0 - 12.0 % EOSINOPHILS 0 0.0 - 7.0 % BASOPHI LS 0 0.0 - 3.0 % IMMATURE GRANULOCYTES 0 0 - 0.5 % ABS. NEUTROPHILS 6.1 2.3 - 7.6 K/U L ABS. LYMPHOCYTES 1.0 0.9 - 4.2 K/UL ABS. MONOCYTES 0.3 0.1 - 1.7 K/UL ABS. EOSINO PHILS 0.0 0.0 - 1.0 K/UL ABS. BASOPHILS 0.0 0.0 - 0.4 K/UL ABS. IMM. GRANS. 0.0 0.0 - 0.17 K/UL DF AUTOMATEDMETABOLIC PANEL, COMPREHENSIVE Collection Time: 06/16/20 1:40 PMResult Value Ref Range Sodium 142 136 - 145 mmol/L Potassium 4.3 3.5 - 5.1 mmo l/L Chloride 110 (H) 98 - 107 mmol/L CO2 28 21 - 32 mmol/L Anion gap 9 (L) 10 - 20 m mol/L Glucose 136 (H) 74 - 106 mg/dL BUN 19 (H) 7 - 18 mg/dL Creatinine 1.08 0.70 - 1.30 mg/dL GFR est AA >60 >60 ml/min/1.73m2 GFR est non-AA >60 >60 ml/min/1.73m2 Brian cium 9.3 8.5 - 10.1 mg/dL Bilirubin, total 0.7 0.2 - 1.0 mg/dL ALT (SGPT) 80 (H) 13 - 61 U/L AST (SGOT) 38 (H) 15 - 37 U/L Alk. phosphatase 104 45 - 117 U/L Protein, to cris 6.9 6.4 - 8.2 g/dL Albumin 3.7 3.5 - 4.7 g/dL Globulin 3.2 1.7 - 4.7 g/dL A-G Rat io 1.1 0.7 - 2.8PROTHROMBIN TIME + INR Collection Time: 06/16/20 1:40 PMResult Value Ref Range Prothrombin time 10.7 9.4 - 11.1 sec INR 1.0 0.8 - 1.2PTT Collection Time: 06/16/20 1:40 PMResult Value Ref Range aPTT 26.2 21.0 - 28.0 SECETHYL ALC OHOL Collection Time: 06/16/20 1:40 PMResult Value Ref Range ETHYL ALCOHOL, SERUM <3. 0 <10 MG/DLRadiology:CXR Results (Last 48 hours) NoneCT Results (Last 48 hours) N oneEcho Results (Last 48 hours) None<EMERGENCY DEPARTMENT CASE SUMMARY>I mpression/Differential Diagnosis: Benzodiazepine dependence, polysubstance abuseED Course:25 y.o. male presented to the ED history of benzodiazepine dependence will beadmitted for detox.Final Impression/Diagnosis:Encounter Diagnoses ICD-10-CM ICD-9-CM1. Drug addiction (HCC) F19.20 304.902. Polysubstance abuse (HCC ) F19.10 305.90Patient condition at time of disposition: stableI have reviewed the [facility]:Prior to Admission medicationsMedication Sig Start Date End Date Taking? Authorizing Providermethadone HCl (METHADONE PO) Take by mouth. Does not know dosing Yes Other,Archana Saldaña, Tamica Robertson MD Name Value Range Interpretation Code Description Data Kelly rce(s) Supporting Document(s ) ID Date Data Source [id number] 06/16/2020 04:54:27 PM EDT [facility] Comprehensive Assessment Form Part 1Sect ion I - DispositionThe on-call Psychiatrist consulted was Dr. Null.The admitting D iagnosis is Polysubstance abuseParent/Guardian Name:NAThe Payor so urce isPayor/Plan Subscr Sex Relation Sub. Ins. ID Effective Group Num1. [place] MED[place]* SABRA NAVARRO 1995 Male Self [id number] [birth year]/19 [id number] [address]Section II - Integrated SummarySUMMARY:Summary: The patient is a 25 y.o. year old WHITE OR male brought tothe Emergency D epartment via private car and referred by self. Pt presented inthe Ed requesting d etox off benzo. Pt reports that he has been abusing xanaxsince the age of 14. Pt rep orts that he has been abusing over 6-12 mg of xanaxwith last usage 06/16 around 4 am us ing 4 mg. Pt reports that he has been totreatment and reports that he has neve r been able to control his urges tomaintain sobriety with benzo abuse. Pt reports t hat he was in intermediate Jul 2017 dueto DUI charges and pt reports that he pleaded to take o ne year [facility]. Pt reports that he currently has 2 open DUI charges. Pt reportsHX of treatment with most recently 3 months ago at [facility]. Ptreports attending detox at [facility] at least 2x a year, however reports that when he was released he picked up xanax and opiates, although as per the pt whenhe ernestina ludwigan Methadone maintenance August 2019 his opiate usage was decreased to 3times a w [place] using a bundle compared to daily, however has been unable tomaintain sobriety. Pt reports that since he has been on methadone he has not hadthe urge to use opiates an d has decreased the amount of time he has stolen fromhis family for drugs because decrease in urges. Pt reports seizure behavior age14 related to drug usage, corey simmons denies any current incidents with seizurebehavior. Pt denies any HX of any psych admission or any psych meds. Pt reportsfamily HX of addiction with his ernestina vences with opiates. Pt reports that he seekhelp elsewhere due to feeling " to c omfortable with [facility]" and needed a newenvironment. Pt denies any SI/HI/AH/V H. Pt is aaox4 and cooperative.The information is given by the patient.The Chief Complaint is polysubstance abuse .The Precipitant Factors are increased drug u mi.Previous Hospitalizations: NAThe patient has not previously been in restraints.Cu rrent Psychiatrist and/or [employer] [employer] Operator is NA.Disposition/Update:Pt will be admitte d to chemical dependence for benzo dependence and once ptmethadone maintenance dose tejada s been confirmed in the morning by RN on [phone] [facility], pt dosage of 70mg as reported can be prescribed.Lethality Assessment:The potential for suicide not ed by the following: notn oted . The potential forhomicide is not noted. The patient has not reported access to weapons.The patient has not been a perpe trator of sexual or physical abuse.The patient is not felt to be at risk for se lf harm or harm to others.Section III - PsychosocialPatient presents with anxiet y. Onset of symptoms was sudden. Patient statessymptoms have been exacerbated by chemical dependency. The patient's appearanceshows no evidence of impairmen t. The patient's behavior shows no evidence ofimpairment. The patient is oriented to time, place, person and situation.Feelings of helplessness and hopelessness are not observed. The patient'sappetite shows no evidence of impairment.Sleep PatternSlee p Pattern: RestlessnessUsual # of Hours of Sleep/Night: 6Current # of Hours of Slee p/Night: 2The patient speaks Eritrean as a primary language. The patient has nocom munication impairments affecting communication.The patient's preference f or learning can be described as: can read and writeadequately. The patient's hearing is normal. The patient's vision is normal.The patient is single. The hernesto nt lives with a parent. The patient does planto return home upon discharge.The ladan german's source of income comes from family. The patient is currentlyunemployed.The justin tai's greatest support comes from mother and this person will beinvolved with the treatment.The patient has not been in an event described as horrible or outside t he realmof ordinary life experience either currently or in the past.The patient has not been a victim of sexual/physical abuse.Legal status is DUI. The patient does have legal issues pending.Section IV - Substance AbuseThe patient does have a s ubstance abuse problem. The patient does have currentsubstance abuse treatment provide rs.Benzodiazepines/BarbituratesAge First Got High: 14 (06/16/201445)Pattern of Use i n Past Year: daily (06/16/201445)Frequency of Use: Daily (06/16/201445)Average Snyder unt Used: 6-12 mg Xanax (06/16/201445)How Long Using at Current Pattern: 3 months (06/16/201445)Date of Last Use: 06/16/20 (06/16/201445)Time of Last Use: 0400 (0 06/16/201445)Amount of Last Use: 4mg (09/21/20 1446)Are you able to stop on y our own: No (06/16/20 1446)Symptoms: Anxiety;Binge use;Continuous use 30 days ;Increased tolerance;Unable tolimit/control;Uses alone (06/16/20 144 6)HeroinAge First Got High: 14 (06/16/20 1446)Pattern of Use in Past Year: 2-3 ti mes a week (06/16/20 1446)Frequency of Use: 3-6 times per week (06/16/20 1446)Averag e Amount Used: bundle IV (06/16/20 1446)How Long Using at Current Pattern: 3 months (06/16/20 1446)Date of Last Use: 06/13/20 (06/16/20 1446)Amount of Last Use: a few bags (06/16/20 1446)Are you able to stop on your own: No (06/16/20 1446)Symptoms: An xiety;Binge use;Continuous use 30 days;Uses alone;Unable tolimit/control (06/16/20 1 446)MethadoneAge First Got High: 24 (06/16/20 1446)Pattern of Use in Past Year: daily (06/16/20 1446)Frequency of Use: Daily (06/16/20 144)Average Amount Used: 70mg mainteance (06/16/20 1446)How Long Using at Current Pattern: August 2019 (06/16/20 1446)Date of Last Use: 06/15/20 (06/16/20 1446)Amount of Last Use: 70mg (06/16/20 1446)Are you able to stop on your own: No (06/16/20 1446)Symptoms: Unable to limit /control (06/16/20 1446)Section V - Mental Status ExamAttitude and BehaviorGeneral Attitude: CooperativeAffect: FlatMood: AnxiousInsight: GoodJudgement: IntactMem ory : IntactThought Content: Blaming selfHallucinations: NoneDelusions: NoneC oncentration: GoodSpeech Pattern: UnremarkableThought Process: Unremarkabl eMotor Activity: UnremarkableSamira Aprea Name Value Range Interpretation Code Description Data Kelly rce(s) Supporting Document(s ) ID Date Data Source [id number] 06/16/2020 01:58:55 PM EDT [facility] Pt states uses 6-12 mg of xanax per day. Name Value Range Interpretation Code Description Data Kelly rce(s) Supporting Document(s ) ID Date Data Source [id number] 06/16/2020 02:26:43 PM EDT [facility] Name Value Range Interpretation Description Data Sup porting Code Source(s) Document(s ) Sodium 142 136-145 [facility] - Good [Moles/volume] mmol/L [facility] in Serum or Hospital Plasma Potassium 4.3 3.5-5.1 [facility] - Good [Moles/volume] mmol/L [facility] in Serum or Hospital Plasma Chloride 110 98-107 Above high normal [facility] - Good [Moles/volume] mmol/L [facility] in Serum or Hospital Plasma Carbon 28 21-32 [facility] dioxide, total mmol/L [facility] [Moles/volume] Hospital in Serum or Plasma Anion gap in 9 mmol/L 10-20 Below low normal [facility] - Go od Serum or [facility] Plasma Hospital Glucose 136 74-106 Above high normal [facility] - Good [Mass/volume] mg/dL [facility] in Serum or Hospital Plasma Urea nitrogen 19 mg/dL 7-18 Above high normal [facility] - Good [Mass/volume] [facility] in Serum or Hospital Plasma Creatinine 1.08 0.70-1.3 [facility] Good [Mass/volume] mg/dL 0 [facility] in Serum or Hospital Plasma Glomerular >60 [facility] - Good filtration [facility] rate/1.73 sq M Hospital predicted among blacks [Volume Rate/Area] in Serum or Plasma by Creatinine-bas ed formula (MDRD) Glomerular >60 [facility] - Good filtration [facility] rate/1.73 sq M Hospital predicted among non-blacks [Volume Rate/Area] in Serum or Plasma by Creatinine-bas ed formula (MDRD) (NOTE)Estimated GFR is calculated using the Modification of Diet in RenalDisease (MDRD) Study equation, reported for both Americans(GFRAA) and non- Americans (GFRNA), and normalized to 1.7 2e7prts surface area. The physician must decide which value applies tothe patient . The MDRD study equation should only be used inindividuals age 18 or older. It has no t been validated for thefollowing: women, patients with serious comorbid co nditions,or on certain medications, or persons with extremes of body size,muscl e mass, or nutritional status. Calcium [Mass/volume] in 9.3 mg/dL 8.5-10.1 [facility] Good Serum or Plasma [facility] ital Bilirubin.total 0.7 mg/dL 0.2-1.0 [facility] - Good [Mass/volume] in Serum or [facility] Plasma Alanine aminotransferase 80 U/L 13-61 Above high [facility] - Good [Enzymatic activity/volume] normal [facility] in Serum or Plasma Aspartate aminotransferase 38 U/L 15-37 Above high [facility] - Good [Enzymatic activity/volume] normal [facility] in Serum or Plasma by With P-5'-P Alkaline phosphatase 104 U/L 45-117 [facility] - G ood [Enzymatic activity/volume] [facility] in Serum or Plasma Protein [Mass/volume] in 6.9 g/dL 6.4-8.2 [facility] Good Serum or Plasma [facility] ital Albumin [Mass/volume] in 3.7 g/dL 3.5-4.7 [facility] Good Serum or Plasma by [facility] ostal Bromocresol purple (BCP) dye binding method Globulin [Mass/volume] in 3.2 g/dL 1.7-4.7 [facility] Good Serum by calculation [facility] Albumin/Globulin [Mass 1.1 0.7-2.8 [facility] Good Ratio] in Serum or Plasma [facility] ID Date Data Source [id number] 06/16/2020 02:26:43 PM EDT [facility] Name Value Range Interpretation Code Description Data Kelly rce(s) Supporting Document(s ) Ethanol <10 [facility] [Mass/volume [facility] ] in Serum Hospital or Plasma ID Date Data Source [id number] 06/16/2020 02:24:03 PM EDT [facility] Name Value Range Interpretation Description Data Sup porting Code Source(s) Document(s ) Prothrombin 10.7 sec 9.4-11.1 [facility] time (PT) [facility] INR in 1.0 0.8-1.2 [facility] Good Platelet poor [facility] plasma by Hospital Coagulation assay ID Date Data Source [id number] 06/16/2020 02:24:03 PM EDT [facility] Name Value Range Interpretation Description Data Sup porting Code Source(s) Document(s ) aPTT in 26.2 SEC 21.0-28. [facility] - Good Platelet poor 0 [facility] plasma by [facility] Coagulation assay Therapeutic Range = 42.0-60.0 secs ID Date Data Source [id number] 06/16/2020 02:05:10 PM EDT [facility] Name Value Range Interpretation Description Data Sup porting Code Source(s) Document(s ) Leukocytes 7.5 K/uL 4.8-10.6 [facility] - [#/volume] in Good Blood by [facility] Erythrocytes 4.12 4.70-6.0 Below low normal [facility] - [#/volume] in M/uL 0 Good Blood by [facility] Hemoglobin 12.3 14.0-18. Below low normal [facility] - [Mass/volume] in g/dL 0 Good Blood [facility] Hematocrit 36.3 % 42.0-52. Below low normal [facility] - [Volume 0 Good Fraction] of [facility] Blood by [facility] Automated count Erythrocyte mean 88.1 FL 81.0-94. [facility] - corpuscular 0 Good volume [Entitic [facility] volume] by Hospital Automated count Erythrocyte mean 29.9 PG 27.0-35. [facility] - corpuscular 0 Good hemoglobin [facility] [Entitic mass] [facility] by Automated count Erythrocyte mean 33.9 30.7-37. [facility] - corpuscular g/dL 3 Good hemoglobin [facility] concentration [facility] [Mass/volume] by Automated count Erythrocyte 12.9 % 11.5-14. [facility] - distribution 0 Good width [Ratio] by [facility] Platelets 173 K/uL 130-400 [facility] - [#/volume] in Good Blood by [facility] Platelet mean 11.3 FL 9.2-11.8 [facility] - volume [Entitic Good volume] in [facility] by Automated Hospital count Nucleated 0.0 PER 0 [facility] - erythrocytes/100 100 WBC Good leukocytes [facility] [Ratio] in Blood Hospital Nucleated 0.00 0.0-0.01 [facility] - erythrocytes K/uL Good [#/volume] in [facility] Segmented 82 % 48.0-72. Above high normal [facility] - neutrophils/100 0 Good leukocytes in [facility] Lymphocytes/100 13 % 18.0-40. Below low normal [facility] - leukocytes in 0 [facility] Monocytes/100 4 % 2.0-12.0 [facility] - leukocytes in [facility] Eosinophils/100 0 % 0.0-7.0 [facility] - leukocytes in [facility] Basophils/100 0 % 0.0-3.0 [facility] - leukocytes in [facility] Immature 0 % 0-0.5 [facility] - granulocytes/100 Good leukocytes in [facility] by Hospital Automated count Segmented 6.1 K/UL 2.3-7.6 [facility] - neutrophils Good [#/volume] in [facility] Lymphocytes 1.0 K/UL 0.9-4.2 [facility] - [#/volume] in [facility] Monocytes 0.3 K/UL 0.1-1.7 [facility] - [#/volume] in [facility] Eosinophils 0.0 K/UL 0.0-1.0 [facility] - [#/volume] in [facility] Basophils 0.0 K/UL 0.0-0.4 [facility] - [#/volume] in [facility] Immature 0.0 K/UL 0.0-0.17 [facility] - granulocytes Good [#/volume] in [facility] by Hospital Automated count Differential [facility] - cell count [facility] ID Date Data Source [id number] 06/16/2020 02:30:24 PM EDT [facility] Name Value Range Interpretation Description Data Sup porting Code Source(s) Document(s ) Phencyclidine NEG [facility] - Good [Presence] in [facility] Benzodiazepines NEG Abnormal (applies [facility] Good [Presence] in to non-numeric [facility] Urine results) Hospital Cocaine [Presence] NEG [facility] - Goo d in Urine by Screen [facility] method [facility] Amphetamine NEG [facility] - Good [Presence] in [facility] Urine by Screen [facility] method Methadone NEG Abnormal (applies [facility] - Good [Presence] in to non-numeric [facility] Urine results) [facility] Cannabinoids NEG [facility] - Good [Presence] in [facility] Urine by Screen [facility] method Opiates [Presence] NEG Abnormal (applies [facility] - Good in Urine to non-numeric [facility] results) [facility] Barbiturates NEG [facility] - Good [Presence] in [facility] Urine by Screen Hospital method (NOTE)Minimum Detectable LevelsPCP 25ng/mlBenzodiazepine 200ng/mlCocaine 300ng/ml Amphet/Methamphet 1000ng/mlMethadone 300ng/mlTHC 50ng/mlOpiate 300ng/mlBarbiturates 200ng/ml These threshold concentrations are used to separate anegative result from a presump tive positive result. Theseresults are unconfirmed. If confirmation of a presum ptivepositive is desired, an order for the specific drugtest is needed within 72 ho urs. A listing of interferingsubstances is available in the laboratory. ID Date Data Source [id number] 06/16/2020 02:08:56 PM EDT [facility] Name Value Range Interpretation Description Data Sup porting Code Source(s) Document(s ) Color of Urine YEL [facility] Appearance of CLEAR [facility] - Urine [facility] Specific gravity 1.019 1.003-1. [facility] - of Urine by 030 Good Refractometry [facility] pH of Urine by 5.5 4.6-8.0 [facility] - Test strip [facility] Protein NEG [facility] - [Mass/volume] in Good Urine by Test [facility] Glucose NEG [facility] - [Mass/volume] in Good Urine by [facility] Automated test [facility] strip Ketones NEG [facility] - [Presence] in Good Urine by [facility] Automated test [facility] strip Bilirubin.total NEG [facility] - [Presence] in Good Urine [facility] Hemoglobin NEG [facility] - [Presence] in Good Urine by Test [facility] Urobilinogen 0.2 0.2-1.0 [facility] - [Presence] in EU/dL Good Urine by [facility] Automated test [facility] strip Nitrite NEG [facility] - [Presence] in Good Urine by [facility] Automated test Hospital strip Leukocyte NEG [facility] - esterase Good [Presence] in [facility] Urine by Hospital Automated test strip ID Date Data Source [id number] 06/16/2020 01:23:33 PM EDT [facility] Chart review note: Reviewed chart for ladan de leon.Pending medical clearance at this time Name Value Range Interpretation Code Description Data Kelly rce(s) Supporting Document(s ) ID Date Data Source [id number] 06/16/2020 10:55:[address] [facility] 0 Name Value Range Interpretation Description Data Sup porting Code Source(s) Document(s ) Color of Urine YELLOW <content Saint styleCode="Kenyon Zoe d">Color, Medical Urine Center </content>YELL OW <content styleCode="Jessica lics"> (YELLOW )</content> UNK CLEAR <content [facility] styleCode="Kenyon Zoe d">Urine Medical Clarity Center </content>LINDEN R <content styleCode="Jessica lics"> (CLEAR )</content> Glucose NEGATIVE <content [facility] [Mass/volume] styleCode="Kenyon Zoe in Urine by d">Urine Medical Test strip Glucose Center </content>NEGA TIVE MG/DL<content styleCode="Jessica lics"> (NEGATIVE MG/DL)</conten t> UNK NEGATIVE <content Saint styleCode="Kenyon Zoe d">Urine Medical Bilirubin Center </content>NEGA TIVE <content styleCode="Jessica lics"> (NEGATIVE )</content> Ketones NEGATIVE <content [facility] [Mass/volume] styleCode="Kenyon Zoe in Urine by d">Urine Medical Test strip Ketone Center </content>NEGA TIVE MG/DL<content styleCode="Jessica lics"> (NEGATIVE MG/DL)</conten t> Protein NEGATIVE <content Saint [Mass/volume] styleCode="Kenyon Zoe in Urine by d">Urine Medical Test strip Protein Center </content>NEGA TIVE MG/DL<content styleCode="Jessica lics"> (NEGATIVE MG/DL)</conten t> Hemoglobin NEGATIVE <content Saint [Presence] in styleCode="Kenyon Enriquez Urine by Test d">Urine Blood Medical strip </content>NEGA Center TIVE <content styleCode="Jessica lics"> (NEGATIVE )</content> Specific 1.015-1.02 Above high <content Saint gravity of 5 normal styleCode="Kenyon Enriquez Urine by Test d">Urine Medical strip Specific Center [facility] </content>>= 1.030 H<content styleCode="Jessica lics"> (1.015-1.025 )</content> pH of Urine by 4.5-8.0 <content Saint Test strip styleCode="Kenyon Lundys d">Urine pH Medical </content>6.0 Center <content styleCode="Jessica lics"> (4.5-8.0 )</content> Nitrite NEGATIVE <content Saint [Presence] in styleCode="Kenyon Enriquez Urine by Test d">Urine Medical strip Nitrite Center </content>NEGA TIVE <content styleCode="Jessica lics"> (NEGATIVE )</content> Leukocyte NEGATIVE <content Saint esterase styleCode="Kenyon Lundys [Presence] in d">Urine Medical Urine by Test Leukocyte Center strip </content>NEGA TIVE <content styleCode="Jessica lics"> (NEGATIVE )</content> Urobilinogen 0.2-1.0 <content Saint [Units/volume] styleCode="Kenyon Enriquez in Urine by d">Urine Medical Test strip Urobilinogen Center </content>0.2 MG/DL<content styleCode="Jessica lics"> (0.2-1.0 MG/DL)</conten t> ID Date Data Source CHMROUTINECCDA.[id number] 06/16/2020 10:55:00 AM EDT [facility] Name Value Range Interpretation Description Data Sup porting Code Source(s) Document(s ) Cannabinoids <content Saint [Presence] in styleCode="[facility] Urine by Screen d">Cannabinoid Medical method >50 ng/mL s Center </content>NEGA TIVE NG/ML (Reference Range: not available)<br/ > ID Date Data Source Liver 06/16/2020 09:42:00 AM EDT [facility] Profile.[id number] Name Value Range Interpretation Description Data Sup porting Code Source(s) Document(s ) Aspartate 17-59 <content Saint aminotransferase styleCode="Bold"> Virgilio hs [Enzymatic Aspartate Medical activity/volume] Aminotransferase Center in Serum or Plasma (AST) </content>48 IU/L<content styleCode="Italic s"> (17-59 IU/L)</content> Alanine 7-50 Above high <content Saint aminotransferase normal styleCode="Bold"> Virgilio hs [Enzymatic Alanine Medical activity/volume] Aminotransferase Center in Serum or Plasma (ALT) </content>82 IU/L H<content styleCode="Italic s"> (7-50 IU/L)</content> Bilirubin.total 0.2-1.3 <content Saint [Mass/volume] in styleCode="Bold"> Virgilio hs Serum or Plasma Bilirubin Total Medical </content>0.3 Center MG/DL<content styleCode="Italic s"> (0.2-1.3 MG/DL)</content> Alkaline 38-126 <content Saint phosphatase styleCode="Bold"> Zoe [Enzymatic Alkaline Medical activity/volume] Phosphatase (ALP) Cente r in Serum or Plasma </content>104 IU/L<content styleCode="Italic s"> (38-126 IU/L)</content> Albumin 3.5-5.0 <content Saint [Mass/volume] in styleCode="Bold"> Virgilio hs Serum or Plasma Albumin Medical </content>4.5 Center G/DL<content styleCode="Italic s"> (3.5-5.0 G/DL)</content> ID Date Data Source HematologyRou.[id number] 06/16/2020 09:42:00 AM EDT [facility] 0400 Name Value Range Interpretation Description Data Sup porting Code Source(s) Document(s ) Hematocrit 41.0-53. Below low normal <content Saint [Volume 0 styleCode="Bold Zoe Fraction] of ">Hematocrit Medical Blood by </content>39.9 Center Automated count % L<content styleCode="Ital ics"> (41.0-53.0 %)</content> Leukocytes 4.4-11.0 <content Saint [#/volume] in styleCode="Bold Zoe Blood by ">White Blood Medical Automated count Cell Count Center </content>6.78 KCUMM<content styleCode="Ital ics"> (4.4-11.0 KCUMM)</content > Hemoglobin 13.5-17. Below low normal <content Saint [Mass/volume] in 5 styleCode="Bold Zoe Blood ">Hemoglobin Medical </content>13.4 Center G/DL L<content styleCode="Ital ics"> (13.5-17.5 G/DL)</content> Erythrocytes 4.4-5.9 <content Saint [#/volume] in styleCode="Bold Zoe Blood by ">Red Blood Medical Automated count Cell Count Center </content>4.55 MCUMM<content styleCode="Ital ics"> (4.4-5.9 MCUMM)</content > Erythrocyte mean 80.0-100 <content Saint corpuscular .0 styleCode="Bold Zoe volume [Entitic ">Mean Medical volume] by Corpuscular Center Automated count Volume </content>87.7 FL<content styleCode="Ital ics"> (80.0-100.0 FL)</content> Platelets 130-400 <content Saint [#/volume] in styleCode="Bold Zoe Blood by ">Platelet Medical Automated count Count Center </content>186 KCUMM<content styleCode="Ital ics"> (130-400 KCUMM)</content > Erythrocyte mean 32.0-37. <content Saint corpuscular 0 styleCode="Bold Zoe hemoglobin ">Mean Corpus. Medical concentration Hgb Center [Mass/volume] by Concentration Automated count (MCHC) </content>33.6 G/DL<content styleCode="Ital ics"> (32.0-37.0 G/DL)</content> Erythrocyte 11.5-14. <content Saint distribution 5 styleCode="Bold Zoe width [Ratio] by ">Red Cell Medical Automated count Distribution Center Width </content>13.1 %<content styleCode="Ital ics"> (11.5-14.5 %)</content> Erythrocyte mean 26.0-34. <content Saint corpuscular 0 styleCode="Bold Zoe hemoglobin ">Mean Medical [Entitic mass] Corposcular Center by Automated Hemoglobin count </content>29.5 PG<content styleCode="Ital ics"> (26.0-34.0 PG)</content> Lymphocytes 24.0-44. <content Saint [#/volume] in 0 styleCode="Bold Zoe Blood by ">Lymphocyte Medical Automated count </content>41.7 Center %<content styleCode="Ital ics"> (24.0-44.0 %)</content> UNK 1.6-7.3 <content Saint styleCode="Bold Zoe ">Neutrophil Medical Count Center </content>3.08 KCUMM<content styleCode="Ital ics"> (1.6-7.3 KCUMM)</content > Neutrophils 36-66 <content Saint [#/volume] in styleCode="Bold Zoe Blood by ">Neutrophil Medical Automated count </content>45.4 Center %<content styleCode="Ital ics"> (36-66 %)</content> Platelet mean 8.0-11.0 Above high <content Saint volume [Entitic normal styleCode="Bold Zoe volume] in Blood ">Mean Platelet Medical by Automated Volume Center count </content>11.3 FL H<content styleCode="Ital ics"> (8.0-11.0 FL)</content> Eosinophils 0-5.0 <content Saint [#/volume] in styleCode="Bold Zoe Blood by ">Eosinophil Medical Automated count </content>1.2 Center %<content styleCode="Ital ics"> (0-5.0 %)</content> Monocytes 3.0-10.0 Above high <content Saint [#/volume] in normal styleCode="Bold Zoe Blood by ">Monocyte Medical Automated count </content>10.8 Center % H<content styleCode="Ital ics"> (3.0-10.0 %)</content> UNK 1.0-4.8 <content Saint styleCode="Bold Zoe ">Lymphocyte Medical Count Center </content>2.83 KCUMM<content styleCode="Ital ics"> (1.0-4.8 KCUMM)</content > UNK 0.2-0.9 <content Saint styleCode="Bold Zoe ">Monocyte Medical Count Center </content>0.73 KCUMM<content styleCode="Ital ics"> (0.2-0.9 KCUMM)</content > UNK 0 <content Saint styleCode="Bold Zoe ">Nucleated Red Medical Blood Cell Center </content>0.0 /100<content styleCode="Ital ics"> (0 /100)</content> UNK 0.0-0.6 <content Saint styleCode="Bold Zoe ">Eosinophil Medical Count Center </content>0.08 KCUMM<content styleCode="Ital ics"> (0.0-0.6 KCUMM)</content > UNK 0.0-0.3 <content Saint styleCode="Bold Zoe ">Basophil Medical Count Center </content>0.04 KCUMM<content styleCode="Ital ics"> (0.0-0.3 KCUMM)</content > Basophils 0.0-1.0 <content Saint [#/volume] in styleCode="Bold Zoe Blood by ">Basophil Medical Automated count </content>0.6 Center %<content styleCode="Ital ics"> (0.0-1.0 %)</content> UNK 0-0.1 <content Saint styleCode="Bold Zoe ">Immature Medical Granulocyte Center Count </content>0.02 KCUMM<content styleCode="Ital ics"> (0-0.1 KCUMM)</content > UNK 0.0 <content Saint styleCode="Bold Zoe ">Nucleated Red Medical Blood Cell Center Count </content>0.00 KCUMM<content styleCode="Ital ics"> (0.0 KCUMM)</content > UNK < 1 <content Saint styleCode="Bold Zoe ">Immature Medical Granulocyte Center Ratio </content>0.3 %<content styleCode="Ital ics"> (< 1 %)</content> ID Date Data Source GFR(Creatinine).[id number] 06/16/2020 09:42:[address] [facility] 0-0400 Name Value Range Interpretation Code Description Data Kelly rce(s) Supporting Document(s ) UNK > 60 <content Zoe styleCode="Bold"> Medical Cent er EGFR </content>95 GFR<content styleCode="Italic s"> (> 60 GFR)</content> ID Date Data Source Coagulation 06/16/2020 09:42:00 AM [facility] ical Center Rout.[id number] EDT Name Value Range Interpretation Description Data Sup porting Code Source(s) Document(s ) UNK 9.0-13.0 <content Saint styleCode="Bold" Zoe >Protime Medical </content>11.4 Center SEC<content styleCode="Itali cs"> (9.0-13.0 SEC)</content> INR in 0.80-1.2 <content Saint Platelet poor 0 styleCode="Bold" Zoe plasma by >INR Medical Coagulation </content>1.03 Center assay #<content styleCode="Itali cs"> (0.80-1.20 #)</content> aPTT in 25.1-36. <content Saint Platelet poor 5 styleCode="Bold" Zoe plasma by >Partial Medical Coagulation Thromboplastin Center assay Time </content>30.6 SEC<content styleCode="Itali cs"> (25.1-36.5 SEC)</content> ID Date Data Source CHMROUTINECCDA.[id number] 06/16/2020 09:42:[address] [facility] -0400 Name Value Range Interpretation Description Data Sup porting Code Source(s) Document(s ) UNK >= 1.0 <content Saint Zoe styleCode="Bold Medical ">AG Ratio Center </content>1.6 <content styleCode="Ital ics"> (>= 1.0 )</content> UNK 2.3-3.5 <content Saint Zoe styleCode="Bold Medical ">Globulin Center </content>2.8 G/DL<content styleCode="Ital ics"> (2.3-3.5 G/DL)</content> Protein 6.3-8.2 <content Saint Zoe [Mass/volum styleCode="Bold Medical e] in Serum ">Total Protein Center or Plasma </content>7.3 G/DL<content styleCode="Ital ics"> (6.3-8.2 G/DL)</content> ID Date Data Source [facility].[id number] 06/16/2020 09:42:00 AM EDT [facility] Name Value Range Interpretation Description Data Sup porting Code Source(s) Document(s ) Chloride 98-107 <content Saint [Moles/volume] in styleCode="Bold"> [facility] Serum or Plasma Chloride Medical </content>103 Center MEQ/L<content styleCode="Italic s"> (98-107 MEQ/L)</content> Sodium 137-145 <content Saint [Moles/volume] in styleCode="Bold"> [facility] Serum or Plasma Sodium Medical </content>138 Center MEQ/L<content styleCode="Italic s"> (137-145 MEQ/L)</content> Carbon dioxide, 22-30 <content Saint total styleCode="Bold"> Zoe [Moles/volume] in Carbon Dioxide Medical Serum or Plasma </content>27 Center MEQ/L<content styleCode="Italic s"> (22-30 MEQ/L)</content> Potassium 3.5-5.3 <content Saint [Moles/volume] in styleCode="Bold"> [facility] Serum or Plasma Potassium Medical </content>4.0 Center MEQ/L<content styleCode="Italic s"> (3.5-5.3 MEQ/L)</content> UNK > 60 <content Saint styleCode="Bold"> Zoe EGFR </content>95 Medical GFR<content Center styleCode="Italic s"> (> 60 GFR)</content> UNK 9-20 <content Saint styleCode="Bold"> Zoe BUN </content>20 Medical MG/DL<content Center styleCode="Italic s"> (9-20 MG/DL)</content> Creatinine 0.5-1.3 <content Saint [Mass/volume] in styleCode="Bold"> Virgilio hs Serum or Plasma Creatinine Medical </content>1.0 Center MG/DL<content styleCode="Italic s"> (0.5-1.3 MG/DL)</content> Glucose 74-106 Above high <content Saint [Mass/volume] in normal styleCode="Bold"> Virgilio hs Serum or Plasma Glucose Medical </content>113 Center MG/DL H<content styleCode="Italic s"> (74-106 MG/DL)</content> Calcium 8.4-10. <content Saint [Mass/volume] in 2 styleCode="Bold"> Virgilio hs Serum or Plasma Calcium Medical </content>9.6 Center MG/DL<content styleCode="Italic s"> (8.4-10.2 MG/DL)</content> Aspartate 17-59 <content Saint aminotransferase styleCode="Bold"> Virgilio hs [Enzymatic Aspartate Medical activity/volume] Aminotransferase Center in Serum or Plasma (AST) </content>48 IU/L<content styleCode="Italic s"> (17-59 IU/L)</content> Alanine 7-50 Above high <content Saint aminotransferase normal styleCode="Bold"> Virgilio hs [Enzymatic Alanine Medical activity/volume] Aminotransferase Center in Serum or Plasma (ALT) </content>82 IU/L H<content styleCode="Italic s"> (7-50 IU/L)</content> Bilirubin.total 0.2-1.3 <content Saint [Mass/volume] in styleCode="Bold"> Virgilio hs Serum or Plasma Bilirubin Total Medical </content>0.3 Center MG/DL<content styleCode="Italic s"> (0.2-1.3 MG/DL)</content> Alkaline 38-126 <content Saint phosphatase styleCode="Bold"> Zoe [Enzymatic Alkaline Medical activity/volume] Phosphatase (ALP) Cente r in Serum or Plasma </content>104 IU/L<content styleCode="Italic s"> (38-126 IU/L)</content> Albumin 3.5-5.0 <content Saint [Mass/volume] in styleCode="Bold"> Virgilio hs Serum or Plasma Albumin Medical </content>4.5 Center G/DL<content styleCode="Italic s"> (3.5-5.0 G/DL)</content> ID Date Data Source [id number] 05/22/2020 12:00:00 AM EDT [facility] Name Value Range Interpretation Code Description Data Kelly rce(s) Supporting Document(s ) 2019-nCoV [facility] RNA XXX GUIDO+probe- Imp This lab was ordered by [facility] and reported by [employer] [facility]. ID Date Data Source [id number] 05/17/2020 01:25:00 PM EDT [facility] Name Value Range Interpretation Description Data Sup porting Code Source(s) Document(s ) SARS [facility] coronavirus 2 RNA This lab was ordered by [facility] and reported by [facility]. ID Date Data Source [id number] 04/20/2020 07:58:00 AM EDT [facility]1995[facility] Microbiology - Wound/Misc CulturesPROCED URE: Culture,Aerobic and Anaerobic with Gram StainSOURCE: Other BODY SITE: N/ACOLLECTED DATE/T ULISES: 04/14/2020 18:58 EDT RECEIVED DATE/TIME: 04/15/2020 08:46 EDTSTAR T DATE/TIME: 04/15/2020 08:47 EDT FREE TEXT SOURCE: Right Axillae ORDERING PHYSICIAN: Claude Cardenas MDFINAL REPORTSFinal Report []Reported Date/Time: 04/20/2020 07:58 EDTMany Methicillin-Resistant Staphyloco ccus aureus Results called to Dr. lynn [facility] ed by mg with Read Back 04/17/2020 10 :26:08 No anaerobic organisms isolated.PRELIMINARY REPORTSPrelim inary Report []Reported Date/Time: 04/17/2020 10:26 EDTMany Methicillin-Resistant Stap hylococcus aureus Results called to Dr. lynn [facility] ed by mg with Read Back 10:26:08 No anaerobes isolated to date. Continuing incubationPreliminary Report []Reported Date/Time: 04/16/2020 12:19 EDTMany Gram Positive Cocci Continuing incubationSTAINSGS []Reported Date/Time: 04/15/2020 11:03 EDTFew White Blood Cells Few Gram Positive Cocci in clustersSUSCEPTIBILITY RESULTS MRSAAntibiotic KELLEE Dilutn KELLEE InterpCefoxitin PO S.Clindamycin 0.25 SusceptibleDaptomycin 1 SusceptibleDoxycycline 1 SusceptibleErythromycin >=8 ResistantLinezolid 2 SusceptibleOxacillin >=4 ResistantRifampicin <=0.5 SusceptibleTetracycline 2 SusceptibleTigecycline 0.25 SusceptibleTrimethoprim/ <=10 SusceptibleSulfaVancomycin 1 Susceptible Name Value Range Interpretation Code Description Data Kelly rce(s) Supporting Document(s ) ID Date Data Source {[id number] 04/14/2020 07:26:00 PM EDT [facility] [id number]} [facility] Patient: ANGELIA NAVARRO Age: 24 years Sex: Male : 1995 Associated Diagnoses: Abscess Author: Claude Cardenas MD Basic Information Time seen: 04/14/2020, 17:39. History source: Yanique humphrey Arrival mode: Private vehicle. History limitation: None. Additional information : Chief Complaint from Nursing Triage Note : Chief Complaint 04/14/2020 17:02 EDT Chief Complaint right axilla lump per pt i squeezed it and it came back ar ea darkened, circled with marker by [place] nurse and site seams smaller than marking. . History of Present Illness Patient is a 24 year old male with past medical history including alcohol abuse [facility] at the right rib. Patient states that he has had a l ump at the right lateral rib for the past several days. He states that yesterday he squeezed the region and popped it. He states that since then he has continued to have pain and redness of the region. He was seen by medical staff at [facility] and a skin marking pen was drawn around the region to monitor the erythema. He stat es that he felt there was still things to drain from the region, which prompted robbie fierro to come to the ED for evaluation. He denies any associated fever, chills, davian sea, or vomiting. Review of Systems Constitutional symptoms: No fever, no c hills. Skin symptoms: Cyst at the right lateral rib, No rash, Eye symptoms: Vi memo unchanged. ENMT symptoms: No sore throat, no nasal congestion. Respirator y symptoms: No shortness of breath, no cough. Cardiovascular symptoms: No hanna st pain, Gastrointestinal symptoms: No abdominal pain, no nausea, no vomiting, no diarrhea, no constipation. Genitourinary symptoms: No dysuria, no hematuria. Mu sculoskeletal symptoms: No back pain, Neurologic symptoms: No headache, no di zziness. Allergy/immunologic symptoms: NKA. Health Status Allergies: Allergic Reac tions (Selected)No Known Allergies. Past Medical/ Family/ Social History Social h istory: Currently resides at [facility]. Problem list: Active Problems (2)Alcohol abuse Smoker . Physical Examination Vital Signs Vital Signs 04/14/2020 17:02 EDT Temperature Oral 98.2 DegF Systolic Blood Pressure 153 m mHg AK Diastolic Blood Pressure 90 mmHg Heart Rate Monitored 94 bpm Respiratory Rate 18 br/min . Measurements 04/14/2020 17:02 EDT Clinical Weight 86 kg Body Ma ss Index Measured 27.14 kg/m2 Body Mass Index Measured 27.14 kg/m2 Height/Lengt h Measured 178 cm . Basic Oxygen Information 04/14/2020 17:02 EDT Oxygen Therapy Room air SpO2 99 % . General: Alert, pleasant and cooperative. Resting comfortably in bed upon examination. Skin: Dry, no rash, 3 cm x 3.5 cm cyst at the right lateral lo wer axillary region with trace surrounding erythema. No warmth appreciated. There is a centralized opening at the region. Small amount of fluctuance appreciated w hen squeezing and there is small amount of pustule/bloody discharge. No ascending lymphangitis.. Head: Normocephalic, atraumatic. Neck: Supple, trachea midl ine. Eye: Pupils are equal, round and reactive to light, extraocular movements are intact. Ears, nose, mouth and throat: Oral mucosa moist, no pharyngeal erythem a or exudate. Cardiovascular: Regular rate and rhythm, No murmur, No edema, S1, S2. Respiratory: Lungs are clear to auscultation, respirations are non-labor ed, breath sounds are equal, Symmetrical chest wall expansion, No wheezing/rales/ rhonchi. Gastrointestinal: Soft, Nontender, Non distended, Normal bowel sounds, Guar ding: Negative, Rebound: Negative. Back: Nontender, Normal range of motion, No CV A tenderness bilaterally. Musculoskeletal: Normal ROM (bilateral upper extremity an d lower extremity), no swelling, no deformity, no c/c/e. Neurological: Dodie rt and oriented to person, place, time, and situation, fluent speech, appropriate co nversation, PERRLA/EOMI bilaterally and symmetric facial expressions bilaterally . Medical Decision Making Differential Diagnosis: Skin rash, Cyst., Abscess. Rationale: After initial examination and evaluation plan is to perform IandD, as there is still mild fluctuance appreciated at the cyst, send bacterial culture, and re assess with likelihood that the patient be discharged back to [facility] for further evaluation and care. Documents reviewed: Emergency departmen t nurses' notes. Orders Launch Order Profile (Selected) Inpatient OrdersOrderedlidoca ine 2% injectable: 5 mL, Subcutaneous, As directedOrdered (Dispatched)Culture,Body Fluid with Gram Stain: . Reexamination/ Reevaluation Time: 04/14/2020 18:52:00 . Interventions: Order Profile (Selected) Inpatient OrdersOrderedBactrim DS: 1 tab , Oral, Once. Notes: IandD procedure performed with small amount of purulent/ bloody drainage. Please refer to procedure note for details. Discussed plan to giv e Bactrim here in the ED and discharged back to [facility] for further evaluation and care. Discussed reasons to return to the ED. All questions answered. Patient understa nds and agrees with plan of care. Procedure Incision and drainage Time: 04/14/2020 18 :31:00 . Confirmed: Patient, procedure, side, and site correct. Consent: Patien t. Indication: Abscess. Pre procedure exam: Circulation, motor, and sensory intact. Monitoring: Cardiac, blood pressure, continuous pulse oximetry, See nurse's wendi izaguirre. Description Anesthesia: 5 ml, 1% lidocaine. Incision: 0.5 cm incision was made. Technique: fluid collection was manually decompressed, wound probed. Kezia inage: small amount, purulent, bloody. Irrigation: copious, with saline. Post p rocedure exam: Circulation, motor, sensory examination intact. Patient tolerated: Well. Complications: None. Follow-up: Primary care physician. Performed by: Snoia leyva. Total time: 5 minutes. Impression and Plan Diagnosis Abscess - [id number] L02.91 , Discharge Plan Condition: Improved, Stable. Disposition: Medically cleared, Dischar ged: Time 04/14/2020 19:06:00, to home. Prescriptions: Launch Meds List (Selecte d) PrescriptionsPrescribedBactrim DS 800 mg-160 mg oral tablet: 1 tab, Oral, BID, for 5 day(s), 10 tab, 0 Refill(s). Patient was given the following educational mate rials: Abscess, Incision And Drainage. Follow up with: Hans adame 3 to 5 days keep area clean and dry. apply warm compresses daily 2 to 3 times, ashlee nge dressing daily. any worsening redness, fevers or other concerns return to ED. complete course of antibiotics. Counseled: Patient, Regarding diagnosis, Regarding diagnostic results, Regarding treatment plan, Regarding prescription, Patient indicate d understanding of instructions. Addendum Attestation: Scribe Attestation: Jimbo Hughes, 04/14/2020 18:41:00, Scribing for and in the presence of,Ronald MD, Alexander , Provider Attestation: I personally performed the services described in the documentation, reviewed and edited the documentation which was dictated to the scribe in my presence and it accurately records my words and actions., Claude Cardenas MD.04/14/2020 18:33:47 Comment by: Paulette Doll Pt did not have------- Paulette Doll JElectronically signed by Claude Cardenas MD 04/14/2020 19:26 EDTElectronic ally signed by LittleJimbo 04/14/2020 19:06 EDTElectronically signed by LittleJimbo 04/14/2020 19:07 EDT Name Value Range Interpretation Code Description Data Kelly rce(s) Supporting Document(s ) ID Date Data Source [id number] 03/30/2020 07:40:00 PM EDT [facility] Name Value Range Interpretation Description Data Sup porting Code Source(s) Document(s ) SARS [facility] coronavirus 2 RNA This lab was ordered by [facility] Turner and reported by [facility]. ID Date Data Source [id number] 03/23/2020 03:15:00 PM EDT [facility] Name Value Range Interpretation Description Data Sup porting Code Source(s) Document(s ) SARS [place] coronavirus 2 [facility] RNA [Presence] in Respiratory specimen by GUIDO with probe detection This lab was ordered by [facility] and reported by [facility] . ID Date Data Source [id number] 03/23/2020 05:06:00 PM EDT [facility] Name Value Range Interpretation Code Description Data Kelly rce(s) Supporting Document(s ) SOURCE: * [facility] NASOPHARYNGEAL SARS-CoV-2 (COVID-19) NEGATIVE NEGATIVE [facility] rufus Negative results do not preclude SARS-Co V-2 infection and should not be used as the sole basis for treatment or other patien t managementdecisions. Negative results must be combined with clinical obse rvations, patient history, and epidemiological information. Testing was performed using the [employer] Xpress SARS-CoV-2 real__time PCR assay which has received Emergency Use Authorization from theFood and Drug Administration (FDA) for the qualit ative detection of nucleic acid from SARS-CoV-2. The [employer] X[employer] SA RS-CoV-2 Letter of Authorization, along with the authorized Fact Sheet for [facility] Providers, the authorized Fact Sheet for Patients and authorized l eling are available on the FDA website: https://www.fda.gov/MedicalDevices/Safet y/EmergencySituations/qox895728.htm ID Date Data Source [id number] 03/23/2020 03:50:00 PM EDT [facility] Name Value Range Interpretation Description Data Sup porting Code Source(s) Document(s ) GLUCOSE 90 MG/DL 70-110 [facility] [facility] BUN 11 MG/DL 6-22 [facility] CREATININE 1.03 0.50-1.2 [place] MG/DL 0 [facility] SODIUM 140 135-145 [place] MMOL/L [facility] POTASSIUM 4.4 3.5-5.1 [place] mmol/L [facility] CHLORIDE 101 98-106 [place] MMOL/L [facility] CO2 28 20-29 [place] MMOL/L [facility] ANION GAP 11 7-16 [place] MMOL/L [facility] CALCIUM 9.6 8.7-10.7 [place] mg/dL [facility] TOT PROT 7.0 G/DL 6.1-8.0 [facility] ALBUMIN 4.5 G/DL 3.5-5.8 [facility] GLOBULIN 2.5 G/DL 1.3-4.5 [facility] BILIRUBIN,TOTA 0.2 0.3-1.2 Below low normal [place] L mg/dL [facility] ALK PHOS 117 U/L 50-136 [facility] SGOT (AST) 48 U/L 8-42 Above high normal [facility] SGPT (ALT) 37 U/L 30-65 [facility] eGFR >60 ">60.0" [facility] mL/min./1.73 square meter eGFR IF >60 ">60.0" [facility] mL/min./1.73 square meter BILIRUBIN,DIRECT <0.2 MG/DL 0.0-0.3 [facility] al ID Date Data Source [id number] 03/23/2020 03:38:00 PM EDT [facility] Name Value Range Interpretation Description Data Sup porting Code Source(s) Document(s ) AMPHETAMINE Negative NEGATIVE * [facility] CUTOFF LIMIT = 1000 NG/ML BARBITURATES Negative NEGATIVE * [facility] CUTOFF LIMIT = 300 NG/ML BENZODIAZEPINES Positive NEGATIVE * [facility] CUTOFF LIMIT = 300 NG/ML BUPRENORPHINE Negative NEGATIVE * [facility] CUTOFF LIMIT = 10 NG/ML COCAINE (METAB.) Positive NEGATIVE * [facility] CUTOFF LIMIT = 300 NG/ML CANNABINOID Negative NEGATIVE * [facility] CUTOFF LIMIT = 50 NG/ML METHADONE Positive NEGATIVE * [facility] CUTOFF LIMIT = 300 NG/ML METHAMPHETAMINE Negative NEGATIVE * [facility] CUTOFF LIMIT = 1000 NG/ML OPIATE SCREEN Negative NEGATIVE * [facility] CUTOFF LIMIT = 2000 NG/ML OXYCODONE/OXYMORPHONE Negative NEGATIVE * [facility] spital CUTOFF LIMIT = 100 NG/ML PHENCYCLIDINE Negative NEGATIVE * [facility] CUTOFF LIMIT = 25 NG/ML PROPOXYPHENE Negative NEGATIVE * [facility] CUTOFF LIMIT = 300 NG/ML TRICYCLIC ANTIDEPRESSANTS Negative NEGATIVE * [facility] CUTOFF LIMIT = 1000 NG/ML U BANANA CARRIER RDM 117.8 MG/DL 18.0-350.0 [facility] This assay provides only preliminary an alytical test results. A morespecific alternate chemical method must be used i n order to obtain aconfirmed analytical result. Gas chromatography/mass spectrom etry(GC/MS) is the preferred method. Clinical consideration andprofessional judgement should be applied to any drug of abuse testresult, particularly when preliminar y positive results are indicated. Low creatinine and specific gravity levels m ay indicate diluted urine. The absence of creatinine (<5 mg/dl) is indicative of a specimen not consistent with human urine. ID Date Data Source [id number] 03/23/2020 03:24:00 PM EDT [facility] Name Value Range Interpretation Description Data Sup porting Code Source(s) Document(s ) WHITE BLOOD 4.1 4.0-11.5 [place] CELL COUNT K/[facility] RBC 4.03 4.60-6.2 Below low normal [place] M/[address] HEMOGLOBIN 11.8 14.0-18. Below low normal [place] g/dL [address] [place] [address] HEMATOCRIT 35.7 % 42.0-52. Below low normal [address] MCV 88.6 FL 80.0-94. [address] MCH 29.3 PG 27.0-31. [address] MCHC 33.1 33.0-37. [place] G/DL [address] [place] [address] RDW 13.7 % 11.5-14. [address] PLT 188 140-440 [place] K/M [facility] MPV 9.8 FL 7.4-10.4 [facility] NEUT% 44 % [facility] IMM GRAN% 0 % [facility] LYMPH% 46 % [facility] MONO% 7 % [facility] EOS% 3 % [facility] BASO% 0 % [facility] NEUT ABS 1.8 1.7-8.6 [place] X10E3/[facility] IMM GRAN ABS 0.0 0.0-0.1 [place] x10E3/ Hospital LYMPH ABS 1.9 0.8-5.9 [place] X10E3/ Hospital MONO ABS 0.3 0.0-1.[address] [place] [id number] EOS ABS 0.1 0.0-0.7 [place] 826350/[facility] BASO ABS 0.0 0.0-0.2 [place] 826350/ Hospital ID Date Data Source [id number] 03/07/2020 02:19:00 PM EDT [facility] Name Value Range Interpretation Description Data Sup porting Code Source(s) Document(s ) SARS [facility] CORONAVIRUS 2 RNA This lab was ordered by [facility] Ac ct Bill Inter and reported by [facility]. Procedure Social History Code Duration Value Status Description Data Source(s ) Smoking 06/16/2020 Daily Smoker completed Daily Smoker [facility] Smoking 06/16/2020 Daily Smoker completed Daily Smoker [facility] 09:[facility] EDT Alcohol intake 06/16/2020 Current drinker completed Current drinker [facility] 12:00:00 AM of alcohol of alcohol [facility] EDT (finding) (finding) [facility] [employer] Tobacco use 06/16/2020 Never used completed Never used [facility] and exposure 12:00:00 AM [facility] EDT System [employer] Smoking 06/16/2020 Current every day completed Current every [facility] 12:00:00 AM smoker day smoker [facility] [employer] Smoking 06/02/2020 Tobacco smoking completed Tobacco smoking [facility] [place] 12:28:00 PM consumption consumption Hospital EDT unknown (finding) unknown (finding) Smoking 04/14/2020 Smokes tobacco completed Smokes tobacco [facility] 05:12:05 PM daily (finding) daily (finding) - P [facility] Smoking Unknown if ever completed Unknown if ever [facility] [place] smoked smoked Hospital Smoking Unknown if ever completed Unknown if ever [facility] [place] smoked smoked [facility] Smoking Unknown if ever completed Unknown if ever [facility] [place] smoked smoked Hospital Smoking Unknown if ever completed Unknown if ever [facility] [place] smoked smoked Hospital Vital Signs ID Date Data Source UNK Name Value Range Interpretation Description Data Code Source(s) Respiratory rate 18 /min 18 /min [facility] Body temperature 36.61 Elaina 36.61 Elaina [facility] Heart rate 85 /min 85 /min [facility] Diastolic blood 70 mm[Hg] 70 mm[Hg] [facility] pressure [facility] Systolic blood 128 mm[Hg] 128 mm[Hg] [place] s pressure [facility] Oxygen 98 % 98 % [facility] saturation in [facility] [employer] [employer] oximetry Body mass index 26.54 kg/m2 26.54 kg/m2 [facility] (BMI) [Ratio] [facility] [place] [facility] Body weight 83.915 kg 83.915 kg [facility] Body height 177.8 cm 177.8 cm [place] [facility] Body weight 83.027212 kg 83.139455 kg [facility] Body temperature 36.561154 Elaina 36.348626 Elaina [facility] Respiratory rate 25 /min 25 /min [facility] Oxygen 100 % 100 % [facility] saturation in [facility] Arterial blood Center by [facility]ulse oximetry Heart rate 88 /min 88 /min [facility] Body height 180.386424 cm 180.525014 cm [facility] Diastolic blood 93 mm[Hg] 93 mm[Hg] [facility] pressure Medical Center Systolic blood 125 mm[Hg] 125 mm[Hg] [facility] pressure Medical Center Body mass index 25.8 kg/m2 25.8 kg/m2 [facility] (BMI) [Ratio] Medical Center Diastolic blood 57 mm[Hg] 57 mm[Hg] [facility] pressure Hospital Systolic blood 111 mm[Hg] 111 mm[Hg] [facility] pressure Hospital Respiratory rate 18 /min 18 /min [facility] Heart rate 98 /min 98 /min [facility] Body temperature 36.18786 Elaina 36.17553 Elaina [facility] Body temperature 98.3 [degF] 98.3 [degF] [facility] Body mass index 27.0 kg/m2 27.0 kg/m2 [facility] (BMI) [Ratio] Hospital Body weight 189.60 [lb_av] 189.60 [lb_av] [facility] Body mass index 26.0 kg/m2 26.0 kg/m2 [facility] (BMI) [Ratio] Hospital Body weight 182.98 [lb_av] 182.98 [lb_av] [facility] Diastolic blood 88 mm[Hg] 88 mm[Hg] [facility] Hospital Systolic blood 142 mm[Hg] 142 mm[Hg] [facility] pressure Hospital Respiratory rate 20 /min 20 /min [facility] Heart rate 84 /min 84 /min [facility] Body temperature 36.68301 Elaina 36.27111 Elaina [facility] Body temperature 98.0 [degF] 98.0 [degF] [facility] Diastolic blood 78 mmHg 78 mmHg [facility] Systolic blood 131 mmHg 131 mmHg [facility] Respiratory rate 18 bpm 18 bpm [facility] Heart rate 77 bpm 77 bpm [facility] Body temperature 97.0 97.0 [facility] Diastolic blood 70 mm[Hg] 70 mm[Hg] [facility] Hospital Systolic blood 134 mm[Hg] 134 mm[Hg] [facility] pressure Hospital Respiratory rate 20 /min 20 /min [facility] Heart rate 70 /min 70 /min [facility] Body temperature 37.73509 Elaina 37.78909 Elaina [facility] Body temperature 98.7 [degF] 98.7 [degF] [facility] Body mass index 26.1 kg/m2 26.1 kg/m2 [facility] ins (BMI) [Ratio] Hospital Body weight 182 [lb_av] 182 [lb_av] [facility] Mean blood 105 mm[Hg] 105 mm[Hg] [place] pressure by [facility] Oxygen therapy [place] [Minimum Data Health - Set] [facility] Respiratory rate 16 br/min 14-20 Normal (applies to 16 br/min [place] br/min non-numeric Health - results) [facility] Heart rate 64 bpm 60-100 Normal (applies to 64 bpm [place] bpm non-numeric Health - results) [facility] Diastolic blood 86 mm[Hg] 60-90 Normal (applies to 86 mm[Hg] [facility] pressure mmHg non-numeric Health - results) [facility] Systolic blood 144 mm[Hg] 90-130 Above high normal 144 mm[Hg] [place] pressure mmHg [facility] Oxygen 100 % 94-100 % Normal (applies to 100 % [place] saturation in non-numeric Health - Blood Postductal results) [place] [facility] oximetry Center Body mass index 27.14 kg/m2 27.14 kg/m2 [place] (BMI) [Ratio] [facility] Body weight 86 kg 86 kg [place] Measured [facility] Body height 178 cm 178 cm [place] [facility] Body mass index 27.14 kg/m2 27.14 kg/m2 [place] (BMI) [Ratio] [facility] Oxygen 99 % 94-100 % Normal (applies to 99 % [place] saturation in non-numeric Health - Blood Postductal results) [place] [facility] oximetry Center Oxygen therapy [place] [Minimum Data Health - Set] [facility] Diastolic blood 90 mm[Hg] 60-90 Normal (applies to 90 mm[Hg] [place] pressure mmHg non-numeric Health - results) [facility] Systolic blood 153 mm[Hg] 90-130 Above high normal 153 mm[Hg] [place] pressure mmHg [facility] Respiratory rate 18 br/min 14-20 Normal (applies to 18 br/min [place] br/min non-numeric Health - results) [facility] Heart rate 94 bpm 60-100 Normal (applies to 94 bpm [place] e bpm non-numeric Health - results) [facility] Oral temperature 98.2 [degF] 96.4-99.1 Normal (applies to 98.2 [degF ] [place] DegF non-numeric Health - results) [facility] Body mass index 26.0 kg/m2 26.0 kg/m2 [facility] ins (BMI) [Ratio] Hospital Body weight 185.39 [lb_av] 185.39 [lb_av] [facility] Diastolic blood 82 mm[Hg] 82 mm[Hg] [facility] pressure Hospital Systolic blood 122 mm[Hg] 122 mm[Hg] [facility] ns pressure Hospital Respiratory rate 18 /min 18 /min [facility] Heart rate 94 /min 94 /min [facility] Body temperature 36.63255 Elaina 36.74234 Elaina [facility] Body temperature 98.5 [degF] 98.5 [degF] [facility] Diastolic blood 63 mm[Hg] 63 mm[Hg] [facility] Hospital Systolic blood 101 mm[Hg] 101 mm[Hg] [facility] pressure Hospital Respiratory rate 20 /min 20 /min [facility] Heart rate 81 /min 81 /min [facility] Body temperature 37.76767 Elaina 37.46586 Elaina [facility] Body temperature 99.0 [degF] 99.0 [degF] [facility] Body mass index 23.0 kg/m2 23.0 kg/m2 [place] [facility] ins (BMI) [Ratio] Hospital Body weight 160.34 [lb_av] 160.34 [lb_av] [facility] ID Date Data Source [id number] 04/14/2020 03:51:23 PM EDT [facility] l Name Value Range Interpretation Code Description Data Source(s) Weight 83.03 KG 83.03 KG [facility] Height 177.8 CM 177.8 CM [facility] status N N [place] Corey hooper [Interpretation] - Reported Patient Treatment Plan of Care Planned Activity Planned Date Details Description Data Source (s) No data available for [facility] Bactrim DS 800 mg-160 04/14/2020 07:04:00 [facility] [place] mg oral tablet PM EDT Hospital [facility] er Dilaudid (Hy 03/19/2020 11:34:14 [facility] EDT [facility] FENTANYL Inj 100 mcq 03/19/2020 11:34:05 [facility] EDT [facility] 0.9% NaCl IV 03/19/2020 11:10:15 [facility] EDT [facility] Tdap (Adacel) Inj 03/19/2020 11:10:08 [facility] EDT [facility] MORphine Sulfate Inj 03/19/2020 09:47:25 [facility] EDT [facility] methadone HCl [facility] (METHADONE PO) [facility]
[2020-06-19] MEDS: hydrOXYzine PAMOATE 25 MG CAPSULE (FP) PO SCH ×3 (13:27→22:18)
[2020-06-19] MEDS: LORazepam 2 MG TABLET PO SCH ×3 (13:27→22:18)
[2020-06-19 14:29] LABS: HEMATOCRIT 37.2 % (35.4-49); HEMOGLOBIN 12.9 GM/dL (11.7-16.9); MCH 30.6 pg (25.7-33.7); MCHC 34.6 g/dl (32.0-35.9); MEAN CELL VOLUME 88.5 fl (80-96); PLATELET COUNT 165 K/MM3 (134-434); RBC 4.21 M/mm3 (4.00-5.60); RDW 13.7 % (11.9-15.9); WHITE BLOOD COUNT 5.2 K/mm3 (4.0-10.0)
[2020-06-19 14:54] LABS: ALBUMIN 3.5 g/dl (3.4-5.0); BILIRUBIN,TOTAL 0.3 mg/dL (0.2-1); BLOOD UREA NITROGEN 19.2 mg/dL (7-18); CREATININE 0.9 mg/dL (0.55-1.3); POTASSIUM 4.2 mmol/L (3.5-5.1); TOT PROT 6.8 g/dl (6.4-8.2)
[2020-06-19] MEDS: THIAMINE HCL 100 MG TABLET (FP) PO SCH (22:18)
[2020-06-19] MEDS: MELATONIN 5 MG TABLETS PO SCH (22:18)
[2020-06-20] MEDS: LORazepam 2 MG TABLET PO SCH ×4 (05:23→22:29)
[2020-06-20] MEDS: hydrOXYzine PAMOATE 25 MG CAPSULE (FP) PO SCH ×5 (05:24→22:29)
--- NOTE | 2020-06-20 09:02 | PN ---
S CIWA - CIWA Score Nausea/Vomitin-Mild Nausea/No Vomiting Muscle Tremors: 2 Anxiety: 2 Agitation: 2 Paroxysmal Sweats: 1-Minimal Palms Moist Orientation: 0-Oriented Tacttile Disturbances: 1-Very Mild Itch/Numbness Auditory Disturbances: 0-None Visual Disturbances: 0-None Headache: 2-Mild CIWA-Ar Total Score: 11 S Progress Note (SOAP) Subjective: alert,irritable,anxious,interrupted sleep,tremor,aching pain Objective: 06/20/20 16:50 Vital Signs Temperature 97.1 F L 06/20/20 12:52 Pulse Rate 78 06/20/20 12:52 Respiratory Rate 18 06/20/20 12:52 Blood Pressure 131/81 06/20/20 12:52 O2 Sat by Pulse Oximetry (%) 97 06/20/20 12:52 06/20/20 16:50 Laboratory Last Values WBC 5.2 K/mm3 (4.0-10.0) 06/19/20 11:25 RBC 4.21 M/mm3 (4.00-5.60) 06/19/20 11:25 Hgb 12.9 GM/dL (11.7-16.9) 06/19/20 11:25 Hct 37.2 % (35.4-49) 06/19/20 11:25 MCV 88.5 fl (80-96) 06/19/20 11:25 MCH 30.6 pg (25.7-33.7) 06/19/20 11:25 MCHC 34.6 g/dl (32.0-35.9) 06/19/20 11:25 RDW 13.7 % (11.9-15.9) 06/19/20 11:25 Plt Count 165 K/MM3 (134-434) 06/19/20 11:25 MPV 10.0 fl (7.5-11.1) 06/19/20 11:25 Sodium 141 mmol/L (136-145) 06/19/20 11:25 Potassium 4.2 mmol/L (3.5-5.1) 06/19/20 11:25 Chloride 105 mmol/L (98-107) 06/19/20 11:25 Carbon Dioxide 31 mmol/L (21-32) 06/19/20 11:25 Anion Gap 5 MMOL/L (8-16) L 06/19/20 11:25 BUN 19.2 mg/dL (7-18) H 06/19/20 11:25 Creatinine 0.9 mg/dL (0.55-1.3) 06/19/20 11:25 Est GFR (CKD-EPI)AfAm 135.19 06/19/20 11:25 Est GFR (CKD-EPI)NonAf 116.64 06/19/20 11:25 Random Glucose 95 mg/dL (74-106) 06/19/20 11:25 Calcium 9.0 mg/dL (8.5-10.1) 06/19/20 11:25 Total Bilirubin 0.3 mg/dL (0.2-1) 06/19/20 11:25 AST 26 U/L (15-37) 06/19/20 11:25 ALT 59 U/L (13-61) 06/19/20 11:25 Alkaline Phosphatase 108 U/L (45-117) 06/19/20 11:25 Total Protein 6.8 g/dl (6.4-8.2) 06/19/20 11:25 Albumin 3.5 g/dl (3.4-5.0) 06/19/20 11:25 Syphilis Serology Non-reactive (NONREACTIVE) 06/19/20 11:25 COVID-19 (GUIDO) Not detected (Not Detected) 06/19/20 11:50 HIV Ag/Ab Combo Qual Negative (NEGATIVE) 06/19/20 11:25 Assessment: 06/20/20 16:51 withdrawal symptom Plan: continue detox ativan regimen,fluid ,continue methadone 70 mgs po daily maintenance
[2020-06-20] MEDS ORDERED: METHADONE 40 MG, METHADONE 30 MG PO ONE (09:15)
[2020-06-20] MEDS ORDERED: METHADONE HCL 10 MG TABLET ONE (09:27)
[2020-06-20] MEDS ORDERED: METHADONE HCL 40 MG DISPERSABLE TABLET ONE (09:27)
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
[2020-06-20] MEDS ORDERED: METHADONE HCL 40 MG DISPERSABLE TABLET PO SCH (10:00)
[2020-06-20] MEDS: NICOTINE 7 MG/24 HOURS TOPICAL PATCH TD SCH (10:10)
[2020-06-20] MEDS: PRENATAL VITAMINS W/ FOLIC ACID TABLET (FP) PO SCH (10:11)
[2020-06-20] MEDS: THIAMINE HCL 100 MG TABLET (FP) PO SCH (22:29)
[2020-06-20] MEDS: MELATONIN 5 MG TABLETS PO SCH (22:29)
[2020-06-21] MEDS ORDERED: METHADONE HCL 10 MG TABLET ONE (04:53)
[2020-06-21] MEDS ORDERED: METHADONE HCL 40 MG DISPERSABLE TABLET ONE (04:53)
[2020-06-21] MEDS: LORazepam 1 MG TABLET PO SCH ×2 (05:35→10:21)
[2020-06-21] MEDS: hydrOXYzine PAMOATE 25 MG CAPSULE (FP) PO SCH ×3 (05:35→13:58)
[2020-06-21] MEDS ORDERED: METHADONE 40 MG, METHADONE 30 MG PO SCH (06:00)
[2020-06-21] MEDS: NICOTINE 7 MG/24 HOURS TOPICAL PATCH TD SCH (10:21)
[2020-06-21] MEDS: PRENATAL VITAMINS W/ FOLIC ACID TABLET (FP) PO SCH (10:21)
--- NOTE | 2020-06-21 11:57 | PN ---
S CIWA - CIWA Score Nausea/Vomitin-No Nausea/No Vomiting Muscle Tremors: None Anxiety: 2 Agitation: 0-Normal Activity Paroxysmal Sweats: 3 Orientation: 0-Oriented Tacttile Disturbances: 0-None Auditory Disturbances: 0-None Visual Disturbances: 0-None Headache: 2-Mild CIWA-Ar Total Score: 7 [facility] Progress Note (SOAP) Subjective: c/o sweats, anxiety, and headache. Objective: 06/21/20 11:54 Vital Signs 06/21/20 06/21/20 06:34 08:49 Temperature 97.3 F L 97.1 F L Pulse Rate 79 80 Respiratory 18 18 Rate Blood Pressure 135/82 133/87 O2 Sat by Pulse 96 Oximetry (%) Laboratory Last Values WBC 5.2 K/mm3 (4.0-10.0) 06/19/20 11:25 RBC 4.21 M/mm3 (4.00-5.60) 06/19/20 11:25 Hgb 12.9 GM/dL (11.7-16.9) 06/19/20 11:25 Hct 37.2 % (35.4-49) 06/19/20 11:25 MCV 88.5 fl (80-96) 06/19/20 11:25 MCH 30.6 pg (25.7-33.7) 06/19/20 11:25 MCHC 34.6 g/dl (32.0-35.9) 06/19/20 11:25 RDW 13.7 % (11.9-15.9) 06/19/20 11:25 Plt Count 165 K/MM3 (134-434) 06/19/20 11:25 MPV 10.0 fl (7.5-11.1) 06/19/20 11:25 Sodium 141 mmol/L (136-145) 06/19/20 11:25 Potassium 4.2 mmol/L (3.5-5.1) 06/19/20 11:25 Chloride 105 mmol/L (98-107) 06/19/20 11:25 Carbon Dioxide 31 mmol/L (21-32) 06/19/20 11:25 Anion Gap 5 MMOL/L (8-16) L 06/19/20 11:25 BUN 19.2 mg/dL (7-18) H 06/19/20 11:25 Creatinine 0.9 mg/dL (0.55-1.3) 06/19/20 11:25 Est GFR (CKD-EPI)AfAm 135.19 06/19/20 11:25 Est GFR (CKD-EPI)NonAf 116.64 06/19/20 11:25 Random Glucose 95 mg/dL (74-106) 06/19/20 11:25 Calcium 9.0 mg/dL (8.5-10.1) 06/19/20 11:25 Total Bilirubin 0.3 mg/dL (0.2-1) 06/19/20 11:25 AST 26 U/L (15-37) 06/19/20 11:25 ALT 59 U/L (13-61) 06/19/20 11:25 Alkaline Phosphatase 108 U/L (45-117) 06/19/20 11:25 Total Protein 6.8 g/dl (6.4-8.2) 06/19/20 11:25 Albumin 3.5 g/dl (3.4-5.0) 06/19/20 11:25 Syphilis Serology Non-reactive (NONREACTIVE) 06/19/20 11:25 COVID-19 (GUIDO) Not detected (Not Detected) 06/19/20 11:50 HIV Ag/Ab Combo Qual Negative (NEGATIVE) 06/19/20 11:25 Labs noted. Assessment: 06/21/20 11:56 AOX3, in no acute respiratory distress. Full ROM, ambulating in the unit. Withdrawal symptoms. Plan: continue detox.
[2020-06-21 13:14] VITALS: BP 139/86; PULSE 77; TEMP 98.4
--- NOTE | 2020-06-21 15:01 | DS ---
[facility] Detox Discharge Summary Admission Date: 06/19/20 Discharge Date: 06/21/20 (Pt left AMA) - History Present History: Sedative Dependence Additional Comments: Pt left AMA. Pt did not complete the detox protocol. Pt states, "i have to leave". An attempt to let pt stay and complete the detox protocol failed. Pt is encouraged to follow-up with an outpatient CD program and also to follow-up with his pmd which he verbalized understanding. Pt is AOX3, in no acute respiratory distress, Full ROM, and ambulatory. Pertinent Past History: h/o benzo use disorder. - Physical Exam Results Vital Signs: Vital Signs Temperature 98.4 F 06/21/20 12:16 Pulse Rate 77 06/21/20 12:16 Respiratory Rate 18 06/21/20 12:16 Blood Pressure 139/86 06/21/20 12:16 O2 Sat by Pulse Oximetry (%) 99 06/21/20 12:16 Vital Signs 06/21/20 06/21/20 08:49 12:16 Temperature 97.1 F L 98.4 F Pulse Rate 80 77 Respiratory 18 18 Rate Blood Pressure 133/87 139/86 O2 Sat by Pulse 99 Oximetry (%) Laboratory Last Values WBC 5.2 K/mm3 (4.0-10.0) 06/19/20 11:25 RBC 4.21 M/mm3 (4.00-5.60) 06/19/20 11:25 Hgb 12.9 GM/dL (11.7-16.9) 06/19/20 11:25 Hct 37.2 % (35.4-49) 06/19/20 11:25 MCV 88.5 fl (80-96) 06/19/20 11:25 MCH 30.6 pg (25.7-33.7) 06/19/20 11:25 MCHC 34.6 g/dl (32.0-35.9) 06/19/20 11:25 RDW 13.7 % (11.9-15.9) 06/19/20 11:25 Plt Count 165 K/MM3 (134-434) 06/19/20 11:25 MPV 10.0 fl (7.5-11.1) 06/19/20 11:25 Sodium 141 mmol/L (136-145) 06/19/20 11:25 Potassium 4.2 mmol/L (3.5-5.1) 06/19/20 11:25 Chloride 105 mmol/L (98-107) 06/19/20 11:25 Carbon Dioxide 31 mmol/L (21-32) 06/19/20 11:25 Anion Gap 5 MMOL/L (8-16) L 06/19/20 11:25 BUN 19.2 mg/dL (7-18) H 06/19/20 11:25 Creatinine 0.9 mg/dL (0.55-1.3) 06/19/20 11:25 Est GFR (CKD-EPI)AfAm 135.19 06/19/20 11:25 Est GFR (CKD-EPI)NonAf 116.64 06/19/20 11:25 Random Glucose 95 mg/dL (74-106) 06/19/20 11:25 Calcium 9.0 mg/dL (8.5-10.1) 06/19/20 11:25 Total Bilirubin 0.3 mg/dL (0.2-1) 06/19/20 11:25 AST 26 U/L (15-37) 06/19/20 11:25 ALT 59 U/L (13-61) 06/19/20 11:25 Alkaline Phosphatase 108 U/L (45-117) 06/19/20 11:25 Total Protein 6.8 g/dl (6.4-8.2) 06/19/20 11:25 Albumin 3.5 g/dl (3.4-5.0) 06/19/20 11:25 Syphilis Serology Non-reactive (NONREACTIVE) 06/19/20 11:25 COVID-19 (GUIDO) Not detected (Not Detected) 06/19/20 11:50 HIV Ag/Ab Combo Qual Negative (NEGATIVE) 06/19/20 11:25 Labs noted. Pertinent Admission Physical Exam Findings: withdrawal symptoms. - Treatment Hospital Course: Detox Protocol Followed - Medication Discharge Medications: Ambulatory Orders Methadone [Dolophine -] 70 mg PO DAILY 06/19/20 - Diagnosis (1) Sedative, hypnotic or anxiolytic dependence with withdrawal, unspecified Current Visit: Yes Status: Acute (2) Nicotine dependence Current Visit: Yes Status: Chronic Qualifiers: Nicotine product type: cigarettes Substance use status: uncomplicated Qualified Code(s): F17.210 - Nicotine dependence, cigarettes, uncomplicated (3) Opioid dependence on agonist therapy Current Visit: Yes Status: Chronic - AMA Did Patient Leave Against Medical Advice: Yes
[2020-06-22] MEDS ORDERED: LORazepam 0.5 MG TABLET PO PRN
[2020-06-22] MEDS ORDERED: LORazepam 0.5 MG TABLET PO SCH (05:00)
[2020-06-23] MEDS ORDERED: LORazepam 0.5 MG TABLET PO ONE (05:00)
--- NOTE | 2020-06-24 11:45 | EKG ---
Test Reason : Blood Pressure : / mmHG Vent. Rate : 057 BPM Atrial Rate : 057 BPM P-R Int : 142 ms QRS Dur : 098 ms QT Int : 468 ms P-R-T Axes : 067 065 043 degrees QTc Int : 455 ms SINUS BRADYCARDIA OTHERWISE NORMAL ECG WHEN COMPARED WITH ECG OF 21-MAR-2019 20:29, NO SIGNIFICANT CHANGE WAS FOUND Confirmed by Kel Markham ([id number]) on 06/24/2020 11:45:22 AM Referred By: Confirmed By:Kel Markham
== END 2020-06-21 14:53 | disposition left against medical advice (07) | DRG 770 ==
LOC: YASAS 10:07 → Y3N 10:59
PROVIDERS: ADMIT Allergy & Immunology; ATTEND Allergy & Immunology
PROC: HZ2ZZZZ Detoxification Services for Substance Abuse Treatment (ICD-10-PCS; principal; 2020-06-19)
DX: F13.230 Sedative, hypnotic or anxiolytic dependence with withdrawal, uncomplicated (principal); F11.20 Opioid dependence, uncomplicated; F17.210 Nicotine dependence, cigarettes, uncomplicated; F19.282 Other psychoactive substance dependence with psychoactive substance-induced sleep disorder; F41.9 Anxiety disorder, unspecified; F32.9 Major depressive disorder, single episode, unspecified; G47.00 Insomnia, unspecified; Z86.69 Personal history of other diseases of the nervous system and sense organs; Z98.890 Other specified postprocedural states; Z56.0 Unemployment, unspecified; Z59.0 Homelessness
CPT/HCPCS: 36415; 80053; 85027; 86780; 87389; 93005; 93010; U0003

== ENCOUNTER 2020-10-16 13:12 | Inpatient (IN) | payer OTHER ==
[2020-10-16 17:20] VITALS: BMI 31.5
[2020-10-16] MEDS ORDERED: METHOCARBAMOL 500 MG TABLET PO PRN (17:58)
[2020-10-16] MEDS ORDERED: hydrOXYzine PAMOATE 25 MG CAPSULE (FP) PO PRN (17:58)
[2020-10-16] MEDS ORDERED: MAGNESIUM CITRATE 300 ML BOTTLE PO PRN (17:58)
[2020-10-16] MEDS ORDERED: guaiFENesin 200 MG/10 ML 10 ML UNIT-DOSE CUPS PO PRN (17:58)
[2020-10-16] MEDS ORDERED: MENTHOL/PHENOL 1 EACH UD MM PRN (17:58)
[2020-10-16] MEDS ORDERED: BISMUTH SUBSALICYLATE 524 MG/30 ML UD PO PRN (17:58)
[2020-10-16] MEDS ORDERED: ACETAMINOPHEN 325 MG TABLET (FP) PO PRN ×2 (17:58)
[2020-10-16] MEDS ORDERED: IBUPROFEN 400 MG TABLET (FP) PO PRN (17:58)
[2020-10-16] MEDS ORDERED: ONDANSETRON *ODT* 4 MG TABLET SL PRN (17:58)
[2020-10-16] MEDS ORDERED: DICYCLOMINE HCL 10 MG CAPSULE PO PRN (17:58)
[2020-10-16] MEDS ORDERED: P-EPHED 60MG/TRIPROLIDI 2.5MG TABLET PO PRN (17:58)
[2020-10-16] MEDS ORDERED: MAG HYDROX/AL HYDROX/SIMETH 30 ML UNIT-DOSE CUP PO PRN (17:58)
[2020-10-16] MEDS ORDERED: MAGNESIUM HYDROX 2400MG/30ML ORAL SUSPENSION 30 ML CUP PO PRN (17:58)
[2020-10-16] MEDS: diazePAM 5 MG TABLET PO PRN (20:06)
[2020-10-16] MEDS: diazePAM 5 MG TABLET PO SCH (22:30)
[2020-10-16] MEDS: THIAMINE HCL 100 MG TABLET (FP) PO SCH (22:30)
[2020-10-16] MEDS: MELATONIN 5 MG TABLETS PO SCH (22:31)
[2020-10-17] MEDS: diazePAM 5 MG TABLET PO SCH ×4 (05:19→22:34)
[2020-10-17] MEDS: METHADONE HCL 40 MG DISPERSABLE TABLET PO SCH (10:21)
[2020-10-17] MEDS: PRENATAL VITAMINS W/ FOLIC ACID TABLET (FP) PO SCH (10:22)
[2020-10-17] MEDS: NICOTINE 21 MG/24 HOURS TOPICAL PATCH TD SCH (11:28)
[2020-10-17 14:43] LABS: HEMATOCRIT 39.8 % (35.4-49); HEMOGLOBIN 13.4 GM/dL (11.7-16.9); MCH 30.3 pg (25.7-33.7); MCHC 33.6 g/dl (32.0-35.9); MEAN CELL VOLUME 90.2 fl (80-96); MEAN PLT VOLUME 9.5 fl (7.5-11.1); PLATELET COUNT 221 K/MM3 (134-434); RBC 4.41 M/mm3 (4.00-5.60); RDW 13.8 % (11.9-15.9); WHITE BLOOD COUNT 4.5 K/mm3 (4.0-10.0)
[2020-10-17 14:44] LABS: POTASSIUM 4.1 mmol/L (3.5-5.1)
[2020-10-17 14:47] LABS: ALBUMIN 3.8 g/dl (3.4-5.0); BLOOD UREA NITROGEN 13.4 mg/dL (7-18); CALCIUM 9.4 mg/dL (8.5-10.1)
[2020-10-17 14:51] LABS: CREATININE 0.9 mg/dL (0.55-1.3)
[2020-10-17 14:52] LABS: BILIRUBIN,TOTAL 0.9 mg/dL (0.2-1); TOT PROT 6.7 g/dl (6.4-8.2)
[2020-10-17] MEDS: THIAMINE HCL 100 MG TABLET (FP) PO SCH (22:33)
[2020-10-17] MEDS: MELATONIN 5 MG TABLETS PO SCH (22:33)
[2020-10-17] MEDS: BACITRACIN 0.9 GM PACKET TP SCH (22:36)
[2020-10-17] MEDS: SUVOREXANT 10 MG TABLET PO PRN (22:36)
[2020-10-18] MEDS: METHADONE HCL 40 MG DISPERSABLE TABLET PO SCH (05:25)
[2020-10-18] MEDS: diazePAM 5 MG TABLET PO SCH ×3 (05:25→22:44)
[2020-10-18] MEDS: NICOTINE 21 MG/24 HOURS TOPICAL PATCH TD SCH (10:17)
[2020-10-18] MEDS: BACITRACIN 0.9 GM PACKET TP SCH ×2 (10:18→22:44)
[2020-10-18] MEDS: PRENATAL VITAMINS W/ FOLIC ACID TABLET (FP) PO SCH (10:18)
[2020-10-18] MEDS: NICOTINE POLACRILEX 2 MG GUM BUC PRN (12:23)
[2020-10-18] MEDS: MELATONIN 5 MG TABLETS PO SCH (22:44)
[2020-10-18] MEDS: THIAMINE HCL 100 MG TABLET (FP) PO SCH (22:45)
[2020-10-19] MEDS: diazePAM 5 MG TABLET PO SCH ×2 (05:27→19:27)
[2020-10-19] MEDS: METHADONE HCL 40 MG DISPERSABLE TABLET PO SCH (05:27)
[2020-10-19] MEDS: NICOTINE POLACRILEX 2 MG GUM BUC PRN (10:15)
[2020-10-19] MEDS: diazePAM 5 MG TABLET PO PRN (10:18)
[2020-10-19] MEDS: PRENATAL VITAMINS W/ FOLIC ACID TABLET (FP) PO SCH (10:19)
[2020-10-19] MEDS: BACITRACIN 0.9 GM PACKET TP SCH ×2 (12:50→22:24)
[2020-10-19] MEDS: NICOTINE 21 MG/24 HOURS TOPICAL PATCH TD SCH (12:50)
[2020-10-19] MEDS: SUVOREXANT 10 MG TABLET PO PRN (22:23)
[2020-10-19] MEDS: THIAMINE HCL 100 MG TABLET (FP) PO SCH (22:24)
[2020-10-19] MEDS: MELATONIN 5 MG TABLETS PO SCH (22:24)
[2020-10-20] MEDS: METHADONE HCL 40 MG DISPERSABLE TABLET PO SCH (05:19)
[2020-10-20 05:57] VITALS: BP 108/60; PULSE 58; TEMP 97.1
[2020-10-20] MEDS ORDERED: diazePAM 5 MG TABLET PO ONE (06:00)
== END 2020-10-20 09:04 | disposition home or self-care (01) | DRG 773 ==
LOC: YASAS 13:12 → Y6N 18:47
PROVIDERS: ADMIT Allergy & Immunology; ATTEND Allergy & Immunology
PROC: HZ2ZZZZ Detoxification Services for Substance Abuse Treatment (ICD-10-PCS; principal; 2020-10-16)
DX: F13.230 Sedative, hypnotic or anxiolytic dependence with withdrawal, uncomplicated (principal); F11.20 Opioid dependence, uncomplicated; F14.10 Cocaine abuse, uncomplicated; F12.10 Cannabis abuse, uncomplicated; F17.210 Nicotine dependence, cigarettes, uncomplicated; F19.24 Other psychoactive substance dependence with psychoactive substance-induced mood disorder; F42.4 Excoriation (skin-picking) disorder; G47.00 Insomnia, unspecified; M54.5 Low back pain; G89.29 Other chronic pain; Z86.69 Personal history of other diseases of the nervous system and sense organs; Z87.828 Personal history of other (healed) physical injury and trauma; Z98.890 Other specified postprocedural states; Z56.0 Unemployment, unspecified; Z59.0 Homelessness
CPT/HCPCS: 36415; 80053; 85027; 86780; 87389; C9803; U0003